=== PATIENT | male | born 1960 | race Caucasian/White ===

== ENCOUNTER → 2025-04-22 | Outpatient (CLI) | payer BC, SELFPAY ==
[2025-04-22 11:13] LABS: Hematocrit 40.7 % (40-54); Hemoglobin 14.1 g/dL (13.0-16.5); Immature Granulocytes Count 0.020 X10^3/uL (0.0-0.0); Mean Corp Hgb Conc 34.6 g/dL (32-36); Mean Corpuscular Volume 95.1 fL (80-94); Mean Platelet Vol. 10.6 fl (6.2-12.0); NRBC Flagged by Analyzer 0 % (0-5); Platelet Count 258 K/mm3 (150-450); RBC Distribution Width CV 12.3 % (11.6-14.6); RBC Distribution Width SD 42.5 fl (35.1-43.9); Red Blood Count 4.28 M/mm3 (4.6-6.2); White Blood Count 6.5 K/mm3 (4.4-11.0)
--- OUTSIDE RECORDS SUMMARY | 2025-04-22 21:01 | XMS RPT_ITS | CCD ---
Author Organization [facility] Care Team Providers Care Business Office Associate Name Role Phone Angela Gomez Unavailable Unavailable OnielKatie Unavailable Unavailable Angela Gomez Unavailable Unavailable Oniel, Katie Unavailable Unavailable Angela Gomez Unavailable Unavailable Oniel, Katie Unavailable Unavailable ONIEL, KATIE Unavailable Unavailable ONIEL, KATIE Unavailable Unavailable ONIEL, KATIE Unavailable Unavailable ONIEL, KATIE Unavailable Unavailable ONIEL, KATIE Unavailable Unavailable ONIEL, KATIE Unavailable Unavailable ONIEL, KATIE Unavailable Unavailable ONIEL, KATIE Unavailable Unavailable ONIEL, KATIE Unavailable Unavailable ANGELA GOMEZ Unavailable Unavailable ANGELA GOMEZ Unavailable Unavailable ONIEL, KATIE Unavailable Unavailable IOANA NEVES Attending Unavailable IOANA NEVES Primary Care Unavailable IOANA NEVES Admitting Unavailable FELIZ GARCIA-SHALA, NARA Primary Care Physician ([phone]) FELIZ JAMIL, NARA Primary Care Physician ([phone]) FELIZ JAMIL, NARA Attending Unavailabl e [employer] MANAG[employer] ASSOCIATE, NARA Primary Care Unavailabl e [employer] MANAG[employer] ASSOCIATE, NARA Attending Unavailabl e [address] [employer] MANAGEMENT ASSOCIATE, NARA Primary Care Unavailabl e [employer] [address] [employer] MANAGEMENT ASSOCIATE, NARA Primary Care Unavailabl e [employer] [address] [employer]CASH MANAGEMENT ASSOCIATE, NARA Attending Unavailabl ANASTASIA Bashir Attending Unavailable [address] [address] [employer] MANAGEMENT ASSOCIATE, NARA Primary Care Unavailabl e [employer] [employer] MANAGEMENT ASSOCIATE, NARA Attending Unavailabl e [employer] [address] [employer] MANAGEMENT ASSOCIATE, NARA Primary Care Unavailabl e Allergies Allergy Classification Reported Allergen(s) Allergy Type Date of Onset Reaction(s) Facility (7 sources) Coconut extract Drug Allergy [facility] Medications Current Medications Medication Drug Class(es) Dates Sig (Normalized) Sig (Original) acetaminophen 500 mg oral tablet (7 sources) Start: 10-14-2015 Tylenol Extra Strength 500 mg oral tablet Dose : 1,000 mg = 2 tab(s), Oral, q4h, PRN as needed for pain, # 120 tab(s), 0 Refill(s) Start Date: 10/14/15 Status: Ordered Quantity: 120.0 Unit: tab(s) Repeat number: 1 albuterol 0.83 mg/ml inhalation solution (7 sources) beta2-Adrenergic Agonist Start: 10-14-2015 take 1 dose by inhalation every six hours as needed albuterol 2.5 mg/3 mL (0.083%) inhalation solution Dose : 2.5 mg = 3 mL, Inhalation, q6h, PRN as needed for wheezing, 0 Refill(s) Start Date: 10/14/15 Status: Ordered Repeat number: 1 Start: 10-14-2015 take 1 dose by inhal ation every six hours as needed albuterol 2.5 mg/3 mL (0.083%) inhalation solution Dose : 2.5 mg = 3 mL, Inhalation, q6h, PRN as needed for wheezing, 0 Refill(s) Start Date: 10/14/15 Status: Ordered Albuterol (Eqv-ProAir HFA) 90 mcg/inh inhalation aerosol (7 sources) Start: 12-01-2024 take 1 dose by inhalation every six hours Albuterol (Eqv-ProAir HFA) 90 mcg/inh inhalation aerosol Dose = 1 puff(s), Inhalation, q6hr, # 8 gram(s), 11 Refill(s), Pharmacy: [facility] , Asthma, 170.2, cm, 12/01/24 7:22:00 EST, Height, kg, 12/01/24 7:22:00 EST, Dosing Weight Start Date: 12/01/24 Status: Ordered Quantity: 8.0 Unit: g Repeat number: 12 Indications: Unspecified asthma, uncomplicated; Start: 10-04-2021 take 1 dose by inhal ation every six hours Albuterol (Eqv-ProAir HFA) 90 mcg/inh inhalation aerosol Dose = 1 puff(s), Inhalation, q6hr, # 8 gram(s), 11 Refill(s), Pharmacy: [facility], 172.7, cm, 10/03/21 7:56:00 EST, Height, kg, 10/03/21 7:56:00 EST, Dosing Weight Start Date: 10/04/21 Status: Ordered Quantity: 8.0 Unit: g Repeat number: 12 Start: 10-04-2021 take 1 dose by inhal ation every six hours Albuterol (Eqv-ProAir HFA) 90 mcg/inh inhalation aerosol Dose = 1 puff(s), Inhalation, q6hr, # 8 gram(s), 11 Refill(s), Pharmacy: [facility], 172.7, cm, 10/03/21 7:56:00 EST, Height, kg, 10/03/21 7:56:00 EST, Dosing Weight Start Date: 10/04/21 Status: Ordered aspirin 81 mg delayed release oral tablet (7 sources) Platelet Aggregation Inhibitor, Nonsteroidal Anti-inflammatory Drug Start: 09-14-2019 aspirin 81 mg ora l delayed release tablet Dose : 81 mg = 1 tab(s), Oral, qDay, 0 Refill(s) Start Date: 09/14/19 Status: Ordered Repeat number: 1 Start: 09-14-2019 aspirin 81 mg oral delayed release tablet Dose : 81 mg = 1 tab(s), Oral, BID, 0 Refill(s) Start Date: 09/14/19 Status: Ordered azelastine hydrochloride 0.137 mg/actuat metered dose nasal spray (2 sources) Histamine-1 Receptor Antagonist Start: 01-01-2025 azelastine 137 mcg/inh (0.1%) nasal spray 137 mcg Dose = 1 spray(s), Nostril, each, BID, PRN as needed for allergy symptoms, 0 Refill(s) Start Date: 01/01/25 Status: Ordered Repeat number: 1 Start: 12-23-2024 azelastine 0.0 5% ophthalmic solution 0 Refill(s) Start Date: 12/23/24 Status: Ordered Repeat number: 1 azithromycin 250 mg oral tablet (1 source) Macrolide Antimicrobial Start: 09-04-2022 End: 09-09-2022 Zithromax Z-Ricardo 250 mg oral tablet Take two (2) tablets day 1-then one (1) tablet, Oral, Daily, X 5 day(s), # 6 tab(s), 0 Refill(s), 12/11/22 10:40:00 EST, Pharmacy: [facility] #[id number], Sore throat, 170.2, cm, 09/04/22 9:41:00 EST, Height, 112.5 Start Date: 09/04/22 Stop Date: 09/09/22 Status: Ordered benzonatate 100 mg oral capsule (1 source) Non-narcotic Antitussive Start: 02-06-2023 End: 02-16-2023 Tessalon Perles 100 mg oral capsule Dose : 100 mg = 1 cap(s), Oral, q8h, PRN as needed for cough, X 10 day(s), # 30 cap(s), 0 Refill(s), 02/16/23 9:23:00 EDT, Pharmacy: [facility] #[id number], Cough URI (upper respiratory infection), 172.7, cm, 02/06/23 8:57:00 EDT, Height Start Date: 02/06/23 Stop Date: 02/16/23 Status: Ordered chondroitin sulfates 600 mg / glucosamine hydrochloride 750 mg oral tablet (4 sources) Start: 10-14-2015 take 1 tablet by mouth once daily chondroitin-glucosa mine 600 mg-750 mg oral tablet 1 tab, Oral, Daily, 0 Refill(s) Start Date: 10/14/15 Status: Ordered cyclobenzaprine hydrochloride 10 mg oral tablet (7 sources) Muscle Relaxant Start: 10-14-2015 cyclobenzaprine 10 mg oral tablet Dose : 10 mg = 1 tab(s), Oral, TID, PRN for spasm, # 30 tab(s), 0 Refill(s) Start Date: 10/14/15 Status: Ordered Quantity: 30.0 Unit: tab(s) Repeat number: 1 desloratadine 5 mg oral tablet (6 sources) Histamine-1 Receptor Antagonist Start: 01-15-2014 Clarinex 5 mg oral tablet (NF) Dose : 5 mg = 1 tab(s), Oral, qDay Start Date: 01/15/14 Status: Ordered Repeat number: 1 diphenhydrAMINE hydrochloride 25 mg oral tablet (7 sources) Histamine-1 Receptor Antagonist Start: 06-15-2019 Benadryl 25 mg oral tablet Dose : 25 mg = 1 tab(s), Oral, qDay, PRN for allergy symptoms, 0 Refill(s) Start Date: 06/15/19 Status: Ordered Repeat number: 1 eletriptan 40 mg oral tablet (7 sources) Serotonin-1b and Serotonin-1d Receptor Agonist Start: 12-14-2019 eletriptan 40 mg oral tablet Dose : 40 mg = 1 tab(s), Oral, Daily, PRN for migraine headache, may repeat dose once in 2 hours, # 6 tab(s), 0 Refill(s) Start Date: 12/14/19 Status: Ordered Quantity: 6.0 Unit: tab(s) Repeat number: 1 Flonase 50 mcg/inh nasal spray (1 source) Start: 01-15-2014 Flonase 50 mcg/inh nasal spray Dose = 1 spray(s), Nasal, BID Start Date: 01/15/14 Status: Ordered fluticasone propionate 0.05 mg/actuat metered dose nasal spray (6 sources) Corticosteroid Start: 01-15-2014 Flonase 50 mcg/inh nasal spray Dose = 1 spray(s), Nasal, BID Start Date: 01/15/14 Status: Ordered Repeat number: 1 fluticasone / salmeterol (7 sources) Corticosteroid, beta2-Adrenergic Agonist Start: 12-14-2019 take 1 dose by inhalation twice daily Advair Diskus 250 mcg-50 mcg inhalation powder Dose = 1 puff(s), Inhalation, BID, 0 Refill(s) Start Date: 12/14/19 Status: Ordered Repeat number: 1 Start: 12-14-2019 take 1 dose by inhal ation once daily Advair Diskus 250 mcg-50 mcg inhalation powder Dose = 1 puff(s), Inhalation, qDay, 0 Refill(s) Start Date: 12/14/19 Status: Ordered Start: 12-14-2019 take 1 dose by inhal ation twice daily Advair Diskus 250 mcg-50 mcg inhalation powder Dose = 1 puff(s), Inhalation, BID, 0 Refill(s) Start Date: 12/14/19 Status: Ordered Start: 12-14-2019 take 1 dose by inhal ation once daily Advair Diskus 250 mcg-50 mcg inhalation powder Dose = 1 puff(s), Inhalation, Daily, 0 Refill(s) Start Date: 12/14/19 Status: Ordered lisinopril 5 mg oral tablet (7 sources) Angiotensin Converting Enzyme Inhibitor Start: 04-15-2024 End: 06-19-2025 lisinopril 5 mg oral tablet Dose : 2.5 mg = 0.5 tab(s), Oral, qDay, # 50 tab(s), 1 Refill(s), Pharmacy: [facility] , Type 2 diabetes mellitus, 170.2, cm, 12/01/24 7:22:00 EST, Height, kg, 12/01/24 7:22:00 EST, Dosing Weight Start Date: 12/01/24 Stop Date: 06/19/25 Status: Ordered Quantity: 50.0 Unit: tab(s) Repeat number: 2 Indications: Type 2 diabetes mellitus without complications; Start: 09-13-2022 lisinopril 5 m g oral tablet Dose : 2.5 mg = 0.5 tab(s), Oral, qDay, # 90 tab(s), 3 Refill(s), Pharmacy: [facility] #[id number], Type 2 diabetes mellitus, 171.45, cm, 09/13/22 10:54:00 EST, Height, kg, 09/13/22 10:54:00 EST, Dosing Weight Start Date: 09/13/22 Status: Ordered Start: 04-20-2021 lisinopril 5 m g oral tablet Dose : 5 mg = 1 tab(s), Oral, qDay, # 90 tab(s), 1 Refill(s), Pharmacy: [facility], 170.2, cm, 04/20/21 15:58:00 EDT, Height, kg, 04/20/21 15:58:00 EDT, Dosing Weight Start Date: 04/20/21 Status: Ordered loratadine 5 mg disintegrating oral tablet (1 source) Start: 01-01-2025 loratadine 5 m g oral tablet, disintegrating Dose : 5 mg = 1 tab(s), Oral, qDay, NOT Disintegrating, 0 Refill(s) Start Date: 01/01/25 Status: Ordered Repeat number: 1 metFORMIN hydrochloride 500 mg oral tablet (7 sources) Biguanide Start: 04-15-2024 End: 06-19-2025 MetFORMIN (Eqv-Glucophage XR) 500 mg oral tablet, EXTENDED RELEASE Dose : 500 mg = 1 tab(s), Oral, BID, # 200 tab(s), 1 Refill(s), Pharmacy: [facility] , 170.2, cm, 12/01/24 7:22:00 EST, Height, kg, 12/01/24 7:22:00 EST, Dosing Weight Start Date: 12/01/24 Stop Date: 06/19/25 Status: Ordered Quantity: 200.0 Unit: tab(s) Repeat number: 2 Start: 10-10-2023 MetFORMIN (Eqv -Glucophage XR) 500 mg oral tablet, EXTENDED RELEASE Dose : 500 mg = 1 tab(s), Oral, BID, # 180 tab(s), 1 Refill(s), Pharmacy: [facility] 172, cm, 10/10/23 15:56:00 EST, Height, kg, 10/10/23 15:56:00 EST, Dosing Weight Start Date: 10/10/23 Status: Ordered Start: 12-20-2022 End: 03-20-2023 MetFORMIN (Eqv-Glucophage XR ) 500 mg oral tablet, EXTENDED RELEASE Dose : 500 mg = 1 tab(s), Oral, qDay, 0 Refill(s) Start Date: 02/06/23 Status: Ordered Start: 01-24-2022 MetFORMIN (Eqv -Glucophage XR) 500 mg oral tablet, EXTENDED RELEASE Dose : 500 mg = 1 tab(s), Oral, qDay, # 90 tab(s), 3 Refill(s), Pharmacy: [facility], Type 2 diabetes mellitus, 172, cm, 12/15/21 8:59:00 EDT, Height, kg, 12/15/21 8:59:00 EDT, Dosing Weight Start Date: 01/24/22 Status: Ordered Start: 10-03-2021 MetFORMIN (Eqv -Glucophage XR) 500 mg oral tablet, EXTENDED RELEASE Dose : 500 mg = 1 tab(s), Oral, qDay, # 90 tab(s), 0 Refill(s), Pharmacy: [facility], Type 2 diabetes mellitus, 172.7, cm, 10/03/21 7:56:00 EST, Height, kg, 10/03/21 7:56:00 EST, Dosing Weight Start Date: 10/03/21 Status: Ordered methylPREDNISolone 4 mg oral tablet (1 source) Corticosteroid Start: 09-04-2022 End: 09-10-2022 Medrol Dosepak 4 mg oral tablet Per Dosepak Instructions, Oral, Daily, as directed on package labeling, X 6 day(s), # 1 packet(s), 0 Refill(s), 09/10/22 10:40:00 EST, Pharmacy: [facility] #[id number], Sore throat, 170.2, cm, 09/04/22 9:41:00 EST, Height Start Date: 09/04/22 Stop Date: 09/10/22 Status: Ordered montelukast 10 mg oral tablet (7 sources) Leukotriene Receptor Antagonist Start: 07-11-2021 Singulair 10 mg oral tablet Dose : 10 mg = 1 tab(s), Oral, qPM, # 90 tab(s), 1 Refill(s), Pharmacy: [facility], 170.2, cm, 04/20/21 15:58:00 EDT, Height, kg, 04/20/21 15:58:00 EDT, Dosing Weight Start Date: 07/11/21 Status: Ordered Quantity: 90.0 Unit: tab(s) Repeat number: 2 nortriptyline 75 mg oral capsule (7 sources) Tricyclic Antidepressant Start: 12-14-2019 nortriptyline 75 mg oral capsule Dose : 75 mg = 1 cap(s), Oral, qHS, # 30 cap(s), 0 Refill(s) Start Date: 12/14/19 Status: Ordered Quantity: 30.0 Unit: cap(s) Repeat number: 1 oxymetazoline hydrochloride 0.5 mg/ml nasal spray (6 sources) Start: 03-09-2022 Afrin 0.05% na juana spray Dose = 1 spray(s), Intranasal, BID, # 30 mL, 0 Refill(s) Start Date: 03/09/22 Status: Ordered Quantity: 30.0 Unit: mL Repeat number: 1 PEG-3350 with Electrolytes (Eqv-GoLYTELY) oral powder for reconstitution (1 source) Start: 01-13-2025 PEG-3350 with Electrolytes (Eqv-GoLYTELY) oral powder for reconstitution See Instructions, Take as directed starting 1 day before colonoscopy. Follow instructions as provided by your GI provider at [facility]., # 1 EA, 0 Refill(s), Pharmacy: [facility] #[id number], 172.7, cm, 01/13/25 11:49:00 EDT, Height, kg, 01/13/25 11:49:00 EDT, Dosing Weight Start Date: 01/13/25 Status: Ordered Quantity: 1.0 Unit: EA Repeat number: 1 sertraline 100 mg oral tablet (7 sources) Serotonin Reuptake Inhibitor Start: 12-01-2024 End: 06-19-2025 sertraline 100 mg oral tablet Dose : 100 mg = 1 tab(s), Oral, qDay, # 100 tab(s), 1 Refill(s), Pharmacy: [facility] , Depression, 170.2, cm, 12/01/24 7:22:00 EST, Height, kg, 12/01/24 7:22:00 EST, Dosing Weight Start Date: 12/01/24 Stop Date: 06/19/25 Status: Ordered Quantity: 100.0 Unit: tab(s) Repeat number: 2 Indications: Major depressive disorder, single episode, unspecified; Start: 04-15-2024 sertraline 100 mg oral tablet Dose : 100 mg = 1 tab(s), Oral, qDay, # 90 tab(s), 1 Refill(s), Pharmacy: [facility], Depression, 169, cm, 04/15/24 14:30:00 EDT, Height, kg, 04/15/24 14:22:00 EDT, Dosing Weight Start Date: 04/15/24 Status: Ordered Quantity: 90.0 Unit: tab(s) Repeat number: 2 Indication: Major depressive disorder, single episode, unspecified Start: 10-10-2023 sertraline 100 mg oral tablet Dose : 100 mg = 1 tab(s), Oral, qDay, # 90 tab(s), 1 Refill(s), Pharmacy: [facility] Depression, 172, cm, 10/10/23 15:56:00 EST, Height, kg, 10/10/23 15:56:00 EST, Dosing Weight Start Date: 10/10/23 Status: Ordered Start: 09-13-2022 Zoloft 100 mg oral tablet Dose : 100 mg = 1 tab(s), Oral, qDay, # 90 tab(s), 3 Refill(s), [facility]: [facility] #[id number], Depression, 171.45, cm, 09/13/22 10:54:00 EST, Height, kg, 09/13/22 10:54:00 EST, Dosing Weight Start Date: 09/13/22 Status: Ordered Start: 04-11-2022 Zoloft 100 mg oral tablet Dose : 100 mg = 1 tab(s), Oral, qDay, # 90 tab(s), 1 Refill(s), Pharmacy: [facility], Depression, 170.2, cm, 03/09/22 14:54:00 EDT, Height, kg, 03/09/22 14:54:00 EDT, Dosing Weight Start Date: 04/11/22 Status: Ordered Start: 10-03-2021 Zoloft 100 mg oral tablet Dose : 100 mg = 1 tab(s), Oral, qDay, # 90 tab(s), 0 Refill(s), Pharmacy: [facility], Depression, 172.7, cm, 10/03/21 7:56:00 EST, Height, kg, 10/03/21 7:56:00 EST, Dosing Weight Start Date: 10/03/21 Status: Ordered simvastatin 80 mg oral tablet (7 sources) HMG-CoA Reductase Inhibitor Start: 04-15-2024 End: 06-19-2025 Zocor 80 mg oral tablet Dose : 80 mg = 1 tab(s), Oral, qHS, # 100 tab(s), 1 Refill(s), Pharmacy: [facility] , Type 2 diabetes mellitus, 170.2, cm, 12/01/24 7:22:00 EST, Height, kg, 12/01/24 7:22:00 EST, Dosing Weight Start Date: 12/01/24 Stop Date: 06/19/25 Status: Ordered Quantity: 100.0 Unit: tab(s) Repeat number: 2 Indications: Type 2 diabetes mellitus without complications; Start: 10-10-2023 Zocor 80 mg or al tablet Dose : 80 mg = 1 tab(s), Oral, qHS, # 90 tab(s), 3 Refill(s), [facility] Type 2 diabetes mellitus, 172, cm, 10/10/23 15:56:00 EST, Height, kg, 10/10/23 15:56:00 EST, Dosing Weight Start Date: 10/10/23 Status: Ordered Start: 09-13-2022 Zocor 80 mg or al tablet Dose : 80 mg = 1 tab(s), Oral, qHS, # 90 tab(s), 3 Refill(s), [id number], Type 2 diabetes mellitus, 171.45, cm, 09/13/22 10:54:00 EST, Height, kg, 09/13/22 10:54:00 EST, Dosing Weight Start Date: 09/13/22 Status: Ordered Start: 04-11-2022 Zocor 80 mg or al tablet Dose : 80 mg = 1 tab(s), Oral, qHS, # 90 tab(s), 1 Refill(s), Pharmacy: [facility], Type 2 diabetes mellitus, 170.2, cm, 03/09/22 14:54:00 EDT, Height, kg, 03/09/22 14:54:00 EDT, Dosing Weight Start Date: 04/11/22 Status: Ordered Start: 10-03-2021 Zocor 80 mg or al tablet Dose : 80 mg = 1 tab(s), Oral, qHS, # 90 tab(s), 0 Refill(s), Pharmacy: [facility], Type 2 diabetes mellitus, 172.7, cm, 10/03/21 7:56:00 EST, Height, kg, 10/03/21 7:56:00 EST, Dosing Weight Start Date: 10/03/21 Status: Ordered topiramate 50 mg oral tablet (4 sources) Start: 01-21-2023 topiramate 50 mg oral tablet Dose : 50 mg = 1 tab(s), Oral, qDay, 0 Refill(s) Start Date: 01/21/23 Status: Ordered Repeat number: 1 Completed/Discontinued Medications Medication Drug Class(es) Dates Sig (Normalized) Sig (Original) 0.5 ml dulaglutide 3 mg/ml auto-injector (2 sources) GLP-1 Receptor Agonist Start: 12-27-2022 inject 0.5 mL by subcutaneous injection every week Trulicity Pen 1.5 mg/0.5 mL subcutaneous solution Dose : 1.5 mg = 0.5 mL, Subcutaneous, qWeek, rotate injection sites, # 2 mL, 2 Refill(s), 0.5 mL/Pen, Pharmacy: [facility], 171.45, cm, 12/20/22 16:00:00 EDT, Height Start Date: 12/27/22 Status: Ordered Start: 10-16-2022 End: 01-14-2023 inject 0.5 mL by subcutaneous injection every week Trulicity Pen 0.75 mg/0.5 mL subcutaneous solution Dose : 0.75 mg = 0.5 mL, Subcutaneous, qWeek, mail in rotate injection sites, # 6.5 mL, 0 Refill(s), 0.5 mL/Pen, Pharmacy: [facility], Type 2 diabetes mellitus, 171.45, cm, 09/13/22 10:54:00 EST, Height Start Date: 10/16/22 Stop Date: 01/14/23 Status: Ordered Problems Active Problems Problem Classification Problem Date Documented Date Episodic/Chronic Asthma (7 sources) Asthma 01-15-2014 Chronic Chronic kidney disease (2 sources) Chronic kidney disease stage 2 04-15-2024 Chronic Diabetes mellitus with complications (1 source) Chronic kidney disease due to type 2 diabetes mellitus 12-01-2024 Chronic Diabetes mellitus without complication (13 sources) Diabetes mellitus; Translations: [Type 2 diabetes mellitus] Onset: 7 10-07-2020 Chronic Disorders of lipid metabolism (7 sources) Hypercholesterolemia 01-15-2014 Chronic Headache; including migraine (7 sources) Migraine 06-15-2019 Chronic Mood disorders (7 sources) Depressive disorder 09-07-2014 Chronic Osteoarthritis (8 sources) Unilateral primary osteoarthritis, left knee; Translations: [Arthritis] Onset: 7 10-19-2015 Chronic Otitis media and related conditions (7 sources) Eustachian tube disorder 06-15-2019 Episodi c Pleurisy; pneumothorax; pulmonary collapse (7 sources) Pneumothorax 09-07-2014 Episodic Comment on above: left Residual codes; unclassified (7 sources) Sleep apnea 10-19-2015 Chronic Superficial injury; contusion (7 sources) Corneal abrasion 01-15-2014 Episodic Unclassified (1 source) Unknown / UNK(Unknown) Onset: 7 Unclassified (20 sources) Patient encounter status 10-03-2021 Viral infection (3 sources) Disease caused by 2019-nCoV 07-29-2023 Past or Other Problems Problem Classification Problem Date Documented Da te Episodic/Chronic Other connective tissue disease (1 source) Pain in left lower leg; Translations: [PAIN IN LEFT LOWER LEG] Onset: 07-25-2017 Episodic Results Test Name Value Interpretation Reference Range Facility Final Surgical Pathology Rep santos 01-27-2025 Final Surgical Pathology Report . Pathology Reports Accession: Collected Date/Time: Received Date/Time: Pathologist: [id number] 01/25/2025 13:07 EDT 01/26/2025 08:41 EDT MD LUIS ZAMORA Final Surgical Pathology Report DIAGNOSIS: RECTUM, BIOPSY: - HYPERPLASTIC POLYP CLINICAL INFORMATION: ENCOUNTER FOR SCREENING FOR INTESTINAL INFECTIOUS DISEASES Procedure: COLONOSCOPY Preoperative diagnosis: SCREENING Postoperative diagnosis: SCREENING SPECIMEN: A RECTAL POLYP GROSS DESCRIPTION: All parts labelled with patient name and [id number] received in formalin labeled "rectal polyp" is 1 turpin-brown tissue fragment measuring 0.4 x 0.2 cm. TS-1 Ariana Hendrickson, Grossing Doorperson/ Dr. Dionicio Thompson, Pathologist Performed by Ariana Hendrickson MICROSCOPIC DESCRIPTION: The microscopic examination is performed, except in the case of Gross Only. Verified by Pathology Report verified by [facility] LUIS ZAMORA MD Sign out Date: 01/27/2025 15:39 Performing Lab: [facility], [address] [place] [address] Pathology Dept Disclaimer If ancillary studies were utilized, the following Laboratory Developed Test (LDT) disclaimer will apply: Under CLIA requirements, [facility] is qualified to perform high complexity testing. For all ancillary stains, positive and negative controls stain appropriately. Performance characteristics of immunohistochemical and chromogenic in-situ hybridization tests have been determined by [facility]. These tests are used for clinical purposes, They should not be regarded as investigational or for research. . Normal [facility] By: Ervin Lopez on 01-25-2025 Glucose [Mass/Vol] 68 mg/dL Low 82 - 115 mg/dL [facility] Work Phone: .Auto Diffon 11-24-2024 Basophil, Absolute 0.1 10 3/mcL Normal 0.0-0.2 [facility] Comment on above: Performed By: #### A DIFF, LIPID, CBC, ANEU, PSA, GFR, CMP #### [address] [address] Basophils/100 WBC (Bld) 0.8 % Normal 0.0-2.5 [facility] Comment on above: Performed By: #### A DIFF, LIPID, CBC, ANEU, PSA, GFR, CMP #### [address] [address] Eosinophil, Absolute 0.1 10 3/mcL Normal 0.0-0.7 [facility] Comment on above: Performed By: #### A DIFF, LIPID, CBC, ANEU, PSA, GFR, CMP #### [address] [address] Eosinophils/100 WBC (Bld) 1.2 % Normal 0.0-7.0 [facility] Comment on above: Performed By: #### A DIFF, LIPID, CBC, ANEU, PSA, GFR, CMP #### [address] [address] Lymphocyte, Absolute 2.0 10 3/mcL Normal 0.9-4.3 [facility] Comment on above: Performed By: #### A DIFF, LIPID, CBC, ANEU, PSA, GFR, CMP #### [address] [address] Lymphocytes/100 WBC (Bld) 28.0 % Normal 20.0-40.0 [facility] Comment on above: Performed By: #### A DIFF, LIPID, CBC, ANEU, PSA, GFR, CMP #### [address] [address] Monocyte, Absolute 0.6 10 3/mcL Normal 0.1-1.4 [facility] Comment on above: Performed By: #### A DIFF, LIPID, CBC, ANEU, PSA, GFR, CMP #### [address] [place], [place] [address] Monocytes/100 WBC (Bld) 8.2 % Normal 2.0-13.0 [facility] Comment on above: Performed By: #### A DIFF, LIPID, CBC, ANEU, PSA, GFR, CMP #### [address] [place], [place] [address] Neutrophils/100 WBC (Bld) 61.8 % Normal 50.0-75.0 [facility] Comment on above: Performed By: #### A DIFF, LIPID, CBC, ANEU, PSA, GFR, CMP #### [address] [address] .GFRon 11-24-2024 Estimated Glomerular Filtration Rate 64 ml/min/1.73sqm Normal [facility] Comment on above: Result Comment: Stages of Chronic Kidney Disease (CKD) Stage Description eGFR(ml/min/1.73 sq.m.) CKD 1 Normal kidney function or >=90 normal kindney function with possible kidney damage (ex. Proteinuria) CKD 2 Kidney damage with mild loss 60-89 of kidney function CKD 3a Mild to moderate loss of kidney 45-59 function CKD 3b Moderate to severe loss of 30-44 of kindey function CKD 4 Severe loss of kidney function 15-29 CKD 5 Kidney failure <15 Note: (go live 2024) the eGFR calculation was updated to the 2020 CKD-EPI creatinine equation without a race factor to calculate the eGFR results. Performed By: #### A DIFF, LIPID, CBC, ANEU, PSA, GFR, CMP #### [address] [address] .NEUABSon 11-24-2024 Neutrophil, Absolute 4.4 10 3/mcL Normal 2.3-8.1 [facility] [facility] Comment on above: Performed By: #### A DIFF, LIPID, CBC, ANEU, PSA, GFR, CMP #### [address] [place], [place] [address] CBCon 11-24-2024 Erythrocyte distribution width (RBC) [Ratio] 13.0 % Normal 11.5-15.5 [facility] Comment on above: Performed By: #### A DIFF, LIPID, CBC, ANEU, PSA, GFR, CMP #### [address] [address] Hematocrit (Bld) [Volume fraction] 41.8 % Normal 40.0-52.0 [facility] Comment on above: Performed By: #### A DIFF, LIPID, CBC, ANEU, PSA, GFR, CMP #### [address] [address] Hgb 14.5 G/dL Normal 13.0-17.5 [facility] Comment on above: Performed By: #### A DIFF, LIPID, CBC, ANEU, PSA, GFR, CMP #### [address] [address] MCH (RBC) [Entitic mass] 33.2 pg High 27.0-33.0 [facility] Comment on above: Performed By: #### A DIFF, LIPID, CBC, ANEU, PSA, GFR, CMP #### [address] [address] MCHC 34.6 G/dL Normal 32.0-36.0 [facility] Comment on above: Performed By: #### A DIFF, LIPID, CBC, ANEU, PSA, GFR, CMP #### [address] [address] MCV (RBC) [Entitic vol] 95.8 fL Normal 81.0-100.0 [facility] Comment on above: Performed By: #### A DIFF, LIPID, CBC, ANEU, PSA, GFR, CMP #### [address] [address] Platelet 243 10 3/mcL Normal 150-450 [facility] Comment on above: Performed By: #### A DIFF, LIPID, CBC, ANEU, PSA, GFR, CMP #### [address] [address] Platelet mean volume (Bld) [Entitic vol] 8.6 fL Normal 6.4-10.5 [facility] Comment on above: Performed By: #### A DIFF, LIPID, CBC, ANEU, PSA, GFR, CMP #### [address] [address] RBC 4.36 10 6/mcL Low 4.50-6.00 [facility] Comment on above: Performed By: #### A DIFF, LIPID, CBC, ANEU, PSA, GFR, CMP #### [address] [address] WBC 7.1 10 3/mcL Normal 4.5-10.8 [facility] Comment on above: Performed By: #### A DIFF, LIPID, CBC, ANEU, PSA, GFR, CMP #### [address] [address] CMPon 11-24-2024 Albumin Level 4.1 G/dL Normal 3.4-4.8 [facility] Comment on above: Performed By: #### A DIFF, LIPID, CBC, ANEU, PSA, GFR, CMP #### [address] [address] Albumin/Globulin [Mass ratio] 1.4 {ratio} Normal 1.1-2.5 [facility] Comment on above: Performed By: #### A DIFF, LIPID, CBC, ANEU, PSA, GFR, CMP #### [address] [address] ALP [Catalytic activity/Vol] 84 U/L Normal 40-135 [facility] Comment on above: Performed By: #### A DIFF, LIPID, CBC, ANEU, PSA, GFR, CMP #### [address] [address] ALT [Catalytic activity/Vol] 23 U/L Normal 16-63 [facility] Comment on above: Performed By: #### A DIFF, LIPID, CBC, ANEU, PSA, GFR, CMP #### [address] [address] AST [Catalytic activity/Vol] 12 U/L Normal 10-40 [facility] Comment on above: Performed By: #### A DIFF, LIPID, CBC, ANEU, PSA, GFR, CMP #### [address] [address] Bili Total 0.8 mg/dL Normal 0.2-1.0 [facility] Comment on above: Result Comment: Use of this assay is not recommended for patients undergoing treatment with eltrombopag due to the potential for falsely elevated results. Performed By: #### A DIFF, LIPID, CBC, ANEU, PSA, GFR, CMP #### [address] [address] BUN/Creatinine Ratio 17 ratio Normal 7-27 [facility] Comment on above: Performed By: #### A DIFF, LIPID, CBC, ANEU, PSA, GFR, CMP #### [address] [address] Calcium [Mass/Vol] 9.1 mg/dL Normal 8.4-10.2 [facility] Comment on above: Performed By: #### A DIFF, LIPID, CBC, ANEU, PSA, GFR, CMP #### [address] [address] Chloride [Moles/Vol] 104 mmol/L Normal 98-107 [facility] Comment on above: Performed By: #### A DIFF, LIPID, CBC, ANEU, PSA, GFR, CMP #### [address] [address] CO2 [Moles/Vol] 26 mmol/L Normal 23-31 [facility] Comment on above: Performed By: #### A DIFF, LIPID, CBC, ANEU, PSA, GFR, CMP #### [address] [address] Creatinine [Mass/Vol] 1.26 mg/dL Normal 0.70-1.30 [facility] Comment on above: Result Comment: Test ing performed on Siemens Dimension EXL analyzer using a modified kinetic Maude technique. Performed By: #### A DIFF, LIPID, CBC, ANEU, PSA, GFR, CMP #### [address] [address] Electrolyte Balance 7.0 mEq/L Normal 4.0-15.0 [facility] Comment on above: Performed By: #### A DIFF, LIPID, CBC, ANEU, PSA, GFR, CMP #### [address] [address] Globulin 3.0 G/dL Normal 1.5-3.8 [facility] Comment on above: Performed By: #### A DIFF, LIPID, CBC, ANEU, PSA, GFR, CMP #### [address] [address] Glucose [Mass/Vol] 128 mg/dL High 80-115 [facility] Comment on above: Performed By: #### A DIFF, LIPID, CBC, ANEU, PSA, GFR, CMP #### [address] [address] Potassium [Moles/Vol] 4.3 mmol/L Normal 3.5-5.1 [facility] Comment on above: Performed By: #### A DIFF, LIPID, CBC, ANEU, PSA, GFR, CMP #### [address] [address] Sodium [Moles/Vol] 137 mmol/L Normal 136-145 [facility] Comment on above: Performed By: #### A DIFF, LIPID, CBC, ANEU, PSA, GFR, CMP #### [address] [address] Total Protein 7.1 G/dL Normal 6.4-8.2 [facility] Comment on above: Performed By: #### A DIFF, LIPID, CBC, ANEU, PSA, GFR, CMP #### [address] [address] Urea nitrogen [Mass/Vol] 22 mg/dL High 7-18 [facility] Comment on above: Performed By: #### A DIFF, LIPID, CBC, ANEU, PSA, GFR, CMP #### [address] [address] LABORATORYOrdered By: SYSTEM SYSTEM on 11-24-2024 Albumin BCP dye [Mass/Vol] 4.1 G/dL Normal 3.4 - 4.8 G/dL AO ADM SS Albumin/Globulin [Mass ratio] 1.4 {ratio} Normal 1.1 - 2.5 ratio AO ADM SS ALP [Catalytic activity/Vol] 84 U/L Normal 40 - 135 U/L AO ADM SS ALT With P-5'-P [Catalytic activity/Vol] 23 U/L Normal 16 - 63 U/L AO ADM SS AST With P-5'-P [Catalytic activity/Vol] 12 U/L Normal 10 - 40 U/L AO ADM SS Basophils (Bld) [#/Vol] 0.1 103/mcL Normal 0.0 - 0.2 10^3/mcL AO Workflow SS Basophils/100 WBC (Bld) 0.8 % Normal 0.0 - 2.5 % AO Workflow SS Bilirubin [Mass/Vol] 0.8 mg/dL Normal 0.2 - 1 .0 mg/dL AO ADM SS Comment on above: Interpretive Data: U se of this assay is not recommended for patients undergoing treatment with eltrombopag due to the potential for falsely elevated results. Calcium [Mass/Vol] 9.1 mg/dL Normal 8.4 - 10. 2 mg/dL AO ADM SS Chloride [Moles/Vol] 104 mmol/L Normal 98 - 10 7 mmol/L AO ADM SS CO2 [Moles/Vol] 26 mmol/L Normal 23 - 31 mmol/L AO ADM SS Creatinine [Mass/Vol] 1.26 mg/dL Normal 0.70 - 1.30 mg/dL AO ADM SS Comment on above: Interpretive Data: T esting performed on Siemens Dimension EXL analyzer using a modified kinetic Maude technique. Electrolyte Balance 7.0 mEq/L Normal 4.0 - 15 .0 mEq/L AO ADM SS Eosinophil, Absolute 0.1 103/mcL Normal 0.0 - 0 .7 10^3/mcL AO Workflow SS Eosinophils/100 WBC (Bld) 1.2 % Normal 0.0 - 7.0 % AO Workflow SS Erythrocyte distribution width (RBC) [Ratio] 13.0 % Normal 11.5 - 15.5 % AO Workflow SS Estimated Glomerular Filtration Rate 64 ml/min/1.73sqm Invalid Interpretation Code AO Chemistry S Comment on above: Interpretive Data: Stages of Chronic Kidney Disease (CKD) Stage Description eGFR(ml/min/1.73 sq.m.) CKD 1 Normal kidney function or >=90 normal kindney function with possible kidney damage (ex. Proteinuria) CKD 2 Kidney damage with mild loss 60-89 of kidney function CKD 3a Mild to moderate loss of kidney 45-59 function CKD 3b Moderate to severe loss of 30-44 of kindey function CKD 4 Severe loss of kidney function 15-29 CKD 5 Kidney failure <15 Note: (go live 2024) the eGFR calculation was updated to the 2020 CKD-EPI creatinine equation without a race factor to calculate the eGFR results. Globulin 3.0 G/dL Normal 1.5 - 3.8 G/dL AO ADM SS Glucose [Mass/Vol] 128 mg/dL High 80 - 115 mg/dL AO ADM SS Hematocrit (Bld) [Volume fraction] 41.8 % Normal 40.0 - 52.0 % AO Workflow SS Hemoglobin (Bld) [Mass/Vol] 14.5 G/dL Normal 13.0 - 17.5 G/dL AO Workflow SS Lymphocytes (Bld) [#/Vol] 2.0 103/mcL Normal 0.9 - 4.3 10^3/mcL AO Workflow SS Lymphocytes/100 WBC (Bld) 28.0 % Normal 20.0 - 40.0 % AO Workflow SS MCH (RBC) [Entitic mass] 33.2 pg High 27.0 - 33.0 pg AO Workflow SS MCHC 34.6 G/dL Normal 32.0 - 36.0 G/dL AO Workflow SS MCV (RBC) [Entitic vol] 95.8 fL Normal 81.0 - 100.0 fL AO Workflow SS Monocytes (Bld) [#/Vol] 0.6 103/mcL Normal 0.1 - 1.4 10^3/mcL AO Workflow SS Monocytes/100 WBC (Bld) 8.2 % Normal 2.0 - 13.0 % AO Workflow SS Neutrophils (Bld) [#/Vol] 4.4 103/mcL Normal 2.3 - 8.1 10^3/mcL AO Workflow SS Neutrophils/100 WBC (Bld) 61.8 % Normal 50.0 - 75.0 % AO Workflow SS Platelet mean volume (Bld) [Entitic vol] 8.6 fL Normal 6.4 - 10.5 fL AO Workflow SS Platelets (Bld) [#/Vol] 243 103/mcL Normal 150 - 450 10^3/mcL AO Workflow SS Potassium [Moles/Vol] 4.3 mmol/L Normal 3.5 - 5.1 mmol/L AO ADM SS Prostate specific Ag [Mass/Vol] 1.67 ng/mL Normal 0.00 - 4.00 ng/mL AO ADM SS Protein [Mass/Vol] 7.1 G/dL Normal 6.4 - 8.2 G/dL AO ADM SS RBC (Bld) [#/Vol] 4.36 106/mcL Low 4.50 - 6.0 0 10^6/mcL AO Workflow SS Sodium [Moles/Vol] 137 mmol/L Normal 136 - 145 mmol/L AO ADM SS Urea nitrogen [Mass/Vol] 22 mg/dL High 7 - 18 mg/dL AO ADM SS Urea nitrogen/Creatinine [Mass ratio] 17 ratio Normal 7 - 27 ratio AO ADM SS WBC (Bld) [#/Vol] 7.1 103/mcL Normal 4.5 - 10.8 10^3/mcL AO Workflow SS LABORATORYOrdered By: Mirna Vance on 11-24-2024 Cholesterol [Mass/Vol] 158 mg/dL Normal 0 - 200 mg/dL AO ADM SS Comment on above: Interpretive Data: C holesterol Reference Interval: Less than 200 Desirable 200-239 Borderline high risk 240 and above High risk Cholesterol in HDL [Mass/Vol] 62 mg/dL High 40 - 60 mg/dL AO ADM SS Cholesterol in LDL [Mass/Vol] 81 mg/dL Normal 0 - 130 mg/dL AO ADM SS Triglyceride [Mass/Vol] 74 mg/dL Normal 0 - 150 mg/dL AO ADM SS Comment on above: Interpretive Data: T riglyceride Reference Interval: Less than 150 Normal 150-199 Borderline high risk 200-499 High risk 500 or higher Very high risk LIPIDon 11-24-2024 Cholesterol [Mass/Vol] 158 mg/dL Normal 0-200 [facility] Comment on above: Result Comment: Chol esterol Reference Interval: Less than 200 Desirable 200-239 Borderline high risk 240 and above High risk Performed By: #### A DIFF, LIPID, CBC, ANEU, PSA, GFR, CMP #### [address] [place], [place] [address] Cholesterol in HDL [Mass/Vol] 62 mg/dL High 40-60 [facility] Comment on above: Performed By: #### A DIFF, LIPID, CBC, ANEU, PSA, GFR, CMP #### [address] [address] Cholesterol in LDL [Mass/Vol] 81 mg/dL Normal 0-130 [facility] Comment on above: Performed By: #### A DIFF, LIPID, CBC, ANEU, PSA, GFR, CMP #### [address] [address] Triglyceride [Mass/Vol] 74 mg/dL Normal 0-150 [facility] Comment on above: Result Comment: Trig lyceride Reference Interval: Less than 150 Normal 150-199 Borderline high risk 200-499 High risk 500 or higher Very high risk Performed By: #### A DIFF, LIPID, CBC, ANEU, PSA, GFR, CMP #### [address] [address] PSAon 11-24-2024 Prostate Specific Antigen 1.67 ng/mL Normal 0.00-4.00 [facility] Comment on above: Performed By: #### A DIFF, LIPID, CBC, ANEU, PSA, GFR, CMP #### [address] [address] MALBRon 01-10-2024 U Creatinine 107.7 mg/dL Normal 39.0-259.0 [facility] ([place]) Comment on above: Performed By: #### M ALBR #### [address] [address] U Microalb 1139 mcg/dL Normal [facility] ([place]) Comment on above: Performed By: #### M ALBR #### [address] [address] U Ratio Alb/Cre 11 mcg/mg Normal 0-30 [facility] ([place]) Comment on above: Performed By: #### M ALBR #### [address] [address] LABORATORYOrdered By: Javad Silvestre on 01-09-2024 Albumin DL <= 20 mg/L (U) [Mass/Vol] 1139 mcg/dL Invalid Interpretation Code AO ADM SS Albumin/Creatinine DL <= 20 mg/L (U) [Mass ratio] 11 mcg/mg Normal 0 - 30 mcg/mg AO ADM SS Creatinine (U) [Mass/Vol] 107.7 mg/dL Normal 39.0 - 259.0 mg/dL AO ADM SS .Auto Diffon 10-03-2023 Basophil, Absolute 0.1 10 3/mcL Normal 0.0-0.2 [facility] ([place]) Comment on above: Performed By: #### C BC, LIPID, ADIFF, PSA, ANEU, CMP, GFR #### [address] [address] Basophils/100 WBC (Bld) 0.8 % Normal 0.0-2.5 [facility] ([place]) Comment on above: Performed By: #### C BC, LIPID, ADIFF, PSA, ANEU, CMP, GFR #### [address] [address] Eosinophil, Absolute 0.1 10 3/mcL Normal 0.0-0.4 [facility] Comment on above: Performed By: #### C BC, LIPID, ADIFF, PSA, ANEU, CMP, GFR #### [address] [address] Eosinophils/100 WBC (Bld) 1.3 % Normal 0.0-7.0 [facility] ([place]) Comment on above: Performed By: #### C BC, LIPID, ADIFF, PSA, ANEU, CMP, GFR #### [address] [address] Lymphocyte, Absolute 2.3 10 3/mcL Normal 0.8-3.9 [facility] Comment on above: Performed By: #### C BC, LIPID, ADIFF, PSA, ANEU, CMP, GFR #### [address] [address] Lymphocytes/100 WBC (Bld) 33.5 % Normal 10.0-50.0 [facility] ([place]) Comment on above: Performed By: #### C BC, LIPID, ADIFF, PSA, ANEU, CMP, GFR #### [address] [address] Monocyte, Absolute 0.6 10 3/mcL Normal 0.2-1.0 [facility] ([place]) Comment on above: Performed By: #### C BC, LIPID, ADIFF, PSA, ANEU, CMP, GFR #### [address] [address] Monocytes/100 WBC (Bld) 9.0 % Normal 1.7-13.0 [facility] ([place]) Comment on above: Performed By: #### C BC, LIPID, ADIFF, PSA, ANEU, CMP, GFR #### [address] [address] Neutrophils/100 WBC (Bld) 55.4 % Normal 37.0-80.0 [facility] ([place]) Comment on above: Performed By: #### C BC, LIPID, ADIFF, PSA, ANEU, CMP, GFR #### [address] [address] .GFRon 10-03-2023 GFR Non- 62 ml/min/1.73sqm Normal [facility] ([place]) Comment on above: Result Comment: GFR Population mean for , Non- Americans Ages 20-29 = 116 mL/min/1.73 sq.m. Ages 30-39 = 107 mL/min/1.73 sq.m. Ages 40-49 = 99 mL/min/1.73 sq.m. Ages 50-59 = 93 mL/min/1.73 sq.m. Ages 60-69 = 85 mL/min/1.73 sq.m. Ages 70+ = 75 mL/min/1.73 sq.m. Chronic Kidney Disease: Less than 60 mL/min/1.73 square meters End Stage Renal Disease: Less than 15 mL/min/1.73 square meters Performed By: #### C BC, LIPID, ADIFF, PSA, ANEU, CMP, GFR #### [address] [address] GFR 75 ml/min/1.73sqm Normal [facility] ([place]) Comment on above: Result Comment: GFR Population mean for , Non- Americans Ages 20-29 = 116 mL/min/1.73 sq.m. Ages 30-39 = 107 mL/min/1.73 sq.m. Ages 40-49 = 99 mL/min/1.73 sq.m. Ages 50-59 = 93 mL/min/1.73 sq.m. Ages 60-69 = 85 mL/min/1.73 sq.m. Ages 70+ = 75 mL/min/1.73 sq.m. Chronic Kidney Disease: Less than 60 mL/min/1.73 square meters End Stage Renal Disease: Less than 15 mL/min/1.73 square meters Performed By: #### C BC, LIPID, ADIFF, PSA, ANEU, CMP, GFR #### [address] [address] .NEUABSon 10-03-2023 Neutrophil, Absolute 3.8 10 3/mcL Normal 2.9-6.2 [facility] Comment on above: Performed By: #### C BC, LIPID, ADIFF, PSA, ANEU, CMP, GFR #### [address] [address] CBCon 10-03-2023 Erythrocyte distribution width (RBC) [Ratio] 13.2 % Normal 11.5-14.5 [facility] ([place]) Comment on above: Performed By: #### C BC, LIPID, ADIFF, PSA, ANEU, CMP, GFR #### [address] [address] Hematocrit (Bld) [Volume fraction] 41.5 % Low 42.0-52.0 [facility] ([place]) Comment on above: Performed By: #### C BC, LIPID, ADIFF, PSA, ANEU, CMP, GFR #### [address] [address] Hgb 14.4 G/dL Normal 14.0-18.0 [facility] ([place]) Comment on above: Performed By: #### C BC, LIPID, ADIFF, PSA, ANEU, CMP, GFR #### [address] [address] MCH (RBC) [Entitic mass] 33.1 pg High 27.0-31.2 [facility] ([place]) Comment on above: Performed By: #### C BC, LIPID, ADIFF, PSA, ANEU, CMP, GFR #### [address] [address] MCHC 34.8 G/dL Normal 31.8-35.4 [facility] ([place]) Comment on above: Performed By: #### C BC, LIPID, ADIFF, PSA, ANEU, CMP, GFR #### [address] [address] MCV (RBC) [Entitic vol] 95.1 fL High 80.0-94.0 [facility] ([place]) Comment on above: Performed By: #### C BC, LIPID, ADIFF, PSA, ANEU, CMP, GFR #### [address] [address] Platelet 237 10 3/mcL Normal 130-400 [facility] ([place]) Comment on above: Performed By: #### C BC, LIPID, ADIFF, PSA, ANEU, CMP, GFR #### [address] [address] Platelet mean volume (Bld) [Entitic vol] 7.9 fL Normal 7.4-10.4 [facility] ([place]) Comment on above: Performed By: #### C BC, LIPID, ADIFF, PSA, ANEU, CMP, GFR #### [id number] RBC 4.37 10 6/mcL Normal 4.04-6.13 [facility] ([place]) Comment on above: Performed By: #### C BC, LIPID, ADIFF, PSA, ANEU, CMP, GFR #### [address] [address] WBC 6.9 10 3/mcL Normal 4.6-10.8 [facility] ([place]) Comment on above: Performed By: #### C BC, LIPID, ADIFF, PSA, ANEU, CMP, GFR #### [address] [address] CMPon 10-03-2023 Albumin Level 3.8 G/dL Normal 3.4-4.8 [facility] ([place]) Comment on above: Performed By: #### C BC, LIPID, ADIFF, PSA, ANEU, CMP, GFR #### [address] [address] Albumin/Globulin [Mass ratio] 1.3 {ratio} Normal 1.1-2.5 [facility] ([place]) Comment on above: Performed By: #### C BC, LIPID, ADIFF, PSA, ANEU, CMP, GFR #### [address] [address] ALP [Catalytic activity/Vol] 79 U/L Normal 40-135 [facility] ([place]) Comment on above: Performed By: #### C BC, LIPID, ADIFF, PSA, ANEU, CMP, GFR #### [address] [address] ALT [Catalytic activity/Vol] 29 U/L Normal 16-63 [facility] ([place]) Comment on above: Performed By: #### C BC, LIPID, ADIFF, PSA, ANEU, CMP, GFR #### [address] [address] AST [Catalytic activity/Vol] 14 U/L Normal 10-40 [facility] ([place]) Comment on above: Performed By: #### C BC, LIPID, ADIFF, PSA, ANEU, CMP, GFR #### [address] [address] Bili Total 0.9 mg/dL Normal 0.2-1.0 [facility] ([place]) Comment on above: Result Comment: Use of this assay is not recommended for patients undergoing treatment with eltrombopag due to the potential for falsely elevated results. Performed By: #### C BC, LIPID, ADIFF, PSA, ANEU, CMP, GFR #### [address] [address] BUN/Creatinine Ratio 15 ratio Normal 7-27 [facility] ([place]) Comment on above: Performed By: #### C BC, LIPID, ADIFF, PSA, ANEU, CMP, GFR #### [address] [address] Calcium [Mass/Vol] 9.0 mg/dL Normal 8.4-10.2 [facility] ([place]) Comment on above: Performed By: #### C BC, LIPID, ADIFF, PSA, ANEU, CMP, GFR #### [address] [address] Chloride [Moles/Vol] 102 mmol/L Normal 98-107 [facility] ([place]) Comment on above: Performed By: #### C BC, LIPID, ADIFF, PSA, ANEU, CMP, GFR #### [address] [address] CO2 [Moles/Vol] 27 mmol/L Normal 23-31 [facility] ([place]) Comment on above: Performed By: #### C BC, LIPID, ADIFF, PSA, ANEU, CMP, GFR #### [address] [address] Creatinine [Mass/Vol] 1.19 mg/dL Normal 0.70-1.30 [facility] ([place]) Comment on above: Performed By: #### C BC, LIPID, ADIFF, PSA, ANEU, CMP, GFR #### [address] [address] Electrolyte Balance 9.0 mEq/L Normal 4.0-15.0 [facility] ([place]) Comment on above: Performed By: #### C BC, LIPID, ADIFF, PSA, ANEU, CMP, GFR #### [address] [address] Globulin 3.0 G/dL Normal [facility] ([place]) Comment on above: Performed By: #### C BC, LIPID, ADIFF, PSA, ANEU, CMP, GFR #### [address] [address] Glucose [Mass/Vol] 132 mg/dL High 80-115 [facility] ([place]) Comment on above: Performed By: #### C BC, LIPID, ADIFF, PSA, ANEU, CMP, GFR #### [address] [address] Potassium [Moles/Vol] 5.2 mmol/L High 3.5-5.1 [facility] ([place]) Comment on above: Performed By: #### C BC, LIPID, ADIFF, PSA, ANEU, CMP, GFR #### [address] [address] Sodium [Moles/Vol] 138 mmol/L Normal 136-145 [facility] ([place]) Comment on above: Performed By: #### C BC, LIPID, ADIFF, PSA, ANEU, CMP, GFR #### [address] [address] Total Protein 6.8 G/dL Normal 6.4-8.2 [facility] ([place]) Comment on above: Performed By: #### C BC, LIPID, ADIFF, PSA, ANEU, CMP, GFR #### [address] [address] Urea nitrogen [Mass/Vol] 18 mg/dL Normal 7-18 [facility] ([place]) Comment on above: Performed By: #### C BC, LIPID, ADIFF, PSA, ANEU, CMP, GFR #### [address] [address] LIPIDon 10-03-2023 Cholesterol [Mass/Vol] 190 mg/dL Normal 0-200 [facility] ([place]) Comment on above: Result Comment: Chol esterol Reference Interval: Less than 200 Desirable 200-239 Borderline high risk 240 and above High risk Performed By: #### C BC, LIPID, ADIFF, PSA, ANEU, CMP, GFR #### [address] [address] Cholesterol in HDL [Mass/Vol] 60 mg/dL Normal 40-60 [facility] ([place]) Comment on above: Performed By: #### C BC, LIPID, ADIFF, PSA, ANEU, CMP, GFR #### [address] [address] Cholesterol in LDL [Mass/Vol] 112 mg/dL Normal 0-130 [facility] ([place]) Comment on above: Performed By: #### C BC, LIPID, ADIFF, PSA, ANEU, CMP, GFR #### [address] [place], [place] [address] Triglyceride [Mass/Vol] 88 mg/dL Normal 0-150 [facility] ([place]) Comment on above: Result Comment: Trig lyceride Reference Interval: Less than 150 Normal 150-199 Borderline high risk 200-499 High risk 500 or higher Very high risk Performed By: #### C BC, LIPID, ADIFF, PSA, ANEU, CMP, GFR #### [address] [address] PSAon 10-03-2023 Prostate Specific Antigen 1.72 ng/mL Normal 0.00-4.00 [facility] ([place]) Comment on above: Performed By: #### C BC, LIPID, ADIFF, PSA, ANEU, CMP, GFR #### [address] [address] XR CHEST 2 VIEWSon 3 XR CHEST 2 VIEWS ORIGINAL EXAMINATION: TWO XRAY VIEWS OF THE CHEST02/07/2023 9:57 am XR Chest two views COMPARISON: 04/05/2017 HISTORY: ORDERING SYSTEM PROVIDED HISTORY: Reason for Exam: persistent uri, cough, asthma, FINDINGS: No suspicious nodule, acute infiltrate, consolidation,mass, pneumothorax, pleural fluid, or vascular congestion is seen. Heart size and mediastinal contours are within normal limits for age and projection. No acute skeletal abnormality. There is minimal scarring in the left hilar region also seen previously. IMPRESSION: No acute cardiopulmonary process. Interpreted by: Ottoniel Dallas MD Preliminary Report By: Ottoniel Dallas MD Electronically signed By Ottoniel Dallas MD Dictated Date: 02/07/2023 9:55:12 PM Prelim Date: 02/07/2023 9:56:08 PM Sign Date: 02/07/2023 9:56:08 PM Ordering Provider: NARA Rivera [facility] ([place]) LABORATORYOrdered By: Maria G Wolff on 12-20-2022 Albumin DL <= 20 mg/L (U) [Mass/Vol] 1767 mcg/dL Invalid Interpretation Code AO ADM SS Albumin/Creatinine DL <= 20 mg/L (U) [Mass ratio] 18 mcg/mg Invalid Interpretation Code 0 - 30 mcg/mg AO ADM SS Creatinine (U) [Mass/Vol] 96.2 mg/dL Invalid Interpretation Code 39.0 - 259.0 mg/dL AO ADM SS LABORATORYOrdered By: Dago Ochoa on 09-06-2022 Albumin BCP dye [Mass/Vol] 4.2 G/dL Invalid Interpretation Code 3.4 - 4.8 G/dL AO ADM SS Albumin/Globulin [Mass ratio] 1.4 {ratio} Invalid Interpretation Code 1.1 - 2.5 ratio AO ADM SS ALP [Catalytic activity/Vol] 82 U/L Invalid Interpretation Code 40 - 135 U/L AO ADM SS ALT With P-5'-P [Catalytic activity/Vol] 39 U/L Invalid Interpretation Code 16 - 63 U/L AO ADM SS AST With P-5'-P [Catalytic activity/Vol] 12 U/L Invalid Interpretation Code 10 - 40 U/L AO ADM SS Bilirubin [Mass/Vol] 0.7 mg/dL Invalid Interpretation Code 0.2 - 1.0 mg/dL AO ADM SS Calcium [Mass/Vol] 9.1 mg/dL Invalid Interpretation Code 8.4 - 10.2 mg/dL AO ADM SS Chloride [Moles/Vol] 99 mmol/L Invalid Interpretation Code 98 - 107 mmol/L AO ADM SS Cholesterol [Mass/Vol] 191 mg/dL Invalid Interpretation Code 0 - 200 mg/dL AO ADM SS Cholesterol in HDL [Mass/Vol] 70 mg/dL Invalid Interpretation Code 40 - 60 mg/dL AO ADM SS Cholesterol in LDL [Mass/Vol] 110 mg/dL Invalid Interpretation Code 0 - 130 mg/dL AO ADM SS CO2 [Moles/Vol] 29 mmol/L Invalid Interpretation Code 23 - 31 mmol/L AO ADM SS Creatinine [Mass/Vol] 1.13 mg/dL Invalid Interpretation Code 0.70 - 1.30 mg/dL AO ADM SS Electrolyte Balance 7.0 mEq/L Invalid Interpretation Code 4.0 - 15.0 mEq/L AO ADM SS Globulin 3.1 G/dL Invalid Interpretation Code AO ADM SS Glucose [Mass/Vol] 202 mg/dL Invalid Interpretation Code 80 - 115 mg/dL AO ADM SS Potassium [Moles/Vol] 4.3 mmol/L Invalid Interpretation Code 3.5 - 5.1 mmol/L AO ADM SS Prostate specific Ag [Mass/Vol] 2.94 ng/mL Invalid Interpretation Code 0.00 - 4.00 ng/mL AO ADM SS Protein [Mass/Vol] 7.3 G/dL Invalid Interpretation Code 6.4 - 8.2 G/dL AO ADM SS Sodium [Moles/Vol] 135 mmol/L Invalid Interpretation Code 136 - 145 mmol/L AO ADM SS Triglyceride [Mass/Vol] 54 mg/dL Invalid Interpretation Code 0 - 150 mg/dL AO ADM SS Urea nitrogen [Mass/Vol] 14 mg/dL Invalid Interpretation Code 7 - 18 mg/dL AO ADM SS Urea nitrogen/Creatinine [Mass ratio] 12 ratio Invalid Interpretation Code 7 - 27 ratio AO ADM SS LABORATORYOrdered By: Lizbeth Mcclure on 09-06-2022 Basophil, Absolute 0.0 103/mcL Invalid Interpretation Code 0.0 - 0.2 10^3/mcL AO Workflow SS Basophils/100 WBC (Bld) 0.2 % Invalid Interpretation Code 0.0 - 2.5 % AO Workflow SS Eosinophil, Absolute 0.0 103/mcL Invalid Interpretation Code 0.0 - 0.4 10^3/mcL AO Workflow SS Eosinophils/100 WBC (Bld) 0.0 % Invalid Interpretation Code 0.0 - 7.0 % AO Workflow SS Erythrocyte distribution width (RBC) [Ratio] 12.9 % Invalid Interpretation Code 11.5 - 14.5 % AO Workflow SS Hematocrit (Bld) [Volume fraction] 42.6 % Invalid Interpretation Code 42.0 - 52.0 % AO Workflow SS Hemoglobin (Bld) [Mass/Vol] 14.6 G/dL Invalid Interpretation Code 14.0 - 18.0 G/dL AO Workflow SS Lymphocyte, Absolute 1.3 103/mcL Invalid Interpretation Code 0.8 - 3.9 10^3/mcL AO Workflow SS Lymphocytes/100 WBC (Bld) 13.7 % Invalid Interpretation Code 10.0 - 50.0 % AO Workflow SS MCH (RBC) [Entitic mass] 32.3 pg Invalid Interpretation Code 27.0 - 31.2 pg AO Workflow SS MCHC 34.3 G/dL Invalid Interpretation Code 31.8 - 35.4 G/dL AO Workflow SS MCV (RBC) [Entitic vol] 94.2 fL Invalid Interpretation Code 80.0 - 94.0 fL AO Workflow SS Monocyte, Absolute 0.5 103/mcL Invalid Interpretation Code 0.2 - 1.0 10^3/mcL AO Workflow SS Monocytes/100 WBC (Bld) 5.8 % Invalid Interpretation Code 1.7 - 13.0 % AO Workflow SS Neutrophil, Absolute 7.6 103/mcL Invalid Interpretation Code 2.9 - 6.2 10^3/mcL AO Workflow SS Neutrophils/100 WBC (Bld) 80.3 % Invalid Interpretation Code 37.0 - 80.0 % AO Workflow SS Platelet mean volume (Bld) [Entitic vol] 8.0 fL Invalid Interpretation Code 7.4 - 10.4 fL AO Workflow SS Platelets (Bld) [#/Vol] 295 103/mcL Invalid Interpretation Code 130 - 400 10^3/mcL AO Workflow SS RBC (Bld) [#/Vol] 4.52 106/mcL Invalid Interpretation Code 4.04 - 6.13 10^6/mcL AO Workflow SS WBC (Bld) [#/Vol] 9.5 103/mcL Invalid Interpretation Code 4.6 - 10.8 10^3/mcL AO Workflow SS LABORATORYOrdered By: SYSTEM SYSTEM on 09-06-2022 GFR 80 ml/min/1.73sqm Invalid Interpretation Code AO Chemistry S GFR Non- 66 ml/min/1.73sqm Invalid Interpretation Code AO Chemistry S LABORATORYOrdered By: Ioana Fernando Davis on 11-27-2021 Glucose [Mass/Vol] 137 mg/dL Invalid Interpretation Code 70 - 110 mg/dL [facility] Work Phone: Venous Duplex Lower Extremit yon 07-19-2017 Venous Duplex Lower Extremity [facility] [address] [place], [place] [address]Gjnmhv Duplex US, Qgjpltoyrm26/20/17 1336MR#: [id number] Acct: [id number]: DIONICIO FRASER Rep #: [id number]: 1960 57 From: Bridger Chavis MDAttending Dr: Angela Gomez MD Status: REG CLIOrdering Dr: Angela Gomez MD Date: 07/19/17Location: CVS Sex: M CAdmitted:Reason For Study: PAINRIGHT LEFTCFV is compressible, spontaneous, phasic, GSV is normal.competent and demonstrates normal CFV is compressible, spontaneous, phasic,augmentation. competent, and demonstrates normalProcedure augmentation.Exam performed in department. FV is compressible, spontaneous, phasic,A preliminary report was called and/or faxed competent and demonstrates normalto DR Pawel GOMEZ. augmentation.POP V is compressible, spontaneous,phasic,compet ent and demonstrates normalaugmentation.T/P Trunk is compressible.PTV is compressible.LT PerV is compressible.Interpretati on SummaryDeep veins of the left lower extremity are patent and compressible segmentally. There is noevidence of left lower extremity deep vein thrombosis. Valvular competence appears intactwithinthe proximal deep venous system on the left . The left greater saphenous vein appears patentandcompressible segmentally. Ordering Physician: Angela GomezReferring Physician: KATIE ENGLEPerformed By: Vicki Bolton [facility], RVT 07/19/17 1934Date Bridger Chavis MDCC: Katie Engle MD; Angela Gomez MD Date Dictated: 07/19/17 1336Date Transcribed: 07/19/171933Transcriptionist:Brenna cotton [facility] TOTAL KNEE REPLACEMENTon TOTAL KNEE REPLACEMENT Patient: DIONICIO FRASER : 1960 (57/M) Acct Num: [id number] Phys: Angela Gomez MD Unit Num: [id number] Loc: LABSPEC Specimen: [id number] Received: 06/14/17 - 1620 Spec Type: TOTAL KNEE TISSUES TISSUES: GROSS DESCRIPTION Received is one container designated bone and soft tissue left knee." The specimen consists of multiple fragments of turpin-yellow bone measuring in aggregate 12 x 12 x 4 cm. A piece of fibrocartilaginous tissue is noted measuring 3.5 x 2 x 1 cm. A number of bony fragments contain articular surfacesconsistent with tibial plateau and femoral condyle and displaying prominent osteophyte formation, eburnation, and bone erosion. [facility] sections aresubmitted in two cassettes as follows: 1 - soft tissue, 2 - bone after decalcification. / SJ:jesus 06/17/17 TC:5 CPT: 75934, 72970 HEADER OPERATION: Left total knee arthroplasty PRE-OP DIAGNOSIS: Left knee progressive primary osteoarthritis TISSUE SUBMITTED: Bone left knee MICROSCOPIC DESCRIPTION Slides are reviewed. MICROSCOPIC DIAGNOSIS Bone and soft tissue of left knee, total knee resection: Severe degenerative joint disease. AM:jesus 06/20/17 Signed Carlos Florencia 06/20/17 Normal [facility] Comment on above: Performed By: #### P KNEE ####[facility] [id number] [facility] [place], [address] Extremity Lower without Cont raon 05-07-2017 Extremity Lower without Contra [facility]ITAL[facility] [address] [place], [place] [address]Oppnyfoms Lower without ContraMR#: [id number] Acct: [id number]: DIONICIO FRASER Rep #: [id number]: 1960 M 56 From: Shemar Lewis MDPCP: Katie Engle MD Status: REG CLIStudy: Extremity Lower without Contra Date of Exam: 05/07/17Exam# [id number] Ordering Dr: Angela Gomez MDSTUDY: CONFORMIS PROTOCOL INCLUDING THE LEFT KNEE, LEFT HIP AND LEFT ANKLEFOR LEFT KNEE REPLACEMENT.REASON FOR EXAM: Male, 56 years old. Left knee replacement.RADIATION DOSAGE (If Supplied By Facility): CTDIvol = ( 41.52 ) mGy, DLP =( 1957.74 ) mGycm. Individualized dose optimization techniques were usedfor this CT.?TECHNIQUE: Axial images involving the left hip, left ankle and left kneewere obtained. Coronal and sagittal reconstruction of the left knee jointwere obtained as well.COMPARISON: None. FINDINGS:L eft knee:Medial compartment:There is a marked degree of joint space narrowing with mild degree of spurformation. This is more prominent anteriorly and medially. Theintercondylar notch is unremarkable. There is a 4.6 mm x 4 mm focalsclerotic density along the medial aspect of the medial femoral condyleposteriorly. This most likely represents a bone.Lateral compartment:Mild degree of joint space narrowing.Patellofemoral compartment.Mild degree of vascular joint space narrowing.HipFew slices obtained through the hip joints demonstrate minimal joint spacenarrowing.AnkleThe ankle joint is unremarkable. 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 COMPARISON: Chest x-ray on December 18, 2016. PA and lateral radiographs of the chest were obtained. The heart is normal in size and configuration. The mediastinum and hilar structures are normal. The lungs are clear, and the vascularity is normal. The pleural surfaces, diaphragms, and bony structures are unremarkable. IMPRESSION: Normal chest. Interpreted By: Jono Saldivar MDPreliminary Report By: Jono Saldivar MDElectronically Signed By: Jono Saldivar MD Dictated Date: 04/06/2017 7:55:13 AM Prelim Date: 04/06/2017 7:55:13 AM Sign Date: 04/06/2017 7:56:21 AM Normal [facility] Vital Signs Date Time Vital Sign Value Performing Clinician Sistori sanchez 01-25-2025 13:20-0400 Diastolic Blood Pressure Non-Invasive 77 mm[Hg] ANASTASIA ABEL DO [facility] 01-25-2025 13:20-0400 Heart rate 78 /min ANASTASIA ABEL DO [facility] 01-25-2025 13:20-0400 Respiratory rate 18 /min ANASTASIA ABEL DO [facility] 01-25-2025 13:20-0400 Systolic Blood Pressure Non-Invasive 125 mm[Hg] ANASTASIA ABEL DO [facility] 01-25-2025 13:14-0400 Body temperature 97.88 [degF] ANASTASIA ABEL DO [facility] 01-25-2025 13:14-0400 Diastolic Blood Pressure Non-Invasive 74 mm[Hg] ANASTASIA ABEL DO [facility] 01-25-2025 13:14-0400 Heart rate 88 /min ANASTASIA ABEL DO [facility] 01-25-2025 13:14-0400 Respiratory rate 18 /min ANASTASIA ABEL DO [facility] 01-25-2025 13:14-0400 Systolic Blood Pressure Non-Invasive 108 mm[Hg] ANASTASIA ABEL DO [facility] 01-25-2025 13:05-0400 Diastolic Blood Pressure Non-Invasive 69 mm[Hg] ANASTASIA ABEL DO [facility] 01-25-2025 13:05-0400 Heart rate 79 /min ANASTASIA ABEL DO [facility] 01-25-2025 13:05-0400 Respiratory Rate - Anes 22 br/min ANASTASIA ABEL DO [facility] 01-25-2025 13:05-0400 Systolic Blood Pressure Non-Invasive 114 mm[Hg] ANASTASIA ABEL DO [facility] 01-25-2025 13:00-0400 Respiratory Rate - Anes 20 br/min ANASTASIA ABEL DO [facility] 01-25-2025 12:55-0400 Respiratory Rate - Anes 16 br/min ANASTASIA ABEL DO [facility] 01-25-2025 12:32-0400 Body height 172.7 cm ANASTASIA ABEL DO [facility] 01-25-2025 12:32-0400 Body weight 90 kg ANASTASIA ABEL DO [facility] 01-25-2025 12:32-0400 Body weight 30.18 kg/m2 ANASTASIA ABEL DO [facility] 01-25-2025 12:22-0400 Body height 172.7 cm ANASTASIA ABEL DO [facility] 01-25-2025 12:22-0400 Body temperature 97.52 [degF] ANASTASIA ABEL DO [facility] 01-25-2025 12:22-0400 Body weight 90 kg ANASTASIA ABEL DO [facility] 01-25-2025 12:22-0400 Heart rate 72 /min ANASTASIA ABEL DO [facility] 01-25-2025 12:22-0400 Respiratory rate 15 /min ANASTASIA ABEL DO [facility] 11-27-2021 13:20-0500 Diastolic Blood Pressure NBP 84 1 ESTEPHANIA HANCOCK MD [facility] 11-27-2021 13:20-0500 Heart rate 79 /min ESTEPHANIA HANCOCK MD [facility] 11-27-2021 13:20-0500 Systolic Blood Pressure NBP 127 1 ESTEPHANIA HANCOCK MD [facility] 11-27-2021 13:15-0500 Diastolic Blood Pressure NBP 84 1 ESTEPHANIA HANCOCK MD [facility] 11-27-2021 13:15-0500 Heart rate 81 /min ESTEPHANIA HANCOCK MD [facility] 11-27-2021 13:15-0500 Systolic Blood Pressure NBP 123 1 ESTEPHANIA HANCOCK MD [facility] 11-27-2021 13:06-0500 Diastolic Blood Pressure NBP 85 1 ESTEPHANIA HANCOCK MD [facility] 11-27-2021 13:06-0500 Heart rate 84 /min ESTEPHANIA HANCOCK MD [facility] 11-27-2021 13:06-0500 Systolic Blood Pressure NBP 112 1 ESTEPHANIA HANCOCK MD [facility] 11-27-2021 12:54-0500 Body temperature 97.16 [degF] ESTEPHANIA HANCOCK MD [facility] 11-27-2021 12:45-0500 Respiratory rate 22 /min ESTEPHANIA HANCOCK MD [facility] 11-27-2021 12:40-0500 Respiratory rate 25 /min ESTEPHANIA HANCOCK MD [facility] 11-27-2021 12:35-0500 Respiratory rate 17 /min ESTEPHANIA HANCOCK MD [facility] 11-27-2021 11:04-0500 Body height 172.6 cm ESTEPHANIA HANCOCK MD [facility] 11-27-2021 10:41-0500 Body height 172.6 cm ESTEPHANIA HANCOCK MD [facility] 11-27-2021 10:41-0500 Body temperature 97.88 [degF] ESTEPHANIA HANCOCK MD [facility] 11-27-2021 10:41-0500 Body weight 115.9 kg ESTEPHANIA HANCOCK MD [facility] 11-27-2021 10:41-0500 Diastolic blood pressure 76 mm[Hg] ESTEPHANIA HANCOCK MD [facility] 11-27-2021 10:41-0500 Heart rate 95 /min ESTEPHANIA HANCOCK MD [facility] 11-27-2021 10:41-0500 Systolic blood pressure 155 mm[Hg] ESTEPHANIA HANCOCK MD [facility] Encounters Encounter Date Encounter Type Care Provider Facility Start: 01-25-2025 End: 01-25-2025 ambulatory ANASTASIA ROMAN Facility:[facility] Start: 01-25-2025 End: 01-25-2025 Minor Procedure ANASTASIA ROMAN DO [facility] Start: 11-24-2024 End: 11-24-[address] [employer] Facility:[facility] Start: 11-24-2024 End: 11-24-2024 Patient encounter procedure [address] [employer]NA[employer] ASSOCIATE [facility] Start: 01-09-2024 End: 01-14-[address] [employer] MANA[employer] ASS[employer]IATE Facility:[facility] Start: 01-09-2024 End: 01-13-2024 Outreach Lab [address] [employer] [facility] Start: 10-03-2023 End: 10-04-[address] [employer] MANAGEMENT ASS[employer]IATE Facility:[facility] Start: 02-07-2023 End: 02-08-[address] [employer] MANAGEMENT ASS[employer]IATE Facility:[facility] Start: 02-07-2023 End: 02-07-2023 Patient encounter procedure [address] [employer] MANA[employer] ASSOCIATE [facility] Start: 12-20-2022 End: 12-24-2022 Outreach Lab [address] [employer] MANA[employer]ATE [facility] Start: 09-06-2022 End: 09-06-2022 Patient encounter procedure [address] [employer]NA[employer] [facility] Start: 11-27-2021 End: 11-27-2021 Minor Procedure ESTEPHANIA HANCOCK MD [facility] Start: 12-06-2020 End: 12-06-2020 Patient encounter procedure IOANA Mera [facility] Start: 07-19-2017 Ambulatory [facility] Facility: [facility] Start: 06-14-2017 Ambulatory [facility] Facility: [facility] Start: 05-07-2017 Ambulatory [facility] Facility: [facility] Start: 04-10-2017 End: 04-11-2017 Ambulatory [facility] Facility:[facility] Start: 04-05-2017 End: 04-06-2017 Ambulatory [facility] Facility:[facility] Start: 04-03-2017 Ambulatory [facility] Facility: [facility] Start: 03-27-2017 End: 03-28-2017 Ambulatory [facility] Facility:[facility] Procedures Date Procedure Procedure Detail Performing Clinician Start: 09-30-2016 Total knee replacement ESTEPHANIA HANCOCK MD Comment on above: Celina Start: 02-22-2016 Cardiac catheterization ESTEPHANIA HANCOCK MD Comment on above: Dr. Perez Start: 11-29-2015 Cardiovascular stres s testing ESTEPHANIA HANCOCK MD Comment on above: Daya Start: 10-28-2015 Hernia repair ESTEPHANIA Orourke MD Comment on above: Umbilical w/mesh-Dr. 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) ESTEPHANIA HANCOCK MD Extraction of wisdom tooth D KIRSTEN HANCOCK MD Insertion of pleural tube drain ESTEPHANIA HANCOCK MD Comment on above: left Lumpectomy of breast ESTEPHANIA TARANGO MD Comment on above: left Septoplasty/submucou s resecj w/wo cartilage grf ESTEPHANIA HANCOCK MD Tooth and periodonti um operation ESTEPHANIA HANCOCK MD Immunizations Immunization Date Immunization Notes Care Provider [facility] 07-14-2024 influenza virus vacc ine, unspecified formulation [facility] [address] [facility] [facility] 06-21-2023 influenza virus vacc ine, unspecified formulation [facility] [address] [employer] [facility] 06-21-2023 RSV vaccine preF3, recombinant [facility] [address] [employer] [facility] 07-20-2022 influenza virus vacc ine, unspecified formulation [facility] [address] [employer] [facility] 01-10-2022 pneumococcal 20-fiordaliza nt conjugate vaccine [facility] [address] [employer] [facility] 09-20-2021 influenza virus vacc ine, unspecified formulation ESTEPHANIA HANCOCK MD [facility] 09-20-2021 SARS-CoV-2 mRNA (tozinameran) vaccine ESTEPHANIA HANCOCK MD [facility] 12-06-2020 SARS-CoV-2 (COVID-19 ) Ad26 vaccine, recombinant ESTEPHANIA HANCOCK MD [facility] 07-15-2020 influenza virus vacc ine, unspecified formulation ESTEPHANIA HANCOCK MD [facility] 07-15-2020 pneumococcal polysaccharide vaccine, 23 valent ESTEPHANIA HANCOCK MD [facility] 07-23-2019 influenza virus vacc ine, unspecified formulation ESTEPHANIA HANCOCK MD [facility] 07-23-2019 zoster vaccine recombinant ESTEPHANIA HANCOCK MD [facility] 02-27-2019 zoster vaccine recombinant [address] [employer]OCIATE [facility] 02-27-2019 zoster vaccine, live ESTEPHANIA TARANGO MD [facility] 12-13-2018 tetanus toxoid, redu malia diphtheria toxoid, and acellular pertussis vaccine, adsorbed ESTEPHANIA HANCOCK MD [facility] 06-13-2018 influenza virus vacc ine, unspecified formulation ESTEPHANIA HANCOCK MD [facility] Comment on above: Result Comment: [05/31] Quad 05-15-2017 influenza virus vacc ine, unspecified formulation ESTEPHANIA HANCOCK MD [facility] 08-06-2016 influenza virus vacc ine, unspecified formulation ESTEPHANIA HANCOCK MD [facility] 08-08-2015 influenza virus vacc ine, unspecified formulation ESTEPHANIA HANCOCK MD [facility] 08-06-2014 influenza virus vacc ine, unspecified formulation ESTEPHANIA HANCOCK MD [facility] 08-04-2013 influenza virus vacc ine, unspecified formulation ESTEPHANIA HANCOCK MD [facility] 08-04-2013 pneumococcal polysaccharide vaccine, 23 valent ESTEPHANIA HANCOCK MD [facility] 08-05-2012 influenza virus vacc ine, unspecified formulation ESTEPHANIA HANCOCK MD [facility] Payers Date Payer Category Payer Unknown [id number] 2024 Unknown [id number] 2023 Unknown [id number] 2013 Unknown [id number] 1960 Unknown [id number] 2.16.8 [id number] 1960 Unknown [id number] 2.16.8 [id number] 1960 Unknown [id number] 2.16.8 [id number] 1960 Unknown [id number] 2.16.8 [id number] 1960 Unknown [id number] 2.16.8 [id number] 1960 Unknown [id number] 2.16.84 [id number] Unknown [id number] Social History Date Type Detail Facility Start: 06-15-2019 End: 01-01-2025 Ex-smoker (finding) [facility] Comment on above: Quit chew 04/06 Only smoked in high school. Quit chew 06/02/2008. Sex Assigned At Male [facility] Start: 12-03-2019 Sex Male (finding) [facility] Functional Status Date Assessment Result Facility 01-25-2025 Functional Status Maintained [facility] Mental Status Date Assessment Result Facility 01-25-2025 Mental Status Oriented x 4 [facility] 01-25-2025 Mental Status [facility] Clinical Notes 11-27-2021 to 01-25-2025 Note Date & Type Note Facility 01-25-2025 Hospital Discharg e instructions Patient Education 01/25/2025 13:17:12 Monitored Anesthesia Care, Care After Monitored Anesthesia Care, Care After These instructions provide you with information about caring for yourself after your procedure. Your health care provider may also give you more specific instructions. Your treatment has been planned according to current medical practices, but problems sometimes occur. Call your health care provider if you have any problems or questions after your procedure. What can I expect after the procedure? After your procedure, you may: Feel sleepy for several hours. Feel clumsy and have poor balance for several hours. Feel forgetful about what happened after the procedure. Have poor judgment for several hours. Feel nauseous or vomit. Have a sore throat if you had a breathing tube during the procedure. Follow these instructions at home: For at least 24 hours after the procedure: Have a responsible adult stay with you. It is important to have someone help care for you until you are awake and alert. Rest as needed. Do not: ?Participate in activities in which you could fall or become injured. ?Drive. ?Use heavy machinery. ?Drink alcohol. ?Take sleeping pills or medicines that cause drowsiness. ?Make important decisions or sign legal documents. ?Take care of children on your own. Eating and drinking Follow the diet that is recommended by your health care provider. If you vomit, drink water, juice, or soup when you can drink without vomiting. Make sure you have little or no nausea before eating solid foods. General instructions Take vqaw-bqc-yinvubw and prescription medicines only as told by your health care provider. If you have sleep apnea, surgery and certain medicines can increase your risk for breathing problems. Follow instructions from your health care provider about wearing your sleep device: ?Anytime you are sleeping, including during daytime naps. ?While taking prescription pain medicines, sleeping medicines, or medicines that make you drowsy. If you smoke, do not smoke without supervision. Keep all follow-up visits as told by your health care provider. This is important. Contact a health care provider if: You keep feeling nauseous or you keep vomiting. You feel light-headed. You develop a rash. You have a fever. Get help right away if: You have trouble breathing. Summary For several hours after your procedure, you may feel sleepy and have poor judgment. Have a responsible adult stay with you for at least 24 hours or until you are awake and alert. This information is not intended to replace advice given to you by your health care provider. Make sure you discuss any questions you have with your health care provider. Document Released: 01/06/2017 Document Revised: 12/15/2018 Document Reviewed: 01/06/2017 [employer] Patient Education 2020 [employer] 01/25/2025 13:17:10 Colonoscopy, Adult, Care After Colonoscopy, Adult, Care After This sheet gives you information about how to care for yourself after your procedure. Your health care provider may also give you more specific instructions. If you have problems or questions, contact your health care provider. What can I expect after the procedure? After the procedure, it is common to have: A small amount of blood in your stool for 24 hours after the procedure. Some gas. Mild abdominal cramping or bloating. Follow these instructions at home: General instructions For the first 24 hours after the procedure: ?Do not drive or use machinery. ?Do not sign important documents. ?Do not drink alcohol. ?Do your regular daily activities at a slower pace than normal. ?Eat soft, cnbm-ao-smskrl foods. Take rqhu-try-yinjhrg or prescription medicines only as told by your health care provider. Relieving cramping and bloating Try walking around when you have cramps or feel bloated. Apply heat to your abdomen as told by your health care provider. Use a heat source that your health care provider recommends, such as a moist heat pack or a heating pad. ?Place a towel between your skin and the heat source. ?Leave the heat on for 20 30 minutes. ?Remove the heat if your skin turns bright red. This is especially important if you are unable to feel pain, heat, or cold. You may have a greater risk of getting burned. Eating and drinking Drink enough fluid to keep your urine pale yellow. Resume your normal diet as instructed by your health care provider. Avoid heavy or fried foods that are hard to digest. Avoid drinking alcohol for as long as instructed by your health care provider. Contact a health care provider if: You have blood in your stool 2 3 days after the procedure. Get help right away if: You have more than a small spotting of blood in your stool. You pass large blood clots in your stool. Your abdomen is swollen. You have nausea or vomiting. You have a fever. You have increasing abdominal pain that is not relieved with medicine. Summary After the procedure, it is common to have a small amount of blood in your stool. You may also have mild abdominal cramping and bloating. For the first 24 hours after the procedure, do not drive or use machinery, sign important documents, or drink alcohol. Contact your health care provider if you have a lot of blood in your stool, nausea or vomiting, a fever, or increased abdominal pain. This information is not intended to replace advice given to you by your health care provider. Make sure you discuss any questions you have with your health care provider. Document Released: 04/30/2005 Document Revised: 07/09/2018 Document Reviewed: 11/27/2016 [employer] Patient Education Purpose Global Follow Up Care 01/14/2025 08:14:44 With:ANASTASIA ROMAN DO, Clinical Gastroenterology Address: [address] [place] [phone] When:Within 5 Year(s) With:NARA PIPER [facility] Address: [address] [facility] [place] [phone] When: Unknown [facility] 01-25-2025 Evaluation + Plan note Extrac aleyda from: Title:Clinical Document Author:ANASTASIA ROMAN ate:01/25/25 [place] ADMISSION HISTORY AN D PHYSICIAL CHIEF COMPLAINT: Colorectal cancer screening, high risk HISTORY OF PRESENT ILLNESS: Personal history of colon polyps REVIEW OF SYSTEMS: Constitutional: denies weight loss Cardiovascular:denies chest pain, palpitations Respiratory:denies shortness of breath Gastrointestinal:no abd pain Musculoskeletal: no arthralgias Skin: no rashes ACTIVE PROBLEMS: (19) Arthritis (4346448) Asthma ([id number]) Chronic 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 (1921662073) CKD (chronic kidney disease), stage II (6965753998) Corneal abrasion (999574113) COVID (1726424377) Depression ([id number]) Diabetic eye exam (030494146) Eustachian tube disorder (318777566) Hypercholesteremia ([id number]) Migraine (28404204) Pneumothorax (69435139) Screening for colon cancer (301351295) Screening for diabetic peripheral neuropathy (401951058) Screening for prostate cancer (027714023) Sleep apnea (924377435) Type 2 diabetes mellitus (376009767) Type 2 diabetes mellitus with peripheral neuropathy (169199835) Well adult exam (246342086) MEDICATIONS: Active Inpt Meds: None Active PRN Meds: None One Time Meds: None Active IV Meds: None ALLERGIES: (1) coconut FAMILY HISTORY: SOCIAL HISTORY: PHYSICAL EXAM: VITALS: No Data Available 24 Hr Tmax: No Data Available 36 Hr Tmax: No Data Available Vital Signs are the last 5 in the past 48 hours. Weights display the last 5 within 7 days. Initial Wt: No Data Available Current Wt: No Data Available physical exam alert and oriented cardio; regular without murmur pulm; clear abd; soft, nontender LABS: No 36hr Lab Data DIAGNOSTICS: IMPRESSION: Personal history of colon polyps PLAN: Colonoscopy as discussed in office Future Appointments Appointment Date:06/01/2025 07:30:00 AM Scheduled Provider:NARA PIPER Location:[facility] Appointment Type: Wellness Annual [facility] 04-28-2025 Note Discharge Instructions Thank you for allowing [facility] to assist you with your healthcare needs. The following is importantdischarge information regarding your hospital visit. What to do next Instructions From Your Doctor Repeat colonoscopy 5 years Scheduled Follow-Up Appointments Appointment Type When With Where Contact Information [facility] Annual 06/01/2025 07:30 AM EDT NARA PIPER [address] [phone] Confirmed Follow Up Appointments Follow Up with ANASTASIA ROMAN DO, Clinical Gastroenterology When:In 5 years Where:[address] [place] [address] Gastroenterology [place], [place] [phone] Follow Up with NARA PIPER Where:[address] [place] [phone] The Following Activity and Diet Have Been Ordered for You Discharge Activity - Ordered -- Driving Restricted, No driving until tomorrow, 01/25/25 12:23:00 EDT Discharge Return to Work, School, or Sports (Discharge "Return to" status) - Ordered -- May return to: work, 01/25/25 12:23:00 EDT Discharge Diet - Ordered -- Type of Diet: Regular Diet, 01/25/25 12:23:00 EDT Allergies coconut Vomiting Medications Please ask your primary doctor or pharmacist before taking any other medication not listed, including over the counter drugs, herbal medications, vitamins and or supplements as they may interact withyour home medications. What How Much When Why Instructions Last Dose Unchanged acetaminophen (Tylenol Extra Strength 500 mg oral tablet) 2 tab(s) by mouth Every 4 hours as needed for as needed for pain Unchanged albuterol (Albuterol (Eqv-ProAir HFA) 90 mcg/ inh inhalation aerosol) 1 puff(s) by inhalation Every 6 hours Asthma Unchanged albuterol (albuterol 2.5 mg/ 3 mL (0.083%) inhalation solution) 3 Milliliter by inhalation Every 6 hours as needed for as needed for wheezing Unchanged aspirin (aspirin 81 mg oral delayed release tablet) 1 tab(s) by mouth Once a day Unchanged azelastine nasal (azelastine 137 mcg/ inh (0.1%) nasal spray) 1 spray(s) each nostril Two (2) times a day as needed for as needed for allergy symptoms Unchanged azelastine ophthalmic (azelastine 0.05% ophthalmic solution) Unchanged cyclobenzaprine (cyclobenzaprine 10 mg oral tablet) 1 tab(s) by mouth Three (3) times a day as needed for for spasm Unchanged diphenhydrAMINE (Benadryl 25 mg oral tablet) 1 tab(s) by mouth Once a day as needed for for allergy symptoms Unchanged eletriptan (eletriptan 40 mg oral tablet) 1 tab(s) by mouth Every day as needed for for migraine headache may repeat dose once in 2 hours Unchanged fluticasone nasal (Flonase 50 mcg/ inh nasal spray) 1 spray(s) in the nose Two (2) times a day Unchanged fluticasone-salmeterol (Advair Diskus 250 mcg-50 mcg inhalation powder) 1 puff(s) by inhalation Two (2) times a day Unchanged lisinopril (lisinopril 5 mg oral tablet) 0.5 tab(s) by mouth Once a day Type 2 diabetes mellitus Duration: 100 Days Unchanged loratadine (loratadine 5 mg oral tablet, disintegrating) 1 tab(s) by mouth Once a day NOT Disintegrating Unchanged metFORMIN (MetFORMIN (Eqv-Glucophage XR) 500 mg oral tablet, EXTENDED RELEASE) 1 tab(s) by mouth Two (2) times a day Duration: 100 Days Unchanged montelukast (Singulair 10 mg oral tablet) 1 tab(s) by mouth Once a day (in the evening) Unchanged nortriptyline (nortriptyline 75 mg oral capsule) 1 cap by mouth Daily at bedtime Unchanged oxymetazoline nasal (Afrin 0.05% nasal spray) 1 spray(s) Intranasal Two (2) times a day Unchanged polyethylene glycol 3350 with electrolytes (PEG-3350 with Electrolytes (Eqv-GoLYTELY) oral powder for reconstitution) See instructions Take as directed starting 1 day before colonoscopy. Follow instructions as provided by your GI provider at [facility]. Unchanged sertraline (sertraline 100 mg oral tablet) 1 tab(s) by mouth Once a day Depression Duration: 100 Days Unchanged simvastatin (Zocor 80 mg oral tablet) 1 tab(s) by mouth Daily at bedtime Type 2 diabetes mellitus Duration: 100 Days Unchanged topiramate (topiramate 50 mg oral tablet) 1 tab(s) by mouth Once a day Please take this list to your next doctor s visit. Bring all medications you take, including over the counter medications, herbals and other supplements with you to your doctor s visit. Patients and families are reminded to discard old lists and to update any records with all medication providers or retail pharmacies. Education Materials Monitored Anesthesia Care, Care After These instructions provide you with information about caring for yourself after your procedure. Your health care provider may also give you more specific instructions. Your treatment has been plannedaccording to current medical practices, but problems sometimes occur. Call your health care provider if you have any problems or questions after your procedure. What can I expect after the procedure? After your procedure, you may: Feel sleepy for several hours. Feel clumsy and have poor balance for several hours. Feel forgetful about what happened after the procedure. Have poor judgment for several hours. Feel nauseous or vomit. Have a sore throat if you had a breathing tube during the procedure. Follow these instructions at home: For at least 24 hours after the procedure: Have a responsible adult stay with you. It is important to have someone help care for you until youare awake and alert. Rest as needed. Do not: ? Participate in activities in which you could fall or become injured. ? Drive. ? Use heavy machinery. ? Drink alcohol. ? Take sleeping pills or medicines that cause drowsiness. ? Make important decisions or sign legal documents. ? Take care of children on your own. Eating and drinking Follow the diet that is recommended by your health care provider. If you vomit, drink water, juice, or soup when you can drink without vomiting. Make sure you have little or no nausea before eating solid foods. General instructions Take awvh-bza-ynzakel and prescription medicines only as told by your health care provider. If you have sleep apnea, surgery and certain medicines can increase your risk for breathing problems. Follow instructions from your health care provider about wearing your sleep device: ? Anytime you are sleeping, including during daytime naps. ? While taking prescription pain medicines, sleeping medicines, or medicines that make you drowsy. If you smoke, do not smoke without supervision. Keep all follow-up visits as told by your health care provider. This is important. Contact a health care provider if: You keep feeling nauseous or you keep vomiting. You feel light-headed. You develop a rash. You have a fever. Get help right away if: You have trouble breathing. Summary For several hours after your procedure, you may feel sleepy and have poor judgment. Have a responsible adult stay with you for at least 24 hours or until you are awake and alert. This information is not intended to replace advice given to you by your health care provider. Make sure you discuss any questions you have with your health care provider. Document Released: 01/06/2017 Document Revised: 12/15/2018 Document Reviewed: 01/06/2017 [employer] Patient Education 2020 [employer] Colonoscopy, Adult, Care After This sheet gives you information about how to care for yourself after your procedure. Your health care provider may also give you more specific instructions. If you have problems or questions, contact your health care provider. What can I expect after the procedure? After the procedure, it is common to have: A small amount of blood in your stool for 24 hours after the procedure. Some gas. Mild abdominal cramping or bloating. Follow these instructions at home: General instructions For the first 24 hours after the procedure: ? Do not drive or use machinery. ? Do not sign important documents. ? Do not drink alcohol. ? Do your regular daily activities at a slower pace than normal. ? Eat soft, byhz-qi-zwccsd foods. Take qmpy-emr-gbvvegr or prescription medicines only as told by your health care provider. Relieving cramping and bloating Try walking around when you have cramps or feel bloated. Apply heat to your abdomen as told by your health care provider. Use a heat source that your healthcare provider recommends, such as a moist heat pack or a heating pad. ? Place a towel between your skin and the heat source. ? Leave the heat on for 20 30 minutes. ? Remove the heat if your skin turns bright red. This is especially important if you are unable to feel pain, heat, or cold. You may have a greater risk of getting burned. Eating and drinking Drink enough fluid to keep your urine pale yellow. Resume your normal diet as instructed by your health care provider. Avoid heavy or fried foods thatare hard to digest. Avoid drinking alcohol for as long as instructed by your health care provider. Contact a health care provider if: You have blood in your stool 2 3 days after the procedure. Get help right away if: You have more than a small spotting of blood in your stool. You pass large blood clots in your stool. Your abdomen is swollen. You have nausea or vomiting. You have a fever. You have increasing abdominal pain that is not relieved with medicine. Summary After the procedure, it is common to have a small amount of blood in your stool. You may also have mild abdominal cramping and bloating. For the first 24 hours after the procedure, do not drive or use machinery, sign important documents, or drink alcohol. Contact your health care provider if you have a lot of blood in your stool, nausea or vomiting, a fever, or increased abdominal pain. This information is not intended to replace advice given to you by your health care provider. Make sure you discuss any questions you have with your health care provider. Document Released: 04/30/2005 Document Revised: 07/09/2018 Document Reviewed: 11/27/2016 [employer] Patient Education 2020 [employer] Additional Information VACCINATE! IT SAVES LIVES! Members of the community who have not yet received the COVID-19 vaccine and would like to receive it can visit one of [facility] vaccine clinics. There are many vaccine clinic locations within the [facility]. For locations and available times, please visit https://gettheshot.coronavirus.[place].gov/. It is important to note that some COVID mobile vaccine clinics are held outdoors and may be canceled in rainy or stormy conditions. To learn more about pediatric vaccinations (ages 5-11), we invite you to visit the [employer] [facility] webpage. https://www.[employer].org/pages/2156-Bhkvc-Vvasfyblivy-Ufnlskczdr-Kcvbm-Ppx stions.htmlTo learn more about the COVID-19 vaccine, we invite you to visit the CDC website for a list of frequently asked questions.https://www.cdc.gov/coronavirus/2019-ncov/vaccines/faq.html [employer] Patient Portal Access Instructions: Stay connected with your healthcare team and access your personal medical information anytime with the [employer] Patient Portal. Please follow the directions below to create your [employer] account: 1.Access the email account you provided upon registration to the hospital/physician office.2.Look for an invitation email from [facility].3.Open the email and access the invitation link: AcceptInvitation to [employer].4.Fill in the required de la fuente to create your account. To access your account, visit [facility]. Click the blue button labeled "Access Patient Portal" and then log in with the username and password that you created in the steps above. You will be able to view your test results, lab results, a summary of your visits, upcoming appointments and more. There is also a convenient messaging option where you can send secure messages to your p rovider. In addition, you will have the ability to download any documents or summaries to your computer and/or send the information securely to a physician. Remember that your healthcare information is confidential, so carefully consider who you will allowto register on the [employer] Patient Portal for access to your information. You can also access the [employer] Patient Portal on the [facility] janee. Simply click on "Patient Portal" and then log into your account. If you would like to receive a full copy of your medical records, please contact the [facility] Medical Records Department by calling [phone], Saturday through Saturday between 8 a.m. and 4:30 p.m. HOW TO SAFELY DISPOSE OF PRESCRIPTION MEDICATIONS Please use one of the following methods to safely dispose of your unused medications. 1.Use a drug disposal kit: the drug disposal pouch allows you to safely discard your old and unuseddrugs. Ask your nurse to give you one when you are discharged.2.Visit a local take-back location: Many local pharmacies and police departments have programs that collect old and unwanted prescriptiondrugs. Call your local pharmacy or go to http://[employer]/4P7Ra1c to find one close to you.3.Make use of household items: Use cat litter or old coffee grounds to dispose medications if other options arenot available. Mix your drugs with these household products, seal them in an airtight container andthrow it into the garbage. Call [facility]: [phone] to be sure your drugs can be disposed of in this way. Some medicines may require a different approach.4.Never flush your medications down the toilet. IF YOU HAVE BEEN PRESCRIBED AN OPIOID FOR PAIN If you have been prescribed an opioid (such as hydrocodone, oxycodone or morphine), it is critical to understand the possible side effects and risks of opioid pain medications. Even when taken as directed, opioids can have several side effects including: Tolerance, meaning you might need to take more of a medication for the same pain relief. Nausea, vomiting and/or constipation. Sleepiness, dizziness, dry mouth, confusion, depression or itching. Physical dependence, meaning you have withdrawal symptoms when a medication is stopped, can develop within a few days. KNOW YOUR RESPONSIBILITIES It is important to know exactly how much and how often to take the opioid pain medications you are prescribed. Never take opioids in higher amounts or more often than prescribed. Do not combine opioids with alcohol or other drugs that cause drowsiness, such as benzodiazepines, also known as benzos, including diazepam and alprazolam, muscle relaxants or sleep aids. Never sell or share prescription opioids. This is illegal. Store opioids in a secure place and out of reach of others (including children, family, friends and visitors). The last page of this document has been signed and retained as a CHART COPY. Signatures Patient Education Materials Monitored Anesthesia Care, Care After Colonoscopy, Adult, Care After Medication Leaflets My discharge plan and instructions have been reviewed and explained to me and I,DIONICIO FRASER understand my current condition and have read and understand these discharge instructions. I have received a written copy of the plan/instructions. If I have questions, I am aware that I should contactmy doctor. Patient/Community Health Advocate Signature: Date/Time: Relationship to Patient: Witness Name/Signature: Date/Time: [facility]04-28-2025 Anesthesiology Consult note Patient: DIONICIO FRASER Age: 64 years Sex: Male : 1960 Associated Diagnoses: None Author: SON LAUREN APRN-MANAGER BUSINESS OPERATIONS Assessment Postanesthesia assessment Vitals: Vital signs from flowsheet : Vital Signs 01/25/2025 13:05 EDT Heart Rate Monitored 79 bpm bpm Respiratory Rate - Anes 22 br/min br/min Systolic Blood Pressure Non-Invasive 114 mmHg mmHg Diastolic Blood Pressure Non-Invasive 69 mmHg mmHg 01/25/2025 13:00 EDT Heart Rate Monitored 79 bpm bpm Respiratory Rate - Anes 20 br/min br/min Systolic Blood Pressure Non-Invasive 103 mmHg mmHg Diastolic Blood Pressure Non-Invasive 67 mmHg mmHg 01/25/2025 12:55 EDT Heart Rate Monitored 81 bpm bpm Respiratory Rate - Anes 16 br/min br/min Systolic Blood Pressure Non-Invasive 100 mmHg mmHg Diastolic Blood Pressure Non-Invasive 62 mmHg mmHg 01/25/2025 12:52 EDT Systolic Blood Pressure Non-Invasive 123 mmHg mmHg Diastolic Blood Pressure Non-Invasive 76 mmHg mmHg 01/25/2025 12:22 EDT Temperature Temporal Artery 36.4 DegC Peripheral Pulse Rate 72 bpm Respiratory Rate 15 br/min Systolic Blood Pressure Non-Invasive 125 mmHg Diastolic Blood Pressure Non-Invasive 75 mmHg . Mental status: alert & oriented x 4. Respiratory function: lungs are clear to auscultation. Respiratory support: none. CV function: Normal rate. Cardiovascular support: none. Pain. Nausea status: see nursing documentation of medications. Postoperative hydration status: within normal limits. Digitally Signed by SON LAUREN on 01/25/2025 01:12 PM [facility]04-28-2025 Note Indication for Surgery Colorectal cancer screening, high risk Preoperative Diagnosis Personal history of colon polyps Postoperative Diagnosis 1. 1 mm rectal polyp 2. Normal colon Operation Colonoscopy with biopsy polypectomy Surgeon(s) Anastasia Roman D.O. Anesthesia MAC Estimated Blood Loss None Specimen(s) Rectal polyp Complications None Technique The patient was evaluated in the preoperative area and surgical consent was obtained. He was then brought to endoscopy and monitoring pulse oximetry, cardiac monitoring and placed on supplemental oxygen. He was placed in left lateral decubitus position and a surgical timeout was obtained. Sedation was provided by anesthesia. A digital exam was unremarkable. Colonoscope inserted into the rectum advanced to the cecum. Cecal pouch appeared normal. Photographs were obtained. The colonoscope then carefully checked under 6-minute withdrawal with a good prep. Retroflexion view revealed a small 1 mm rectal polyp. This was removed with biopsy polypectomy. Patient was then transferred to the recovery area in stable condition vital signs. Discharge summary: 1. Final Diagnosis: 1. 1 mm rectal polyp 2. Outcome: Patient tolerated procedure well without complication 3. Disposition: Patient was discharged home to follow previous diet and medications 4. Follow-up care: Follow-up with primary care physician as scheduled. Repeat exam in 5 years Digitally Signed by ANASTASIA ROMAN DO on 01/25/2025 01:10 PM [facility]04-28-2025 Anesthesiology Consult note Patient: DIONICIO FRASER Age: 64 years Sex: Male : 1960 Associated Diagnoses: None Author: SON LAUREN Preoperative Information Time of last food or liquid consumption: 01/24/2025 11:00:00 Anesthesia history Patient's history: negative. Family's history: negative. Review of Systems Ear/Nose/Mouth/Throat: Negative except as documented in history of present illness. Respiratory: Negative except as documented in history of present illness. Cardiovascular: Negative except as documented in history of present illness. Gastrointestinal: Negative except as documented in history of present illness. Genitourinary: Negative except as documented in history of present illness. Endocrine: Negative except as documented in history of present illness. Musculoskeletal: Negative except as documented in history of present illness. Integumentary: Negative except as documented in history of present illness. Neurologic: Negative except as documented in history of present illness. Health Status Allergies: Allergic Reactions (Selected) Severity Not Documented Coconut- Vomiting., Allergies (1) ActiveSeverityReaction coconutVomiting Current medications: (Selected) Inpatient Medications Ordered NS 1,000 mL: 20 mL/hr, Intravenous Prescriptions Prescribed Albuterol (Eqv-ProAir HFA) 90 mcg/inh inhalation aerosol: 1 puff(s), Inhalation, q6hr, 8 gram(s), 11 Refill(s) MetFORMIN (Eqv-Glucophage XR) 500 mg oral tablet, EXTENDED RELEASE: 500 mg, 1 tab(s), Oral, BID, for 100 day(s), 200 tab(s), 1 Refill(s) PEG-3350 with Electrolytes (Eqv-GoLYTELY) oral powder for reconstitution: See Instructions, Take asdirected starting 1 day before colonoscopy. Follow instructions as provided by your GI provider at [facility]., 1 EA, 0 Refill(s) Singulair 10 mg oral tablet: 10 mg, 1 tab(s), Oral, qPM, 90 tab(s), 1 Refill(s) Zocor 80 mg oral tablet: 80 mg, 1 tab(s), Oral, qHS, for 100 day(s), 100 tab(s), 1 Refill(s) lisinopril 5 mg oral tablet: 2.5 mg, 0.5 tab(s), Oral, qDay, for 100 day(s), 50 tab(s), 1 Refill(s) sertraline 100 mg oral tablet: 100 mg, 1 tab(s), Oral, qDay, for 100 day(s), 100 tab(s), 1 Refill(s) Documented Medications Documented Advair Diskus 250 mcg-50 mcg inhalation powder: 1 puff(s), Inhalation, BID, 0 Refill(s) Afrin 0.05% nasal spray: 1 spray(s), Intranasal, BID, 30 mL, 0 Refill(s) Benadryl 25 mg oral tablet: 25 mg, 1 tab(s), Oral, qDay, PRN: for allergy symptoms, 0 Refill(s) Flonase 50 mcg/inh nasal spray: 1 spray(s), Nasal, BID Tylenol Extra Strength 500 mg oral tablet: 1,000 mg, 2 tab(s), Oral, q4h, 120 tab(s), PRN: as needed for pain albuterol 2.5 mg/3 mL (0.083%) inhalation solution: 2.5 mg, 3 mL, Inhalation, q6h, PRN: as needed for wheezing aspirin 81 mg oral delayed release tablet: 81 mg, 1 tab(s), Oral, qDay, 0 Refill(s) azelastine 0.05% ophthalmic solution: 0 Refill(s) azelastine 137 mcg/inh (0.1%) nasal spray: 137 mcg, 1 spray(s), Nostril, each, BID, PRN: as needed for allergy symptoms, 0 Refill(s) cyclobenzaprine 10 mg oral tablet: 10 mg, 1 tab(s), Oral, TID, 30 tab(s), PRN: for spasm eletriptan 40 mg oral tablet: 40 mg, 1 tab(s), Oral, Daily, may repeat dose once in 2 hours, PRN: for migraine headache, 6 tab(s), 0 Refill(s) loratadine 5 mg oral tablet, disintegratin mg, 1 tab(s), Oral, qDay, NOT Disintegrating, 0 Refill(s) nortriptyline 75 mg oral capsule: 75 mg, 1 cap(s), Oral, qHS, 30 cap(s), 0 Refill(s) topiramate 50 mg oral tablet: 50 mg, 1 tab(s), Oral, qDay, 0 Refill(s), Medications (1) Active Scheduled: (0) Continuous: (1) NS (0.9% nacl) 1,000 mL 1,000 mL, Intravenous, 20 mL/hr PRN: (0) Problem list: Medical Arthritis / SNOMED CT 4650105 / Confirmed Asthma / SNOMED CT [id number] / Confirmed Chronic 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 / SNOMED CT 9631781986 / Confirmed CKD (chronic kidney disease), stage II / SNOMED CT 2234178997 / Confirmed Corneal abrasion / SNOMED CT 361518692 / Confirmed COVID / SNOMED CT 4954061370 / Confirmed Depression / SNOMED CT [id number] / Confirmed Eustachian tube disorder / SNOMED CT 716780036 / Confirmed Hypercholesteremia / SNOMED CT [id number] / Confirmed Migraine / SNOMED CT 42775688 / Confirmed Well adult exam / SNOMED CT 898599027 / Confirmed Screening for colon cancer / SNOMED CT 896733959 / Confirmed Screening for prostate cancer / SNOMED CT 929061110 / Confirmed Screening for diabetic peripheral neuropathy / SNOMED CT 166214221 / Confirmed Diabetic eye exam / SNOMED CT 541299725 / Confirmed Pneumothorax / SNOMED CT 44166143 / Confirmed Sleep apnea / SNOMED CT 253165196 / Confirmed Type 2 diabetes mellitus with peripheral neuropathy / SNOMED CT 213878761 / Confirmed Type 2 diabetes mellitus / SNOMED CT 108571365 / Confirmed Canceled: Diabetes mellitus / SNOMED CT 833034895 Canceled: Type 2 diabetes mellitus / SNOMED CT 766572483, Active Problems (19) Arthritis Asthma Chronic 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 CKD (chronic kidney disease), stage II Corneal abrasion COVID Depression Diabetic eye exam Eustachian tube disorder Hypercholesteremia Migraine Pneumothorax Screening for colon cancer Screening for diabetic peripheral neuropathy Screening for prostate cancer Sleep apnea Type 2 diabetes mellitus Type 2 diabetes mellitus with peripheral neuropathy Well adult exam Histories Past Medical History: Active Depression ([id number]) Pneumothorax (01452684) Comments: 09/07/2014 EST 10:11 JENNIFER Gonzales left Sleep apnea ([id number]) Arthritis (4465476) Family History: Patient was adopted. Asthma Daughter Son Depression Son Procedure history: Total knee replacement, L ([id number]) in 2017 at 57 Years. Comments: 06/15/2019 6:58 Ninoska Peterson LPN Cardiac catheterization ([id number]) on 02/22/2016 at 55 Years. Comments: 06/15/2019 6:59 Ninoska Peterson LPN, Dr. Cardiovascular stress testing ([id number]) on 11/29/2015 at 55 Years. Comments: 06/15/2019 7:03 Ninoska Peterson LPN Daya Hernia repair, umbilical ([id number]) on 10/28/2015 at 55 Years. Comments: 06/15/2019 7:01 Ninoska Peterson LPN Umbilical w/mesh-Dr. Hancock Pulmonary function test ([id number]) on 06/15/2011 at 51 Years. Comments: 06/15/2019 7:04 Ninoska Peterson LPN Mod/Severe Obs Vent Impairment Breast biopsy ([id number]) on 07/04/2009 at 49 Years. Comments: 10/06/2020 16:38 Ninoska Gann LPN breast Mammogram ([id number]) on 06/21/2009 at 49 Years. Comments: 06/15/2019 7:06 Ninoska Peterson LPN L, probable gynecomastia Ultrasound, L breast ([id number]) on 06/21/2009 at 49 Years. Comments: 06/15/2019 7:06 Ninoska Peterson LPN probable gynecomastia Arthroscopy of knee ([id number]). Comments: 09/07/2014 10:06 JENNIFER GONZALES bilateral Septoplasty or submucous resection, with or without cartilage scoring, contouring or replacement with graft (40845). Lumpectomy of breast (4376102245). Comments: 09/07/2014 10:06 JENNIFER GONZALES left Insertion of chest tube ([id number]). Comments: 09/07/2014 10:07 JENNIFER GONZALES left Teeth operation (996085491). Extraction of wisdom tooth (361292411). Cleft palate and cleft lip ([id number]). Social History: Social & Psychosocial Habits Alcohol 01/13/2025 Use: Never Employment/School 01/13/2025 Status: Employed Description: [employer] Substance Abuse 01/13/2025 Use: Never Tobacco 01/13/2025 Tobacco Use: Former smoker, quit more Comment: Only smoked in high school. Quit chew 06/02/2008. 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 Nutrition/Health 01/13/2025 Type of diet: Regular Appetite Good Eating Difficulties None Caffeine intake amount: 8 diet pop daily, at least 1/2 have no caffeine Physical Examination Vital Signs 01/25/2025 13:00 EDT Heart Rate Monitored 79 bpm bpm Respiratory Rate - Anes 20 br/min br/min 01/25/2025 12:55 EDT Heart Rate Monitored 81 bpm bpm Respiratory Rate - Anes 16 br/min br/min Systolic Blood Pressure Non-Invasive 100 mmHg mmHg Diastolic Blood Pressure Non-Invasive 62 mmHg mmHg 01/25/2025 12:52 EDT Systolic Blood Pressure Non-Invasive 123 mmHg mmHg Diastolic Blood Pressure Non-Invasive 76 mmHg mmHg 01/25/2025 12:22 EDT Temperature Temporal Artery 36.4 DegC Peripheral Pulse Rate 72 bpm Respiratory Rate 15 br/min Systolic Blood Pressure Non-Invasive 125 mmHg Diastolic Blood Pressure Non-Invasive 75 mmHg Vital Signs (last 24 hrs) Last Charted Temp Mfpkyftx10.4 DegC (JAN 25 12:22) Heart Rate Jboxljiqn06 bpm (JAN 25 13:00) EOZ503 mmHg (JAN 25 12:55) DBP62 mmHg (JAN 25 12:55) BMI30.18 (JAN 25 12:32) Measurements from flowsheet : Measurements 01/25/2025 12:32 EDT Height 172.7 cm Admission Weight 90 kg [place] Body Weight 68.38 kg BSA Admission 2.04 Body Mass Index 30.18 kg/m2 01/25/2025 12:22 EDT Height 172.7 cm Height in inches 68 inch(es) Admission Weight 90 kg Weight Lbs 198 lb [place] Body Weight 68.38 kg Admission Body Mass Index 30.18 m2 Pain assessment: Pain Assessment 01/25/2025 12:22 EDT Primary Pain Intensity 0 Pain Scale Type 0-10 Pain scale . General: Alert and oriented. Airway: Normal neck range of motion. Mallampati classification: II (soft palate, fauces, uvula visible). Head: Normocephalic. Dentition Evaluation: Intact, Own teeth. Neck: Full range of motion. Respiratory: Lungs are clear to auscultation. Cardiovascular: Normal rate. Heart Sounds: Normal. Gastrointestinal: Soft. Musculoskeletal Normal range of motion. Integumentary: Intact, Warm, Dry. Neurologic: Alert, Oriented. Review / Management Results review: No qualifying data available , Lab results 01/25/2025 13:07 EDT SN - Proc - Actual Procedure COLONOSCOPY WITH POLYPECTOMY (Modified) 01/25/2025 13:00 EDT Heart Rate Monitored 79 bpm bpm Respiratory Rate - Anes 20 br/min br/min Oxygen Saturation 99.8 % % 01/25/2025 12:59 EDT SN - NE - Medication simethicone 40 mg/0.6 mL Liquid 30mL SN - NE - Route of Administration Local SN - NE - By (Single) SN - NE - By (Single) SN - NE - Time Administered 01/25/2025 12:58 01/25/2025 12:55 EDT SN - GCD - ASA Class 3 01/25/2025 12:55 EDT Heart Rate Monitored 81 bpm bpm Respiratory Rate - Anes 16 br/min br/min Systolic Blood Pressure Non-Invasive 100 mmHg mmHg Diastolic Blood Pressure Non-Invasive 62 mmHg mmHg Oxygen Saturation 98.5 % % lidocaine 100 mg mg propofol 100 mg mg 01/25/2025 12:52 EDT Systolic Blood Pressure Non-Invasive 123 mmHg mmHg Diastolic Blood Pressure Non-Invasive 76 mmHg mmHg 01/25/2025 12:51 EDT SN - CTm - Anesthesia Start Time Anesthesia Start 01/25/2025 12:48 EDT SN - Proc - Anesthesia Type MAC SN - Proc - EBL 0 mL 01/25/2025 12:47 EDT SN - PP - Body Position Lateral Right Side-up Standard Intra-op 01/25/2025 12:46 EDT SN - GCD - Post-operative Diagnosis SCREENING SN - GCD - Case Level OPD Level 3 01/25/2025 12:45 EDT SN - Cul - Culture Type Tissue in Formalin SN - Cul - Kind Specimen 01/25/2025 12:45 EDT SN - CAt - Case Attendee SN - CAt - Case Attendee SN - CAt - Case Attendee SN - CAt - Case Attendee SN - CAt - Case Attendee SN - CAt - Case Attendee SN - CAt - Case Attendee SN - CAt - Case Attendee SN - CAt - Role Performed Procedure Nurse SN - CAt - Role Performed Acid Maker SN - CAt - Role Performed MANAGER BUSINESS OPERATIONS SN - CAt - Role Performed Primary Surgeon 01/25/2025 12:40 EDT Sodium Chloride 0.9% Begin Bag 1,000 mL mL 01/25/2025 12:38 EDT Respirations Unlabored All Lobes Breath Sounds Clear Cough None Abdomen Description Non-distended Skin Description [place] Skin Temperature Warm Skin Integrity Intact Skin Moisture General Dry Neurological Symptoms Patient denies Extremity Movement Equal Characteristics of Speech Clear Strength All Extremities Strong Sensation All Extremities Intact Assistive Device None Positioning Repositions self Standard Safety ID band on, Allergy Band on, Call device within reach, Bed in low position, Wheels locked, Safety level maintained 01/25/2025 12:37 EDT Continuous IV Infusions NS Antecubital Right 01/25/2025 22 gauge Peripheral IV Activity: Insert new site Peripheral IV Dressing Condition: Clean, Dry, Intact Peripheral IV Dressing Activity: Applied, Transparent dressing Peripheral IV Line Status/Patency: Continuous infusion Peripheral IV Site Condition: No complications Peripheral IV Equipment: Extension set, PRN Adaptor Peripheral IV Number of Attempts: 1 01/25/2025 12:35 EDT IV Present Present Allergies Yes Anesthesia Extension Set Applied Yes Flare Maker On Yes Colon Prep Results Good Consent Form Signed Yes Patient Dressed In Hospital gown, No undergarments History & Physical Update On Chart Yes History & Physical On Chart Yes Bowel Prep Completed Yes Belongings At Bedside Cell phone, Pants, Shoes, Socks, T-shirt NPO Status Maintained Allergy Band on and Verified Yes Patient ID Band on and Verified Yes Implants Verified Yes Pacemaker/AICD Verified Yes Site Verified by Patient/Family Yes Anesthesia Consent Signed Yes Last Fluid Intake 01/25/2025 8:30 Last Food Intake 01/23/2025 20:00 01/25/2025 12:32 EDT Designated Person #1 We May Share [facility] Designated Person #1 We May Share [facility] Designated Person #1 Relationship Spouse Height 172.7 cm Admission Weight 90 kg [place] Body Weight 68.38 kg BSA Admission 2.04 Body Mass Index 30.18 kg/m2 Status N/A Sensory Deficits None Infectious Disease Symptoms Patient states no symptoms Infectious Disease Recent Exposure No Alcohol and Drug Use No Employee of Institutional Living No Health Care Employee No History of Exposure to TB No History of Positive Chest X-Ray for TB No History of Positive TB Skin Test No Homeless No Known Immunosuppression No Recent Immigrant No Resident of Institutional Living No Bloody Sputum No Fatigue No Fever No Loss of Appetite No Night Sweats No Persistent Cough > 3 Weeks No Weight Loss No Barriers to Learning None evident Teaching Method Explanation Preferred Spoken Language Iraqi Preferred Written Language Iraqi Patient's Current Physicians Patient's Current Physicians Discharge To, Anticipated Home independently Prev Test Positive/Diagnosis w/COVID-19 No Current Quarantine/Isolated any Illness No Any Contact with Sick Animals/Birds No Traveled Anywhere in Last 30 Days No N/A Personal Devices, Patient Valuables None Admission Note-Nursing Procedure/Therapy Intake 01/25/2025 12:27 EDT Blood Glucose, Capillary 68 mg/dL LOW 01/25/2025 12:22 EDT Height 172.7 cm Height in inches 68 inch(es) Admission Weight 90 kg Weight Lbs 198 lb [place] Body Weight 68.38 kg Admission Body Mass Index 30.18 m2 Temperature Temporal Artery 36.4 DegC Peripheral Pulse Rate 72 bpm Respiratory Rate 15 br/min Systolic Blood Pressure Non-Invasive 125 mmHg Diastolic Blood Pressure Non-Invasive 75 mmHg Primary Pain Intensity 0 Pain Scale Type 0-10 Pain scale Heart Rhythm Regular Oxygen Therapy Room air Oxygen Saturation 98 % Level of Consciousness Alert Affect/Behavior Appropriate, Calm, Cooperative Orientation Oriented x 4 01/25/2025 12:21 EDT [place] History and Physical . Assessment and Plan [place] [employer] Anesthesiologists (ASA) physical status classification: Class II. Anesthetic Preoperative Plan Premedication: intravenous. Anesthetic technique: MAC. Induction: intravenously. Maintenance airway: Mask. Risks discussed: nausea, vomiting, headache, sore throat, dental injury, hypotension, allergic reaction, serious complications. Informed consent: signed by patient. Digitally Signed by SON LAUREN on 01/25/2025 01:10 PM [facility]04-28-2025 Note [place] ADMISSION HISTORY AND PHYSICIAL CHIEF COMPLAINT: Colorectal cancer screening, high risk HISTORY OF PRESENT ILLNESS: Personal history of colon polyps REVIEW OF SYSTEMS: Constitutional: denies weight loss Cardiovascular:denies chest pain, palpitations Respiratory:denies shortness of breath Gastrointestinal:no abd pain Musculoskeletal: no arthralgias Skin: no rashes ACTIVE PROBLEMS: (19) Arthritis (6149808) Asthma ([id number]) Chronic 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 (8632096434) CKD (chronic kidney disease), stage II (1415898812) Corneal abrasion (600279826) COVID (5347078740) Depression ([id number]) Diabetic eye exam (397471782) Eustachian tube disorder (033267040) Hypercholesteremia ([id number]) Migraine (51821956) Pneumothorax (33172277) Screening for colon cancer (730398308) Screening for diabetic peripheral neuropathy (128004364) Screening for prostate cancer (233825130) Sleep apnea (713197919) Type 2 diabetes mellitus (656421197) Type 2 diabetes mellitus with peripheral neuropathy (482198642) Well adult exam (681074464) MEDICATIONS: Active Inpt Meds: None Active PRN Meds: None One Time Meds: None Active IV Meds: None ALLERGIES: (1) coconut FAMILY HISTORY: SOCIAL HISTORY: PHYSICAL EXAM: VITALS: No Data Available 24 Hr Tmax: No Data Available 36 Hr Tmax: No Data Available Vital Signs are the last 5 in the past 48 hours. Weights display the last 5 within 7 days. Initial Wt: No Data Available Current Wt: No Data Available physical exam alert and oriented cardio; regular without murmur pulm; clear abd; soft, nontender LABS: No 36hr Lab Data DIAGNOSTICS: IMPRESSION: Personal history of colon polyps PLAN: Colonoscopy as discussed in office Digitally Signed by ANASTASIA ROMAN DO on 01/25/2025 12:21 PM [facility]05-11-2023 Note ORIGINAL EXAMINATION: TWO XRAY VIEWS OF THE CHEST02/07/2023 9:57 am XR Chest two views COMPARISON: 04/05/2017 HISTORY: ORDERING SYSTEM PROVIDED HISTORY: Reason for Exam: persistent uri, cough, asthma, FINDINGS: No suspicious nodule, acute infiltrate, consolidation,mass, pneumothorax, pleural fluid, or vascular congestion is seen. Heart size and mediastinal contours are within normal limits for age and projection. No acute skeletal abnormality. There is minimal scarring in the left hilar region also seen previously. IMPRESSION: No acute cardiopulmonary process. Interpreted by: Ottoniel Dallas MD Preliminary Report By: Ottoniel Dallas MD Electronically signed By Ottoniel Dallas MD Dictated Date: 02/07/2023 9:55:12 PM Prelim Date: 02/07/2023 9:56:08 PM Sign Date: 02/07/2023 9:56:08 PM Ordering Provider: [facility]05-11-2023 Note ORIGINAL EXAMINATION: TWO XRAY VIEWS OF THE CHEST02/07/2023 9:57 am XR Chest two views COMPARISON: 04/05/2017 HISTORY: ORDERING SYSTEM PROVIDED HISTORY: Reason for Exam: persistent uri, cough, asthma, FINDINGS: No suspicious nodule, acute infiltrate, consolidation,mass, pneumothorax, pleural fluid, or vascular congestion is seen. Heart size and mediastinal contours are within normal limits for age and projection. No acute skeletal abnormality. There is minimal scarring in the left hilar region also seen previously. IMPRESSION: No acute cardiopulmonary process. Interpreted by: Ottoniel Dallas MD Preliminary Report By: Ottoniel Dallas MD Electronically signed By Ottoniel Dallas MD Dictated Date: 02/07/2023 9:55:12 PM Prelim Date: 02/07/2023 9:56:08 PM Sign Date: 02/07/2023 9:56:08 PM Ordering Provider: [facility]02-28-2022 Hospital Discharge instructions Patient Education 11/27/2021 13:04:58 Colonoscopy, Adult, Care After, Fyoj-mj-Skgz Colonoscopy, Adult, Care After This sheet gives you information about how to care for yourself after your procedure. Your doctor may also give you more specific instructions. If you have problems or questions, call your doctor. What can I expect after the procedure? After the procedure, it is common to have: A small amount of blood in your poop for 24 hours. Some gas. Mild cramping or bloating in your belly. Follow these instructions at home: General instructions For the first 24 hours after the procedure: ?Do not drive or use machinery. ?Do not sign important documents. ?Do not drink alcohol. ?Do your daily activities more slowly than normal. ?Eat foods that are soft and easy to digest. Take lwxq-cwo-xfwahvq or prescription medicines only as told by your doctor. To help cramping and bloating: Try walking around. Put heat on your belly (abdomen) as told by your doctor. Use a heat source that your doctor recommends, such as a moist heat pack or a heating pad. ?Put a towel between your skin and the heat source. ?Leave the heat on for 20 30 minutes. ?Remove the heat if your skin turns bright red. This is especially important if you cannot feel pain, heat, or cold. You can get burned. Eating and drinking Drink enough fluid to keep your pee (urine) clear or pale yellow. Return to your normal diet as told by your doctor. Avoid heavy or fried foods that are hard to digest. Avoid drinking alcohol for as long as told by your doctor. Contact a doctor if: You have blood in your poop (stool) 2 3 days after the procedure. Get help right away if: You have more than a small amount of blood in your poop. You see large clumps of tissue (blood clots) in your poop. Your belly is swollen. You feel sick to your stomach (nauseous). You throw up (vomit). You have a fever. You have belly pain that gets worse, and medicine does not help your pain. Summary After the procedure, it is common to have a small amount of blood in your poop. You may also have mild cramping and bloating in your belly. For the first 24 hours after the procedure, do not drive or use machinery, do not sign important documents, and do not drink alcohol. Get help right away if you have a lot of blood in your poop, feel sick to your stomach, have a fever, or have more belly pain. This information is not intended to replace advice given to you by your health care provider. Make sure you discuss any questions you have with your health care provider. Document Released: 10/19/2011 Document Revised: 07/17/2018 Document Reviewed: 06/10/2017 [employer] Patient Education 2020 [employer]. 11/27/2021 13:04:45 Monitored Anesthesia Care, Care After Monitored Anesthesia Care, Care After These instructions provide you with information about caring for yourself after your procedure. Your health care provider may also give you more specific instructions. Your treatment has been plannedaccording to current medical practices, but problems sometimes occur. Call your health care provider if you have any problems or questions after your procedure. What can I expect after the procedure? After your procedure, you may: Feel sleepy for several hours. Feel clumsy and have poor balance for several hours. Feel forgetful about what happened after the procedure. Have poor judgment for several hours. Feel nauseous or vomit. Have a sore throat if you had a breathing tube during the procedure. Follow these instructions at home: For at least 24 hours after the procedure: Have a responsible adult stay with you. It is important to have someone help care for you until youare awake and alert. Rest as needed. Do not: ?Participate in activities in which you could fall or become injured. ?Drive. ?Use heavy machinery. ?Drink alcohol. ?Take sleeping pills or medicines that cause drowsiness. ?Make important decisions or sign legal documents. ?Take care of children on your own. Eating and drinking Follow the diet that is recommended by your health care provider. If you vomit, drink water, juice, or soup when you can drink without vomiting. Make sure you have little or no nausea before eating solid foods. General instructions Take iavx-sga-iuaaacg and prescription medicines only as told by your health care provider. If you have sleep apnea, surgery and certain medicines can increase your risk for breathing problems. Follow instructions from your health care provider about wearing your sleep device: ?Anytime you are sleeping, including during daytime naps. ?While taking prescription pain medicines, sleeping medicines, or medicines that make you drowsy. If you smoke, do not smoke without supervision. Keep all follow-up visits as told by your health care provider. This is important. Contact a health care provider if: You keep feeling nauseous or you keep vomiting. You feel light-headed. You develop a rash. You have a fever. Get help right away if: You have trouble breathing. Summary For several hours after your procedure, you may feel sleepy and have poor judgment. Have a responsible adult stay with you for at least 24 hours or until you are awake and alert. This information is not intended to replace advice given to you by your health care provider. Make sure you discuss any questions you have with your health care provider. Document Released: 01/06/2017 Document Revised: 12/15/2018 Document Reviewed: 01/06/2017 [employer] Patient Education 2020 [employer]. 11/27/2021 13:04:25 Colon Biopsy, Care After Colon Biopsy, Care After This sheet gives you information about how to care for yourself after your procedure. Your health care provider may also give you more specific instructions. If you have problems or questions, contact your health care provider. What can I expect after the procedure? After the procedure, it is common to have: A small amount of blood in your stool for 24 hours after the procedure. Some gas. Mild cramping or bloating in your abdomen. Follow these instructions at home: General instructions For the first 24 hours after the procedure: ?Do not drive or use machinery. ?Do not sign important documents. ?Do not drink alcohol. ?Do your regular daily activities at a slower pace than normal. ?Eat soft, ikqz-eh-nfgfhk foods. ?Rest often. Take egde-abf-vqqduqm or prescription medicines only as told by your health care provider. Keep all follow-up visits as told by your health care provider. This is important. Relieving cramping and bloating Try walking around when you have cramps or feel bloated. Put heat on your abdomen as told by your health care provider. Use a heat source that your health care provider recommends, such as a moist heat pack or a heating pad. ?Place a towel between your skin and the heat source. ?Leave the heat on for 20 30 minutes. ?Remove the heat if your skin turns bright red. This is especially important if you are unable to feel pain, heat, or cold. You may have a greater risk of getting burned. Eating and drinking Drink enough fluid to keep your urine pale yellow. Return to your normal diet as instructed by your health care provider. Avoid heavy or fried foods that are hard to digest. Avoid drinking alcohol for as long as told by your health care provider. Contact a health care provider if: You have blood in your stool 2 3 days after the procedure. Get help right away if: You have more than a small spotting of blood in your stool. You pass large blood clots in your stool. Your abdomen is swollen. You have nausea or vomiting. You have a fever. You have increasing abdominal pain that is not relieved with medicine. Summary After the procedure, it is common to have mild cramping and bloating in the abdomen. Do not drive for 24 hours after the procedure. Try walking around when you have cramps or feel bloated. This information is not intended to replace advice given to you by your health care provider. Make sure you discuss any questions you have with your health care provider. Document Released: 02/25/2018 Document Revised: 08/29/2018 Document Reviewed: 02/25/2018 [employer] Patient Education [place]. Follow Up Care 10/16/2021 15:01:48 With:ESTEPHANIA HANCOCK MD, Surgery Address: [phone] When: Unknown Comments:CALL THE OFFICE TO MAKE A 2 WEEK FOLLOW UP APPOINTMENT TO DISCUSS THE RESULTS OF THE 3 POLYPS. CALLDR HANCOCK WITH ANY QUESTIONS. TO GO THE EMERGENCY ROOM WITH ANY URGENT CONCERNS. [facility] Novopyxisaluation + Plan note Future Appointments Appointment Date:03/06/2022 07:30:00 AM Scheduled Provider:NARA PIPER Location:[facility] Appointment Type: OV [facility] Evaluation + Plan note Future Appointments Appointment Date:09/13/2022 11:00:00 AM Scheduled Provider:NARA PIPER Location:[facility] Appointment Type:PC OV Follow Up [facility] Evaluation + Plan note Future Appointments Appointment Date:03/28/2023 04:30:00 PM Scheduled Provider:NARA PIPER Location:[facility] Appointment Type: OV [facility] Evaluation + Plan note Future Appointments Appointment Date:04/09/2024 04:30:00 PM Scheduled Provider:NARA PIPER Location:[facility] Appointment Type:PC OV [facility] Evaluation + Plan note Future Appointments Appointment Date:12/01/2024 07:30:00 AM Scheduled Provider:NARA PIPER Location:[facility] Appointment Type:PC Wellness Annual [facility] Hospital course Narrative No data available for this section [facility] Hospital Discharge instructions No data available for this section [facility] Progress note No data available for this section [facility] Summary Purpose Family History No Family History Records FoundNo Family History Records FoundNo Family History Records Found No data available for this section No Family History Records Found No data available for this section No data available for this section No Family History Records Found Advance Directives No Advanced Directives Records FoundNo Advanced Directives Records FoundNo Advanced Directives Records FoundNo Advanced Directives Records FoundNo Advanced Directives Records Found Additional Source Comments (unrecognized sect ion and content) No Status Records FoundNo Status Records FoundNo Status Records FoundNo Status Records FoundNo Status Records Found INFORMATION SOURCE (unrecogn ized section and content) DATE CREATED AUTHOR 03/25/2018 [facility] DATE CREATED AUTHOR AUTHOR'S ORGANIZ ATION 03/26/2018 [facility] DATE CREATED AUTHOR AUTHOR'S ORGANIZ ATION 12/14/2020 [facility] DATE CREATED AUTHOR AUTHOR'S ORGANIZ ATION 01/14/2024 [facility] ([place]) DATE CREATED AUTHOR AUTHOR'S ORGANIZ ATION 02/13/2025 [facility] Care Team (unrecognized sect ion and content) Care Team Personnel Name: NARA PIPER Position: P4 Advanced Practice Nurse Member Role: Primary Care Physician Address: Address: [address] [facility] [place] [address]- [place] Name: LESLEY BAZAN MD Position: [facility] Physician Member Role: Neurologist Address: Address: [address] [place] [address]- [place] Name: Arsen Waddell Member Role: Jig And Fixture Repairer Care Team Related Persons Name: AVE FRASER Address: Home [address], [place] [phone] [place] Patient Care team informatio n (unrecognized section and content) Care Team Personnel Name: NARA PIPER Position: P4 Advanced Landscaping And Groundskeeping Laborer Member Role: Primary Care Physician Address: Address: [address] [place] [address]- [place] Name: LESLEY BAZAN MD Position: [facility] Physician Member Role: Neurologist Address: Address: [address] [place] [phone]- [place] Name: Arsen Waddell Member Role: Jig And Fixture Repairer Care Team Related Persons Name: AVE FRASER Address: Home [address], [place] [phone] [place] Care Team Personnel Name: NARA PIPER Position: P4 [employer]sc[employer] And Groundskeeping Laborer Member Role: Primary Care Physician Address: Address: [address] [place] [address]- [place] Name: LESLEY BAZAN MD Position: [facility] Physician Member Role: Neurologist Address: Address: [address] [phone]- [place] Name: Arsen Waddell Member Role: Jig And Fixture Repairer Name: KATIE FARR MD Position: Physician Member Role: Psychological Operations Address: Address: [facility] [place] [address]- [place] Care Team Related Persons Name: AVE FRASER Address: [address], [place] [phone] [place] Care Team Personnel Name: NARA PIPERCASH MANAGEMENT ASSOCIATE Position: P4 Advanced Landsc[employer] And Groundskeeping Laborer Member Role: Primary Care Physician Address: Address: [address] [place] [address]- [place] Name: LESLEY BAZAN MD Position: [facility] Physician Member Role: Neurologist Address: Address: [address] [place] [address]- Name: Arsen Waddell Member Role: Jig And Fixture Repairer Name: KATIE FARR MD Position: Physician Member Role: Psychological Operations Address: Address: [address] [place] [address]- Care Team Related Persons Name: AVE FRASER Address: [address], [place] [phone] Care Team Personnel Name: NARA PIPER Position: [facility]4 Advanced Landsc[employer] And Groundskeeping Laborer Member Role: Primary Care Physician Address: [address] [place] [address]- [place] Telecom: Name: LESLEY BAZAN MD Position: [facility] Physician Member Role: Neurologist Address: [address] [phone]- Telecom: Name: Arsen Waddell Member Role: Jig And Fixture Repairer Telecom: Name: KATIE FARR MD Position: Physician Member Role: Psychological Operations Address: [address] [place] [address]- [place] Telecom: Care Team Related Persons Name: AVE FRASER Care Team Personnel Name: NARA PIPER Position: P4 Advanced Landsc[employer] And Groundskeeping Laborer Member Role: Primary Care Physician Address: [address] [place] [address]- Telecom: Name: LESLEY BAZAN MD Position: [facility] Physician Member Role: Neurologist Address: [address] [place] [address]- [place] Telecom: Name: Arsen Waddell Member Role: Jig And Fixture Repairer Telecom: Name: KATIE FARR MD Position: Physician Member Role: Psychological Operations Address: [address] [facility] [place] [address]- [place] Telecom: Care Team Related Persons Name: AVE FRASER FOR RECORDS PERTAINING TO PATIENTS WHO ARE OR HAVE BEEN ENROLLED IN A CHEMICAL DEPENDENCY/SUBSTANCEABUSE PROGRAM, SOME INFORMATION MAY BE OMITTED. This clinical summary was aggregated from multiple sources. Caution should be exercised in using it in the provision of clinical care. This summary normalizes information from multiple sources, and as a consequence, information in this document may materially change the coding, format and clinical context of patient data. In addition, data may be omitted in some cases. CLINICAL DECISIONS SHOULD BE BASED ON THE PRIMARY CLINICAL RECORDS. [facility]. provides no warranty or guarantee of the accuracy or completeness of information in this document.
== END | disposition home or self-care (01) ==
LOC: LAB 09:59
PROVIDERS: PCP Nurse Practitioner Primary Care; Referring Provider Internal Medicine Pulmonary Disease; Visit Provider Internal Medicine Pulmonary Disease
DX: J45.20 Mild intermittent asthma, uncomplicated (principal)
CPT/HCPCS: 36415; 85025

== ENCOUNTER → 2025-09-13 | Outpatient (CLI) | payer BC, SELFPAY ==
--- NOTE | 2025-09-10 12:30 | KNEE_PTH ---
PATIENT: NICHOLE FRASER LOC: [facility] U#:[id number] AGE/SX: 65/M ROOM: RE09/13/[address]: Dr. Garrett Olvera MD : 1960 BED: DIS: 09/13/2025 SPEC #: [id number] RECD: 09/13/25 14:52 STATUS: ZAK REQ #: [id number] KATHARINE: 09/10/25 12:[address]: Garrett Olvera DEPT: SURGICAL PATHOLOGY RECD BY: Stoney Godfrey ENTERED: 09/14/25 09:56 SP TYPE: TOTAL KNEE OTHR DR: Epifanio Wall, HISTOPATH TECH-C Tissues: A - Knee, NOS Procedures: Decalcification bone/plaque Surgery Specimen Level III HEADER OPERATION: Right total knee arthroplasty PRE-OP DIAGNOSIS: Primary osteoarthritis, right knee TISSUE SUBMITTED: A- Right knee bone and tissue MICROSCOPIC DIAGNOSIS A. Right knee, bone and soft tissue, total knee arthroplasty: - Osteoarthritic reactive and degenerative changes. - Fatty marrow spaces. MICROSCOPIC DESCRIPTION Slides are reviewed. GROSS DESCRIPTION A. Received in formalin labeled with the patient's name and date of . Designated as " right knee bone and tissue" is a 14.9 x 10.5 x 1.9 cm aggregate of irregular, turpin-yellow bone and tissue fragments, collectively comprising a knee joint. The articular surfaces are turpin-yellow to white and granular with marked eburnation and mild to moderate peripheral osteophyte formation. Fermentation Scientist sections are submitted in 2 cassettes, following decalcification. PR 5CPT:[id number]
--- OUTSIDE RECORDS SUMMARY | 2025-09-13 20:37 | XMS RPT_ITS | CCD ---
Author Organization [facility] CliniSyct Care Team Providers Care Youth Services Librarian Name Role Phone KATIE ENGLE Unavailable Unavailable ONIEL, KATIE Unavailable Unavailable ONEIL, KATIE Unavailable Unavailable ONIEL, KATIE Unavailable Unavailable ONIEL, KATIE Unavailable Unavailable ONIEL, KATIE Unavailable Unavailable ONIEL, KATIE Unavailable Unavailable ONIEL, KATIE Unavailable Unavailable ONIEL, KATIE Unavailable Unavailable ANGELA GOMEZ Unavailable Unavailable ANGELA GOMEZ Unavailable Unavailable KATIE ENGLE Unavailable Unavailable IOANA NEVES Attending Unavailable IOANA NEVSE Primary Care Unavailable IOANA NEVES Admitting Unavailable BALTES FL[employer] CLEANER-ASSISTANT PLANT CONTROLLER, NARA Primary Care Physician ([phone]) BALTES FL[employer] CLEANER-ASSISTANT PLANT CONTROLLER, NARA Primary Care Physician ([phone]) BALTES FLASK CLEANER-ASSISTANT PLANT CONTROLLER, NARA Attending Unavailabl e BALTES FLASK CLEANER-ASSISTANT PLANT CONTROLLER, NARA Primary Care Unavailabl e BALTES FLASK CLEANER-ASSISTANT PLANT CONTROLLER, NARA Attending Unavailabl e BALTES FLASK CLEANER-ASSISTANT PLANT CONTROLLER, NARA Primary Care Unavailabl e BALTES FLASK CLEANER-ASSISTANT PLANT CONTROLLER, NARA Primary Care Unavailabl e BALTES FL[employer] CLEANER-ASSISTANT PLANT CONTROLLER, NARA Attending Unavailabl e Mae MEDICAL RECORD SPECIALIST-C, Nara Primary Care Provider [phone] Dr. Katie Beatty MD, V Attending Provider [phone] Dr. Katie Beatty MD, V Referring Provider Mae MEDICAL RECORD SPECIALIST, Nara Primary Care Unavailable Katie Beatty V Referring Unavailable Katie Beatty V Attending Unavailable BALTES FL[employer] CLE[employer]ER-ASSISTANT PLANT CONTROLLER, NARA Primary Care Unavailabl e ANASTASIA ROMAN DO Attending Unavailable BALTES FLASK CLEANER-ASSISTANT PLANT CONTROLLER, NARA Primary Care Unavailabl e BALTES FLASK CLEANER-ASSISTANT PLANT CONTROLLER, NARA Attending Unavailabl e BALTES FLASK CLEANER-ASSISTANT PLANT CONTROLLER, NARA Primary Care Unavailabl e BALTES FLASK CLEANER-ASSISTANT PLANT CONTROLLER, NARA Attending Unavailabl e BALTES FLASK CLEANER-ASSISTANT PLANT CONTROLLER, NARA Primary Care Unavailabl e GOMEZ MD, ANGELA Attending Unavailable NARA CHANG Primary Care ANGELA Smith MD Attending Unavailable Allergies Allergy Classification Reported Allergen(s) Allergy Type Date of Onset Reaction(s) Facility (10 sources) Coconut extract Drug Allergy Vomiting [facility] Medications Current Medications Medication Drug Class(es) Dates Sig (Normalized) Sig (Original) acetaminophen 500 mg oral tablet (10 sources) Start: 10-14-2015 Tylenol Extra Strength 500 mg oral tablet Dose : 1,000 mg = 2 tab(s), Oral, q4h, PRN as needed for pain, # 120 tab(s), 0 Refill(s) Start Date: 10/14/15 Status: Ordered Medication Dispense Status: Completed Quantity: 120.0 Unit: tab(s) Total Allowed Fills: 1 Fills Dispensed: 0 albuterol 0.83 mg/ml inhalation solution (10 sources) beta2-Adrenergic Agonist Start: 10-14-2015 take 1 dose by inhalation every six hours as needed albuterol 2.5 mg/3 mL (0.083%) inhalation solution Dose : 2.5 mg = 3 mL, Inhalation, q6h, PRN as needed for wheezing, 0 Refill(s) Start Date: 10/14/15 Status: Ordered Medication Dispense Status: Completed Total Allowed Fills: 1 Fills Dispensed: 0 Start: 10-14-2015 take 1 dose by inhal ation every six hours as needed albuterol 2.5 mg/3 mL (0.083%) inhalation solution Dose : 2.5 mg = 3 mL, Inhalation, q6h, PRN as needed for wheezing, 0 Refill(s) Start Date: 10/14/15 Status: Ordered Albuterol (Eqv-ProAir HFA) 90 mcg/inh inhalation aerosol (10 sources) Start: 12-01-2024 take 1 dose by inhalation every six hours Albuterol (Eqv-ProAir HFA) 90 mcg/inh inhalation aerosol Dose = 1 puff(s), Inhalation, q6hr, # 8 gram(s), 11 Refill(s), Pharmacy: [facility] , Asthma, 170.2, cm, 12/01/24 7:22:00 EST, Height, kg, 12/01/24 7:22:00 EST, Dosing Weight Start Date: 12/01/24 Status: Ordered Medication Dispense Status: Completed Quantity: 8.0 Unit: g Total Allowed Fills: 12 Fills Dispensed: 0 Indications: Unspecified asthma, uncomplicated; Start: 12-01-2024 take 1 dose by inhal ation every six hours Albuterol (Eqv-ProAir HFA) 90 mcg/inh inhalation aerosol Dose = 1 puff(s), Inhalation, q6hr, # 8 gram(s), 11 Refill(s), Pharmacy: [facility] , Asthma, 170.2, cm, 12/01/24 7:22:00 EST, Height, kg, 12/01/24 7:22:00 EST, Dosing Weight Start Date: 12/01/24 Status: Ordered Quantity: 8.0 Unit: g Repeat number: 12 Indications: Unspecified asthma, uncomplicated; Start: 10-04-2021 take 1 dose by inhal ation every six hours Albuterol (Eqv-ProAir HFA) 90 mcg/inh inhalation aerosol Dose = 1 puff(s), Inhalation, q6hr, # 8 gram(s), 11 Refill(s), Pharmacy: [facility], 172.7, cm, 10/03/21 7:56:00 EST, Height, kg, 10/03/21 7:56:00 EST, Dosing Weight Start Date: 10/04/21 Status: Ordered Quantity: 8.0 Unit: g Repeat number: 12 Start: 10-04-2021 take 1 dose by inhal ation every six hours Albuterol (Eqv-ProAir HFA) 90 mcg/inh inhalation aerosol Dose = 1 puff(s), Inhalation, q6hr, # 8 gram(s), 11 Refill(s), Pharmacy: [facility], 172.7, cm, 10/03/21 7:56:00 EST, Height, kg, 10/03/21 7:56:00 EST, Dosing Weight Start Date: 10/04/21 Status: Ordered aspirin 81 mg delayed release oral tablet (10 sources) Platelet Aggregation Inhibitor, Nonsteroidal Anti-inflammatory Drug Start: 09-14-2019 aspirin 81 mg ora l delayed release tablet Dose : 81 mg = 1 tab(s), Oral, qDay, 0 Refill(s) Start Date: 09/14/19 Status: Ordered Medication Dispense Status: Completed Total Allowed Fills: 1 Fills Dispensed: 0 Start: 09-14-2019 aspirin 81 mg oral delayed release tablet Dose : 81 mg = 1 tab(s), Oral, BID, 0 Refill(s) Start Date: 09/14/19 Status: Ordered azelastine hydrochloride 0.137 mg/actuat metered dose nasal spray (8 sources) Histamine-1 Receptor Antagonist Start: 01-01-2025 take 1 dose nasal route twice daily as needed azelastine 137 mcg/inh (0.1%) nasal spray 137 mcg Dose = 1 spray(s), Nostril, each, BID, PRN as needed for allergy symptoms, 0 Refill(s) Start Date: 01/01/25 Status: Ordered Medication Dispense Status: Completed Total Allowed Fills: 1 Fills Dispensed: 0 Start: 12-23-2024 azelastine 0.0 5% ophthalmic solution 0 Refill(s) Start Date: 12/23/24 Status: Ordered Medication Dispense Status: Completed Total Allowed Fills: 1 Fills Dispensed: 0 azithromycin 250 mg oral tablet (1 source) Macrolide Antimicrobial Start: 09-04-2022 End: 09-09-2022 Zithromax Z-Ricardo 250 mg oral tablet Take two (2) tablets day 1-then one (1) tablet, Oral, Daily, X 5 day(s), # 6 tab(s), 0 Refill(s), 09/09/22 10:40:00 EST, Pharmacy: [facility] #[id number], Sore throat, 170.2, cm, 09/04/22 9:41:00 EST, Height, 112.5 Start Date: 09/04/22 Stop Date: 09/09/22 Status: Ordered benzonatate 100 mg oral capsule (1 source) Non-narcotic Antitussive Start: 02-06-2023 End: 02-16-2023 Tessalon Perles 100 mg oral capsule Dose : 100 mg = 1 cap(s), Oral, q8h, PRN as needed for cough, X 10 day(s), # 30 cap(s), 0 Refill(s), 02/16/23 9:23:00 EDT, Pharmacy: [facility] #[id number], Cough URI (upper respiratory infection), 172.7, cm, 02/06/23 8:57:00 EDT, Height Start Date: 02/06/23 Stop Date: 02/16/23 Status: Ordered chondroitin sulfates 600 mg / glucosamine hydrochloride 750 mg oral tablet (4 sources) Start: 10-14-2015 take 1 tablet by mouth once daily chondroitin-glucosam ine 600 mg-750 mg oral tablet 1 tab, Oral, Daily, 0 Refill(s) Start Date: 10/14/15 Status: Ordered cyclobenzaprine hydrochloride 10 mg oral tablet (10 sources) Muscle Relaxant Start: 10-14-2015 cyclobenzaprine 10 mg oral tablet Dose : 10 mg = 1 tab(s), Oral, TID, PRN for spasm, # 30 tab(s), 0 Refill(s) Start Date: 10/14/15 Status: Ordered Medication Dispense Status: Completed Quantity: 30.0 Unit: tab(s) Total Allowed Fills: 1 Fills Dispensed: 0 desloratadine 5 mg oral tablet (6 sources) Histamine-1 Receptor Antagonist Start: 01-15-2014 Clarinex 5 mg oral tablet (NF) Dose : 5 mg = 1 tab(s), Oral, qDay Start Date: 01/15/14 Status: Ordered Repeat number: 1 diphenhydrAMINE hydrochloride 25 mg oral tablet (10 sources) Histamine-1 Receptor Antagonist Start: 06-15-2019 Benadryl 25 mg oral tablet Dose : 25 mg = 1 tab(s), Oral, qDay, PRN for allergy symptoms, 0 Refill(s) Start Date: 06/15/19 Status: Ordered Medication Dispense Status: Completed Total Allowed Fills: 1 Fills Dispensed: 0 eletriptan 40 mg oral tablet (10 sources) Serotonin-1b and Serotonin-1d Receptor Agonist Start: 12-14-2019 eletriptan 40 mg oral tablet Dose : 40 mg = 1 tab(s), Oral, Daily, PRN for migraine headache, may repeat dose once in 2 hours, # 6 tab(s), 0 Refill(s) Start Date: 12/14/19 Status: Ordered Medication Dispense Status: Completed Quantity: 6.0 Unit: tab(s) Total Allowed Fills: 1 Fills Dispensed: 0 Flonase 50 mcg/inh nasal spray (1 source) Start: 01-15-2014 Flonase 50 mcg/inh nasal spray Dose = 1 spray(s), Nasal, BID Start Date: 01/15/14 Status: Ordered fluticasone propionate 0.093 mg/actuat metered dose nasal spray (12 sources) Corticosteroid Start: 06-01-2025 take 93 ug nasal route twice daily Xhance 93 mcg/inh nasal spray 93 mcg Dose = 1 spray(s), Nostril, each, BID, 0 Refill(s) Start Date: 06/01/25 Status: Ordered Medication Dispense Status: Completed Total Allowed Fills: 1 Fills Dispensed: 0 Start: 01-15-2014 Flonase 50 mcg /inh nasal spray Dose = 1 spray(s), Nasal, BID Start Date: 01/15/14 Status: Ordered Medication Dispense Status: Completed Total Allowed Fills: 1 Fills Dispensed: 0 fluticasone / salmeterol (10 sources) Corticosteroid, beta2-Adrenergic Agonist Start: 12-14-2019 take 1 dose by inhalation twice daily Advair Diskus 250 mcg-50 mcg inhalation powder Dose = 1 puff(s), Inhalation, BID, 0 Refill(s) Start Date: 12/14/19 Status: Ordered Medication Dispense Status: Completed Total Allowed Fills: 1 Fills Dispensed: 0 Start: 12-14-2019 take 1 dose by inhal [...] 0 Refill(s) Start Date: 12/14/19 Status: Ordered loratadine 5 mg disintegrating oral tablet (4 sources) Start: 01-01-2025 loratadine 5 mg oral tablet, disintegrating Dose : 5 mg = 1 tab(s), Oral, qDay, NOT Disintegrating, 0 Refill(s) Start Date: 01/01/25 Status: Ordered Medication Dispense Status: Completed Total Allowed Fills: 1 Fills Dispensed: 0 methylPREDNISolone 4 mg oral tablet (1 source) Corticosteroid Start: 09-04-2022 End: 09-10-2022 Medrol Dosepak 4 mg oral tablet Per Dosepak Instructions, Oral, Daily, as directed on package labeling, X 6 day(s), # 1 packet(s), 0 Refill(s), 09/10/22 10:40:00 EST, Pharmacy: [facility] #[id number], Sore throat, 170.2, cm, 09/04/22 9:41:00 EST, Height Start Date: 09/04/22 Stop Date: 09/10/22 Status: Ordered montelukast 10 mg oral tablet (10 sources) Leukotriene Receptor Antagonist Start: 07-11-2021 Singulair 10 mg oral tablet Dose : 10 mg = 1 tab(s), Oral, qPM, # 90 tab(s), 1 Refill(s), Pharmacy: [facility], 170.2, cm, 04/20/21 15:58:00 EDT, Height, kg, 04/20/21 15:58:00 EDT, Dosing Weight Start Date: 07/11/21 Status: Ordered Medication Dispense Status: Completed Quantity: 90.0 Unit: tab(s) Total Allowed Fills: 2 Fills Dispensed: 0 nortriptyline 75 mg oral capsule (10 sources) Tricyclic Antidepressant Start: 12-14-2019 nortriptyline 75 mg oral capsule Dose : 75 mg = 1 cap(s), Oral, qHS, # 30 cap(s), 0 Refill(s) Start Date: 12/14/19 Status: Ordered Medication Dispense Status: Completed Quantity: 30.0 Unit: cap(s) Total Allowed Fills: 1 Fills Dispensed: 0 oxymetazoline hydrochloride 0.5 mg/ml nasal spray (9 sources) Start: 03-09-2022 Afrin 0.05% nasal spray Dose = 1 spray(s), Intranasal, BID, # 30 mL, 0 Refill(s) Start Date: 03/09/22 Status: Ordered Medication Dispense Status: Completed Quantity: 30.0 Unit: mL Total Allowed Fills: 1 Fills Dispensed: 0 PEG-3350 with Electrolytes (Eqv-GoLYTELY) oral powder for reconstitution (1 source) Start: 01-13-2025 PEG-3350 with Electrolytes (Eqv-GoLYTELY) oral powder for reconstitution See Instructions, Take as directed starting 1 day before colonoscopy. Follow instructions as provided by your GI provider at [place]., # 1 EA, 0 Refill(s), [id number], 172.7, cm, 01/13/25 11:49:00 EDT, Height, kg, 01/13/25 11:49:00 EDT, Dosing Weight Start Date: 01/13/25 Status: Ordered Quantity: 1.0 Unit: EA Repeat number: 1 simvastatin 40 mg oral tablet (10 sources) HMG-CoA Reductase Inhibitor Start: 05-18-2025 simvastatin 40 mg oral tablet Dose : 40 mg = 1 tab(s), Oral, qHS, # 100 tab(s), 0 Refill(s), Pharmacy: [facility] , 172.7, cm, 01/25/25 12:32:00 EDT, Height, kg, 01/25/25 12:32:00 EDT, Dosing Weight Start Date: 05/18/25 Status: Ordered Medication Dispense Status: Completed Quantity: 100.0 Unit: tab(s) Total Allowed Fills: 1 Fills Dispensed: 0 Start: 04-15-2024 End: 06-19-2025 Zocor 80 mg oral tablet Dose : 80 mg = 1 tab(s), Oral, qHS, # 100 tab(s), 1 Refill(s), Pharmacy: [facility] , Type 2 diabetes mellitus, [...] qHS, # 90 tab(s), 3 Refill(s), Pharmacy: [facility] Type 2 diabetes mellitus, 172, cm, 10/10/23 15:56:00 EST, Height, kg, 10/10/23 15:56:00 EST, Dosing Weight Start Date: 10/10/23 Status: Ordered Start: 09-13-2022 Zocor 80 mg or al tablet Dose : 80 mg = 1 tab(s), Oral, qHS, # 90 tab(s), 3 Refill(s), [facility][id number], Type 2 diabetes mellitus, 171.45, cm, 09/13/22 10:54:00 EST, Height, kg, 09/13/22 10:54:00 EST, Dosing Weight Start Date: 09/13/22 Status: Ordered Start: 04-11-2022 Zocor 80 mg or al tablet Dose : 80 mg = 1 tab(s), Oral, qHS, # 90 tab(s), 1 Refill(s), Pharmacy: [facility], Type 2 diabetes mellitus, 170.2, cm, 03/09/22 14:54:00 EDT, Height, kg, 03/09/22 14:54:00 EDT, Dosing Weight Start Date: 04/11/22 Status: Ordered Start: 10-03-2021 Zocor 80 mg or al tablet Dose : 80 mg = 1 tab(s), Oral, qHS, # 90 tab(s), 0 Refill(s), Pharmacy: [facility], Type 2 diabetes mellitus, 172.7, cm, 10/03/21 7:56:00 EST, Height, kg, 10/03/21 7:56:00 EST, Dosing Weight Start Date: 10/03/21 Status: Ordered topiramate 50 mg oral tablet (7 sources) Start: 01-21-2023 topiramate 50 mg oral tablet Dose : 50 mg = 1 tab(s), Oral, qDay, 0 Refill(s) Start Date: 01/21/23 Status: Ordered Medication Dispense Status: Completed Total Allowed Fills: 1 Fills Dispensed: 0 Completed/Discontinued Medications Medication Drug Class(es) Dates Sig (Normalized) Sig (Original) 0.5 ml dulaglutide 3 mg/ml auto-injector (2 sources) GLP-1 Receptor Agonist Start: 12-27-2022 inject 0.5 mL by subcutaneous injection every week Trulicity Pen 1.5 mg/0.5 mL subcutaneous solution Dose : 1.5 mg = 0.5 mL, Subcutaneous, qWeek, rotate injection sites, # 2 mL, 2 Refill(s), 0.5 mL/Pen, Pharmacy: [facility], 171.45, cm, 12/20/22 16:00:00 EDT, Height Start Date: 12/27/22 Status: Ordered Start: 10-16-2022 End: 01-14-2023 inject 0.5 mL by subcutaneous injection every week Trulicity Pen 0.75 mg/0.5 mL subcutaneous solution Dose : 0.75 mg = 0.5 mL, Subcutaneous, qWeek, mail in rotate injection sites, # 6.5 mL, 0 Refill(s), 0.5 mL/Pen, Pharmacy: [facility], Type 2 diabetes mellitus, 171.45, cm, 09/13/22 10:54:00 EST, Height Start Date: 10/16/22 Stop Date: 01/14/23 Status: Ordered lisinopril 5 mg oral tablet (10 sources) Angiotensin Converting Enzyme Inhibitor Start: 04-15-2024 End: 06-19-2025 lisinopril 5 mg oral tablet Dose : 2.5 mg = 0.5 tab(s), Oral, qDay, # 50 tab(s), 1 Refill(s), Pharmacy: [facility] , Type 2 diabetes mellitus, 170.2, cm, 12/01/24 7:22:00 EST, Height, kg, 12/01/24 7:22:00 EST, Dosing Weight Start Date: 12/01/24 Stop Date: 06/19/25 Status: Ordered Medication Dispense Status: Completed Quantity: 50.0 Unit: tab(s) Total Allowed Fills: 2 Fills Dispensed: 0 Indications: Type 2 diabetes mellitus without complications; Start: 09-13-2022 lisinopril 5 m g oral tablet Dose : 2.5 mg = 0.5 tab(s), Oral, qDay, # 90 tab(s), 3 Refill(s), Pharmacy: [facility] #[id number], Type 2 diabetes mellitus, 171.45, cm, 09/13/22 10:54:00 EST, Height, kg, 09/13/22 10:54:00 EST, Dosing Weight Start Date: 09/13/22 Status: Ordered Start: 04-20-2021 lisinopril 5 m g oral tablet Dose : 5 mg = 1 tab(s), Oral, qDay, # 90 tab(s), 1 Refill(s), Pharmacy: [facility], 170.2, cm, 04/20/21 15:58:00 EDT, Height, kg, 04/20/21 15:58:00 EDT, Dosing Weight Start Date: 04/20/21 Status: Ordered metFORMIN hydrochloride 500 mg oral tablet (10 sources) Biguanide Start: 04-15-2024 End: 06-19-2025 MetFORMIN (Eqv-Glucophage XR) 500 mg oral tablet, EXTENDED RELEASE Dose : 500 mg = 1 tab(s), Oral, BID, # 200 tab(s), 1 Refill(s), Pharmacy: [facility] , 170.2, cm, 12/01/24 7:22:00 EST, Height, kg, 12/01/24 7:22:00 EST, Dosing Weight Start Date: 12/01/24 Stop Date: 06/19/25 Status: Ordered Medication Dispense Status: Completed Quantity: 200.0 Unit: tab(s) Total Allowed Fills: 2 Fills Dispensed: 0 Start: 10-10-2023 MetFORMIN (Eqv -Glucophage XR) 500 mg oral tablet, EXTENDED RELEASE Dose : 500 mg = 1 tab(s), Oral, BID, # 180 tab(s), 1 Refill(s), Pharmacy: [facility] [address], [facility] 172, cm, 10/10/23 15:56:00 EST, Height, kg, 01/11/24 15:56:00 EST, Dosing Weight Start Date: 10/10/23 [...] qDay, # 90 tab(s), 3 Refill(s), Pharmacy: [facility], Type 2 diabetes mellitus, 172, cm, 12/15/21 8:59:00 EDT, Height, kg, 12/15/21 8:59:00 EDT, Dosing Weight Start Date: 01/24/22 Status: Ordered Start: 10-03-2021 MetFORMIN (Eqv -Glucophage XR) 500 mg oral tablet, EXTENDED RELEASE Dose : 500 mg = 1 tab(s), Oral, qDay, # 90 tab(s), 0 Refill(s), Pharmacy: [facility], Type 2 diabetes mellitus, 172.7, cm, 10/03/21 7:56:00 EST, Height, kg, 10/03/21 7:56:00 EST, Dosing Weight Start Date: 10/03/21 Status: Ordered sertraline 100 mg oral tablet (10 sources) Serotonin Reuptake Inhibitor Start: 12-01-2024 End: 06-19-2025 sertraline 100 mg oral tablet Dose : 100 mg = 1 tab(s), Oral, qDay, # 100 tab(s), 1 Refill(s), Pharmacy: [facility] , Depression, 170.2, cm, 12/01/24 7:22:00 EST, Height, kg, 12/01/24 7:22:00 EST, Dosing Weight Start Date: 12/01/24 Stop Date: 06/19/25 Status: Ordered Medication Dispense Status: Completed Quantity: 100.0 Unit: tab(s) Total Allowed Fills: 2 Fills Dispensed: 0 Indications: Major depressive disorder, single episode, unspecified; Start: 04-15-2024 sertraline 100 mg oral tablet Dose : 100 mg = 1 tab(s), Oral, qDay, # 90 tab(s), 1 Refill(s), Pharmacy: [facility] Depression, 169, cm, 04/15/24 14:30:00 EDT, Height, kg, 04/15/24 14:22:00 EDT, Dosing Weight Start Date: 04/15/24 Status: Ordered Quantity: 90.0 Unit: tab(s) Repeat number: 2 Indication: Major depressive disorder, single episode, unspecified Start: 10-10-2023 sertraline 100 mg oral tablet Dose : 100 mg = 1 tab(s), Oral, qDay, # 90 tab(s), 1 Refill(s), Pharmacy: [facility] Depression, 172, cm, 10/10/23 15:56:00 EST, Height, kg, 10/10/23 15:56:00 EST, Dosing Weight Start Date: 10/10/23 Status: Ordered Start: 09-13-2022 Zoloft 100 mg oral tablet Dose : 100 mg = 1 tab(s), Oral, qDay, # 90 tab(s), 3 Refill(s), Pharmacy: [facility] #[id number], Depression, 171.45, cm, 09/13/22 10:54:00 EST, Height, kg, 09/13/22 10:54:00 EST, Dosing Weight Start Date: 09/13/22 Status: Ordered Start: 04-11-2022 Zoloft 100 mg oral tablet Dose : 100 mg = 1 tab(s), Oral, qDay, # 90 tab(s), 1 Refill(s), Pharmacy: [facility], Depression, 170.2, cm, 03/09/22 14:54:00 EDT, Height, kg, 03/09/22 14:54:00 EDT, Dosing Weight Start Date: 04/11/22 Status: Ordered Start: 10-03-2021 Zoloft 100 mg oral tablet Dose : 100 mg = 1 tab(s), Oral, qDay, # 90 tab(s), 0 Refill(s), Pharmacy: [facility], Depression, 172.7, cm, 10/03/21 7:56:00 EST, Height, kg, 10/03/21 7:56:00 EST, Dosing Weight Start Date: 10/03/21 Status: Ordered Problems Problem Classification Problem Date Documented Date Episodic/Chronic Asthma (11 sources) Asthma; Translations: [Mild intermittent asthma, uncomplicated] Onset: 5 01-15-2014 Chronic Chronic kidney disease (5 sources) Chronic kidney disease stage 2 04-15-2024 Chronic Diabetes mellitus with complications (4 sources) Chronic kidney disease due to type 2 diabetes mellitus 12-01-2024 Chronic Diabetes mellitus without complication (20 sources) Diabetes mellitus; Translations: [Type 2 diabetes mellitus] Onset: 7 10-07-2020 Chronic Disorders of lipid metabolism (10 sources) Hypercholesterolemia 01-15-2014 Chronic Headache; including migraine (10 sources) Migraine 06-15-2019 Chronic Mood disorders (10 sources) Depressive disorder 09-07-2014 Chronic Osteoarthritis (10 sources) Arthritis 10-19-2015 Chronic Otitis media and related conditions (10 sources) Eustachian tube disorder 06-15-2019 Episodi c Pleurisy; pneumothorax; pulmonary collapse (10 sources) Pneumothorax 09-07-2014 Episodic Comment on above: left Residual codes; unclassified (10 sources) Sleep apnea 10-19-2015 Chronic Superficial injury; contusion (10 sources) Corneal abrasion 01-15-2014 Episodic Unclassified (1 source) Unknown / UNK(Unknown) Onset: 7 Unclassified (20 sources) Patient encounter status 10-03-2021 Viral infection (6 sources) Disease caused by 2019-nCoV 07-29-2023 Results Test Name Value Interpretation Reference Range Facility XR CHEST 2 VIEWSon 5 XR CHEST 2 VIEWS ORIGINAL EXAMINATION: TWO XRAY VIEWS OF THE CHEST07/19/2025 7:48 am XR Chest two views COMPARISON: 02/07/2023 HISTORY: ORDERING SYSTEM PROVIDED HISTORY: Reason for Exam: [id number] Encounter for preprocedural respiratory examination, FINDINGS: No suspicious nodule, acute infiltrate, consolidation,mass, pneumothorax, pleural fluid, or vascular congestion is seen. Heart size and mediastinal contours are within normal limits for age and projection. No acute skeletal abnormality. IMPRESSION: No acute cardiopulmonary process. Interpreted by: Ottoniel Dallas MD Preliminary Report By: Ottoniel Dallas MD Electronically signed By Ottoniel aDllas MD Dictated Date: 07/20/2025 10:19:46 AM Prelim Date: 07/20/2025 10:20:40 AM Sign Date: 07/20/2025 10:20:40 AM Ordering Provider: ANGELA GOMEZ RP [facility] CT KNEE W/O CONTRAST RIGHTon 07-12-2025 CT KNEE W/O CONTRAST RIGHT ORIGINAL EXAMINATION: CT OF THE RIGHT KNEE WITHOUT CONTRAST 07/12/2025 7:59 am TECHNIQUE: CT of the right knee was performed without the administration of intravenous contrast. Multiplanar reformatted images are provided for review. Automated exposure control, iterative reconstruction, and/or weight based adjustment of the mA/kV was utilized to reduce the radiation dose to as low as reasonably achievable. MA KO protocol was performed with axial images through the right hip and right ankle. COMPARISON: None. HISTORY ORDERING SYSTEM PROVIDED HISTORY: Reason for Exam: OSTEOARTHRITIS RIGHT KNEE Chronic rt knee pain, no recent injury. AS1 protocol per order FINDINGS: There is no acute fracture or dislocation. There is no suspicious lytic or blastic osseous lesion. There is no aggressive periosteal reaction. Small fat containing right inguinal hernia. Prostate gland is enlarged measuring up to 5.5 cm in transverse dimension with prostatic calcifications. Moderate right femoroacetabular osteoarthritis most marked in the superolateral joint space with subchondral sclerosis and subchondral cysts. Pubic symphysis aligned. Moderate tricompartmental osteoarthritis of the right knee most advanced in the medial compartment with asymmetric joint space narrowing, subchondral sclerosis and vacuum phenomena. There is tricompartmental spurring. Trivial knee joint effusion. Lateral patellar subluxation. Os trigonum. Chronically fragmented ossicles at the tip of the medial malleolus. There is no evidence of solid or cystic soft tissue mass. IMPRESSION: 1. Moderate tricompartmental osteoarthritis of the right knee most advanced in the medial compartment. 2. Moderate right femoroacetabular osteoarthritis. 3. Prostatomegaly. Consider correlation with PSA. Interpreted by: Dayana Meyers Preliminary Report By: Dayana Meyers Electronically signed By Dayana Meyers Dictated Date: 07/12/2025 9:48:17 AM Prelim Date: 07/12/2025 9:57:29 AM Sign Date: 07/12/2025 9:57:29 AM Ordering Provider: ANGELA GOMEZ RP Normal [facility]ORY[facility]dered By: Emilee Mao on 06-01-2025 Albumin DL <= 20 mg/L (U) [Mass/Vol] 4.9 mg/L Invalid Interpretation Code AO ADM SS Albumin/Creatinine DL <= 20 mg/L (U) [Mass ratio] 7 mg/G Normal 0 - 30 mg/G AO Chemistry S Creatinine (U) [Mass/Vol] 67.2 mg/dL Invalid Interpretation Code AO ADM SS MALBRon 06-01-2025 U Creatinine 67.2 mg/dL Normal [facility] Comment on above: Performed By: #### C MP, ADIFF, LIPID, CBC, ANEU, PSA, GFR #### [address] [address] U Microalb 4.9 mg/L Normal [facility] Comment on above: Performed By: #### C MP, ADIFF, LIPID, CBC, ANEU, PSA, GFR #### [address] [address] U Ratio Alb/Cre 7 mg/G Normal 0-30 [facility] Comment on above: Performed By: #### C MP, ADIFF, LIPID, CBC, ANEU, PSA, GFR #### [address] [address] Absolute lymphocyte countOrd ered By: Katie Beatty on 04-22-2025 Lymphocytes Auto (Unsp spec) [#/Vol] 2.17 10*3/uL 0.83-4.51 [facility] Absolute neutrophil countOrd ered By: Katie Beatty on 04-22-2025 Neutrophils (Bld) [#/Vol] 3.5 10*3/uL 2.0-7.7 [facility] Automated lymphocyte count a s percentage of total leukocytesOrdered By: Katie Beatty on 04-22-2025 Lymphocytes/100 WBC Auto (Unsp spec) 33.5 % 19- [facility] Basophil percentageOrdered B y: Katie Beatty on 04-22-2025 Basophils/100 WBC (Bld) 1.1 % High 0-1 [facility] CBC W/Diff, Automatedon 03-31 Absolute Lymph 2.17 X10 3/uL Normal 0.83-4.51 [facility] Comment on above: Performed By: #### L 100.0100 #### [facility] [address] [place], [address] Absolute Neut 3.5 X10 3/uL Normal 2.0-7.7 [facility] Comment on above: Performed By: #### L 100.0100 #### [facility] [address] [place], [address] Basophils/100 WBC (Bld) 1.1 % High 0-1 [facility] Comment on above: Performed By: #### L 100.0100 #### [facility] [address] [place], [address] Eosinophils/100 WBC (Bld) 1.4 % Normal 0-5 [facility] Comment on above: Performed By: #### L 100.0100 #### [facility] [address] [place], [address] Erythrocyte distribution width (RBC) [Ratio] 12.3 % Normal 11.6-14.6 [facility] Comment on above: Performed By: #### L 100.0100 #### [facility] [address] [place], [address] Hematocrit (Bld) [Volume fraction] 40.7 % Normal 40-54 [facility] Comment on above: Performed By: #### L 100.0100 #### [facility] [address] [place], [address] Hemoglobin (Bld) [Mass/Vol] 14.1 g/dL Normal 13.0-16.5 [facility] Comment on above: Performed By: #### L 100.0100 #### [facility] [address] [place], [address] IG% 0.300 Normal 0.0-0.9 [facility] Comment on above: Result Comment: IG% - Immature Granulocytes (promyelocytes, myelocytes and metamyelocytes) > 1% indicates that a LEFT SHIFT is Present. Performed By: #### L 100.0100 #### [facility] [address] [place], [address] Lymphocytes/100 WBC (Bld) 33.5 % Normal 19-41 [facility] Comment on above: Performed By: #### L 100.0100 #### [facility] [address] [place], [address] MCH (RBC) [Entitic mass] 32.9 pg High 27.0-32.0 [facility] Comment on above: Performed By: #### L 100.0100 #### [facility] [address] [place], [address] MCHC (RBC) [Mass/Vol] 34.6 g/dL Normal 32-36 [facility] Comment on above: Performed By: #### L 100.0100 #### [facility] [address] [place], [address] MCV (RBC) [Entitic vol] 95.1 fL High 80-94 [facility] Comment on above: Performed By: #### L 100.0100 #### [facility] [address] [place], [address] Monocytes/100 WBC (Bld) 10.3 % High 0-10 [facility] Comment on above: Performed By: #### L 100.0100 #### [facility] [address] [place], [address] Neutrophils/100 WBC (Bld) 53.4 % Normal 47-70 [facility] Comment on above: Performed By: #### L 100.0100 #### [facility] [address] [place], [address] Nucleated RBC (Bld) [#/Vol] 0 10*3/uL Normal 0-5 [facility] Comment on above: Performed By: #### L 100.0100 #### [facility] [address] [place], [address] Platelet mean volume (Bld) [Entitic vol] 10.6 fL Normal 6.2-12.0 [facility] Comment on above: Performed By: #### L 100.0100 #### [facility] [address] [place], [address] Platelets (Bld) [#/Vol] 258 10*3/uL Normal 150-450 [facility] Comment on above: Performed By: #### L 100.0100 #### [facility] [address] [place], [address] RBC (Bld) [#/Vol] 4.28 10*6/uL Low 4.6-6.2 [facility] Comment on above: Performed By: #### L 100.0100 #### [facility] [address] [place], [address] RDW SD 42.5 fl Normal 35.1-43.9 [facility] Comment on above: Performed By: #### L 100.0100 #### [facility] [address] [place], [address] WBC (Bld) [#/Vol] 6.5 10*3/uL Normal 4.4-11.0 [facility] Comment on above: Performed By: #### L 100.0100 #### [facility] [address] [place], [address] Eosinophil percentageOrdered By: Katie Beatty on 04-22-2025 Eosinophils/100 WBC (Bld) 1.4 % 0-5 [facility] Erythrocyte distribution wid th ratioOrdered By: Katie Beatty on 04-22-2025 Erythrocyte distribution width (RBC) [Ratio] 12.3 % 11.6-14.6 [facility] Erythrocyte distribution wid th standard deviationOrdered By: Katie Beatty on 04-22-2025 Erythrocyte distribution width (RBC) [Ratio] 42.5 fl 35.1-43.9 [facility] Hematocrit Auto (Bld) [Volum e fraction]Ordered By: Katie Beatty on 04-22-2025 Hematocrit (Bld) [Volume fraction] 40.7 % 40-54 [facility] Hemoglobin measurementOrdere d By: Katie Beatty on 04-22-2025 Hemoglobin (Bld) [Mass/Vol] 14.1 g/dL 13.0-16.5 [facility] Immature granulocytes/100 WB C Auto (Bld)Ordered By: Katie Beatty on 04-22-2025 Immature granulocytes/100 WBC (Bld) 0.300 % 0.0-0.9 [facility] Comment on above: IG% - Immature Granu locytes (promyelocytes, myelocytes and metamyelocytes) > 1% indicates that a LEFT SHIFT is Present. MCV (mean corpuscular volume ) determinationOrdered By: Katie Beatty on 04-22-2025 MCV (RBC) [Entitic vol] 95.1 fL High 80-94 [facility] Mean corpuscular hemoglobin (MCH) determinationOrdered By: Katie Beatty on 04-22-2025 MCH (RBC) [Entitic mass] 32.9 pg High 27.0-32.0 [facility] Mean corpuscular hemoglobin concentration (MCHC) determinationOrdered By: Katie Beatty 04-22-2025 MCHC (RBC) [Mass/Vol] 34.6 g/dL 32-36 [facility] Mean platelet volume determi nationOrdered By: Katie Beatty on 04-22-2025 Platelet mean volume (Bld) [Entitic vol] 10.6 fL 6.2-12.0 [facility] Monocyte percentageOrdered B y: Katie Beatty on 04-22-2025 Monocytes/100 WBC (Bld) 10.3 % High 0-10 [facility] Neutrophil percentageOrdered By: Katie Beatty on 04-22-2025 Neutrophils/100 WBC (Bld) 53.4 % 47-70 [facility] Nucleated red blood cell per centageOrdered By: Katie Beatty on 04-22-2025 Nucleated RBC/100 WBC (Bld) [Ratio] 0 % 0-5 [facility] Platelet countOrdered By: Tanisha Beatty on 04-22-2025 Platelets (Bld) [#/Vol] 258 10*3/uL 150-450 [facility] RBC Auto (Bld) [#/Vol]Ordere d By: Katie Beatty on 04-22-2025 RBC (Bld) [#/Vol] 4.28 10*6/uL Low 4.6-6.2 [facility] White blood cell (WBC) count Ordered By: Katie Beatty on 04-22-2025 WBC (Bld) [#/Vol] 6.5 10*3/uL 4.4-11.0 [facility] Final Surgical Pathology Rep santos 01-27-2025 Final Surgical Pathology Report . Pathology Reports Accession: Collected Date/Time: Received Date/Time: Pathologist: [id number] 01/25/2025 13:07 EDT 01/26/2025 08:41 EDT MD LUIS ZAMORA Final Surgical Pathology Report DIAGNOSIS: RECTUM, BIOPSY: - HYPERPLASTIC POLYP CLINICAL INFORMATION: ENCOUNTER FOR SCREENING FOR INTESTINAL INFECTIOUS DISEASES Procedure: COLONOSCOPY Preoperative diagnosis: SCREENING Postoperative diagnosis: SCREENING SPECIMEN: A RECTAL POLYP GROSS DESCRIPTION: All parts labelled with patient name and [id number] received in formalin labeled "rectal polyp" is 1 turpin-brown tissue fragment measuring 0.4 x 0.2 cm. TS-1 Ariana Hendrickson, Grossing Director Critical Care/ Dr. Dionicio Thompson, Pathologist Performed by Ariana Hendrickson MICROSCOPIC DESCRIPTION: The microscopic examination is performed, except in the case of Gross Only. Verified by Pathology Report verified by [facility] LUIS ZAMORA MD Sign out Date: 01/27/2025 15:39 Performing Lab: [facility], [address] [place] [address] Pathology Dept Disclaimer If ancillary studies were utilized, the following Laboratory Developed Test (LDT) disclaimer will apply: Under CLIA requirements, [facility] is qualified to perform high complexity testing. For all ancillary stains, positive and negative controls stain appropriately. Performance characteristics of immunohistochemical and chromogenic in-situ hybridization tests have been determined by [facility]. These tests are used for clinical purposes, They should not be regarded as investigational or for research. . Normal [facility]ATORYOrdered By: Ervin Lopez on 01-25-2025 Glucose [Mass/Vol] 68 mg/dL Low 82 - 115 mg/dL [facility] Work Phone: .Auto Diffon 11-24-2024 Basophil, Absolute 0.1 10 3/mcL Normal 0.0-0.2 [facility] Comment on above: Performed By: #### C MP, ADIFF, LIPID, CBC, ANEU, PSA, GFR #### [address] [address] Basophils/100 WBC (Bld) 0.8 % Normal 0.0-2.5 [facility] Comment on above: Performed By: #### C MP, ADIFF, LIPID, CBC, ANEU, PSA, GFR #### [address] [address] Eosinophil, Absolute 0.1 10 3/mcL Normal 0.0-0.7 [facility] Comment on above: Performed By: #### C MP, ADIFF, LIPID, CBC, ANEU, PSA, GFR #### [address] [address] Eosinophils/100 WBC (Bld) 1.2 % Normal 0.0-7.0 [facility] Comment on above: Performed By: #### C MP, ADIFF, LIPID, CBC, ANEU, PSA, GFR #### [address] [address] Lymphocyte, Absolute 2.0 10 3/mcL Normal 0.9-4.3 [facility] Comment on above: Performed By: #### C MP, ADIFF, LIPID, CBC, ANEU, PSA, GFR #### [address] [address] Lymphocytes/100 WBC (Bld) 28.0 % Normal 20.0-40.0 [facility] Comment on above: Performed By: #### C MP, ADIFF, LIPID, CBC, ANEU, PSA, GFR #### [address] [address] Monocyte, Absolute 0.6 10 3/mcL Normal 0.1-1.4 [facility] Comment on above: Performed By: #### C MP, ADIFF, LIPID, CBC, ANEU, PSA, GFR #### [address] [address] Monocytes/100 WBC (Bld) 8.2 % Normal 2.0-13.0 [facility] Comment on above: Performed By: #### C MP, ADIFF, LIPID, CBC, ANEU, PSA, GFR #### [address] [address] Neutrophils/100 WBC (Bld) 61.8 % Normal 50.0-75.0 [facility] Comment on above: Performed By: #### C MP, ADIFF, LIPID, CBC, ANEU, PSA, GFR #### [address] [address] .GFRon 11-24-2024 Estimated Glomerular Filtration Rate 64 ml/min/1.73sqm Normal [facility] Comment on above: Result Comment: Stages [...] calculate the eGFR results. Performed By: #### C MP, ADIFF, LIPID, CBC, ANEU, PSA, GFR #### [place] [address] [place], [place] [address] .NEUABSon 11-24-2024 Neutrophil, Absolute 4.4 10 3/mcL Normal 2.3-8.1 [facility] Comment on above: Performed By: #### C MP, ADIFF, LIPID, CBC, ANEU, PSA, GFR #### [address] [address] CBCon 11-24-2024 Erythrocyte distribution width (RBC) [Ratio] 13.0 % Normal 11.5-15.5 [facility] Comment on above: Performed By: #### C MP, ADIFF, LIPID, CBC, ANEU, PSA, GFR #### [address] [address] Hematocrit (Bld) [Volume fraction] 41.8 % Normal 40.0-52.0 [facility] Comment on above: Performed By: #### C MP, ADIFF, LIPID, CBC, ANEU, PSA, GFR #### [address] [address] Hgb 14.5 G/dL Normal 13.0-17.5 [facility] Comment on above: Performed By: #### C MP, ADIFF, LIPID, CBC, ANEU, PSA, GFR #### [address] [address] MCH (RBC) [Entitic mass] 33.2 pg High 27.0-33.0 [facility] Comment on above: Performed By: #### C MP, ADIFF, LIPID, CBC, ANEU, PSA, GFR #### [address] [address] MCHC 34.6 G/dL Normal 32.0-36.0 [facility] Comment on above: Performed By: #### C MP, ADIFF, LIPID, CBC, ANEU, PSA, GFR #### [address] [address] MCV (RBC) [Entitic vol] 95.8 fL Normal 81.0-100.0 [facility] Comment on above: Performed By: #### C MP, ADIFF, LIPID, CBC, ANEU, PSA, GFR #### [address] [address] Platelet 243 10 3/mcL Normal 150-450 [facility] Comment on above: Performed By: #### C MP, ADIFF, LIPID, CBC, ANEU, PSA, GFR #### [address] [address] Platelet mean volume (Bld) [Entitic vol] 8.6 fL Normal 6.4-10.5 [facility] Comment on above: Performed By: #### C MP, ADIFF, LIPID, CBC, ANEU, PSA, GFR #### [address] [address] RBC 4.36 10 6/mcL Low 4.50-6.00 [facility] Comment on above: Performed By: #### C MP, ADIFF, LIPID, CBC, ANEU, PSA, GFR #### [address] [address] WBC 7.1 10 3/mcL Normal 4.5-10.8 [facility] Comment on above: Performed By: #### C MP, ADIFF, LIPID, CBC, ANEU, PSA, GFR #### [address] [address] CMPon 11-24-2024 Albumin Level 4.1 G/dL Normal 3.4-4.8 [facility] Comment on above: Performed By: #### C MP, ADIFF, LIPID, CBC, ANEU, PSA, GFR #### [address] [address] Albumin/Globulin [Mass ratio] 1.4 {ratio} Normal 1.1-2.5 [facility] Comment on above: Performed By: #### C MP, ADIFF, LIPID, CBC, ANEU, PSA, GFR #### [address] [address] ALP [Catalytic activity/Vol] 84 U/L Normal 40-135 [facility] Comment on above: Performed By: #### C MP, ADIFF, LIPID, CBC, ANEU, PSA, GFR #### [address] [address] ALT [Catalytic activity/Vol] 23 U/L Normal 16-63 [facility] Comment on above: Performed By: #### C MP, ADIFF, LIPID, CBC, ANEU, PSA, GFR #### [address] [address] AST [Catalytic activity/Vol] 12 U/L Normal 10-40 [facility] Comment on above: Performed By: #### C MP, ADIFF, LIPID, CBC, ANEU, PSA, GFR #### [address] [address] Bili Total 0.8 mg/dL Normal 0.2-1.0 [facility] Comment on above: Result Comment: Use of this assay is not recommended for patients undergoing treatment with eltrombopag due to the potential for falsely elevated results. Performed By: #### C MP, ADIFF, LIPID, CBC, ANEU, PSA, GFR #### [place] [id number] BUN/Creatinine Ratio 17 ratio Normal 7-27 [facility] Comment on above: Performed By: #### C MP, ADIFF, LIPID, CBC, ANEU, PSA, GFR #### [address] [address] Calcium [Mass/Vol] 9.1 mg/dL Normal 8.4-10.2 [facility] Comment on above: Performed By: #### C MP, ADIFF, LIPID, CBC, ANEU, PSA, GFR #### [address] [address] Chloride [Moles/Vol] 104 mmol/L Normal 98-107 [facility] Comment on above: Performed By: #### C MP, ADIFF, LIPID, CBC, ANEU, PSA, GFR #### [address] [address] CO2 [Moles/Vol] 26 mmol/L Normal 23-31 [facility] Comment on above: Performed By: #### C MP, ADIFF, LIPID, CBC, ANEU, PSA, GFR #### [address] [place] [address] Creatinine [Mass/Vol] 1.26 mg/dL Normal 0.70-1.30 [facility] Comment on above: Result Comment: Test ing performed on Siemens Dimension EXL analyzer using a modified kinetic Maude technique. Performed By: #### C MP, ADIFF, LIPID, CBC, ANEU, PSA, GFR #### [address] [address] Electrolyte Balance 7.0 mEq/L Normal 4.0-15.0 [facility] Comment on above: Performed By: #### C MP, ADIFF, LIPID, CBC, ANEU, PSA, GFR #### [address] [address] Globulin 3.0 G/dL Normal 1.5-3.8 [facility] Comment on above: Performed By: #### C MP, ADIFF, LIPID, CBC, ANEU, PSA, GFR #### [address] [address] Glucose [Mass/Vol] 128 mg/dL High 80-115 [facility] Comment on above: Performed By: #### C MP, ADIFF, LIPID, CBC, ANEU, PSA, GFR #### [address] [address] Potassium [Moles/Vol] 4.3 mmol/L Normal 3.5-5.1 [facility] Comment on above: Performed By: #### C MP, ADIFF, LIPID, CBC, ANEU, PSA, GFR #### [address] [address] Sodium [Moles/Vol] 137 mmol/L Normal 136-145 [facility] Comment on above: Performed By: #### C MP, ADIFF, LIPID, CBC, ANEU, PSA, GFR #### [address] [address] Total Protein 7.1 G/dL Normal 6.4-8.2 [facility] Comment on above: Performed By: #### C MP, ADIFF, LIPID, CBC, ANEU, PSA, GFR #### [facility] [address] [place], [place] [address] Urea nitrogen [Mass/Vol] 22 mg/dL High 7-18 [facility] Comment on above: Performed By: #### C MP, GLENNIFF, LIPID, CBC, ANEU, PSA, GFR #### [facility] [address] [place], [place] [address] LABORATORYOrdered By: SYSTEM SYSTEM on 11-24-2024 Albumin [...] Cholesterol [Mass/Vol] 158 mg/dL Normal 0 - 2 00 mg/dL AO ADM SS Comment on above: [...] 11-24-2024 Cholesterol [Mass/Vol] 158 mg/dL Normal 0-200 [facility] Comment on above: Result Comment: Chol esterol Reference Interval: Less than 200 Desirable 200-239 Borderline high risk 240 and above High risk Performed By: #### C MP, ADIFF, LIPID, CBC, ANEU, PSA, GFR #### [address] [address] Cholesterol in HDL [Mass/Vol] 62 mg/dL High 40-60 [facility] Comment on above: Performed By: #### C MP, ADIFF, LIPID, CBC, ANEU, PSA, GFR #### [address] [address] Cholesterol in LDL [Mass/Vol] 81 mg/dL Normal 0-130 [facility] Comment on above: Performed By: #### C MP, ADIFF, LIPID, CBC, ANEU, PSA, GFR #### [address] [address] Triglyceride [Mass/Vol] 74 mg/dL Normal 0-150 [facility] Comment on above: Result Comment: Trig lyceride Reference Interval: Less than 150 Normal 150-199 Borderline high risk 200-499 High risk 500 or higher Very high risk Performed By: #### C MP, ADIFF, LIPID, CBC, ANEU, PSA, GFR #### [address] [address] PSAon 11-24-2024 Prostate Specific Antigen 1.67 ng/mL Normal 0.00-4.00 [facility] Comment on above: Performed By: #### C MP, ADIFF, LIPID, CBC, ANEU, PSA, GFR #### [address] [address] MALBRon 01-10-2024 U Creatinine 107.7 mg/dL Normal 39.0-259.0 [facility] ([place]) Comment on above: Performed By: #### M ALBR #### [address] [address] U Microalb 1139 mcg/dL Normal [facility] ([place]) Comment on above: Performed By: #### M ALBR #### [address] [address] U Ratio Alb/Cre 11 mcg/mg Normal 0-30 [facility] ([place]) Comment on above: Performed By: #### M ALBR #### [address] [address] LABORATORYOrdered By: Javad Silvestre on 01-09-2024 Albumin DL <= 20 mg/L (U) [Mass/Vol] 1139 mcg/dL Invalid Interpretation Code AO ADM SS Albumin/Creatinine DL <= 20 mg/L (U) [Mass ratio] 11 mcg/mg Normal 0 - 30 mcg/mg AO ADM SS Creatinine (U) [Mass/Vol] 107.7 mg/dL Normal 39.0 - 259.0 mg/dL AO ADM SS .Auto Diffon 10-03-2023 Basophil, Absolute 0.1 10 3/mcL Normal 0.0-0.2 [facility] ([place]) Comment on above: Performed By: #### C BC, LIPID, ADIFF, PSA, ANEU, CMP, GFR #### [address] [address] Basophils/100 WBC (Bld) 0.8 % Normal 0.0-2.5 [facility] ([place]) Comment on above: Performed By: #### C BC, LIPID, ADIFF, PSA, ANEU, CMP, GFR #### [address] [address] Eosinophil, Absolute 0.1 10 3/mcL Normal 0.0-0.4 [facility] ([place]) Comment on above: Performed By: #### C BC, LIPID, ADIFF, PSA, ANEU, CMP, GFR #### [address] [address] Eosinophils/100 WBC (Bld) 1.3 % Normal 0.0-7.0 [facility] ([place]) Comment on above: Performed By: #### C BC, LIPID, ADIFF, PSA, ANEU, CMP, GFR #### [address] [address] Lymphocyte, Absolute 2.3 10 3/mcL Normal 0.8-3.9 [facility] ([place]) Comment on above: Performed By: #### C BC, LIPID, ADIFF, PSA, ANEU, CMP, GFR #### [address] [address] Lymphocytes/100 WBC (Bld) 33.5 % Normal 10.0-50.0 [facility] ([place]) Comment on above: Performed By: #### C BC, LIPID, ADIFF, PSA, ANEU, CMP, GFR #### [address] [address] Monocyte, Absolute 0.6 10 3/mcL Normal 0.2-1.0 [facility] ([place]) Comment on above: Performed By: #### C BC, LIPID, ADIFF, PSA, ANEU, CMP, GFR #### [address] [address] Monocytes/100 WBC (Bld) 9.0 % Normal 1.7-13.0 [facility] ([place]) Comment on above: Performed By: #### C BC, LIPID, ADIFF, PSA, ANEU, CMP, GFR #### [address] [address] Neutrophils/100 WBC (Bld) 55.4 % Normal 37.0-80.0 [facility] ([place]) Comment on above: Performed By: #### C BC, LIPID, ADIFF, PSA, ANEU, CMP, GFR #### [address] [address] .GFRon 10-03-2023 GFR Non- 62 ml/min/1.73sqm Normal [facility] ([place]) Comment on above: Result Comment: GFR Population [...] LIPID, ADIFF, PSA, ANEU, CMP, GFR #### [address] [address] GFR 75 ml/min/1.73sqm Normal [facility] ([place]) Comment on above: Result Comment: GFR Population [...] LIPID, ADIFF, PSA, ANEU, CMP, GFR #### [address] [address] .NEUABSon 10-03-2023 Neutrophil, Absolute 3.8 10 3/mcL Normal 2.9-6.2 [facility] ([place]) Comment on above: Performed By: #### C BC, LIPID, ADIFF, PSA, ANEU, CMP, GFR #### [address] [address] CBCon 10-03-2023 Erythrocyte distribution width (RBC) [Ratio] 13.2 % Normal 11.5-14.5 [facility] ([place]) Comment on above: Performed By: #### C BC, LIPID, ADIFF, PSA, ANEU, CMP, GFR #### [address] [address] Hematocrit (Bld) [Volume fraction] 41.5 % Low 42.0-52.0 [facility] ([place]) Comment on above: Performed By: #### C BC, LIPID, ADIFF, PSA, ANEU, CMP, GFR #### [address] [address] Hgb 14.4 G/dL Normal 14.0-18.0 [facility] ([place]) Comment on above: Performed By: #### C BC, LIPID, ADIFF, PSA, ANEU, CMP, GFR #### [place] [id number] MCH (RBC) [Entitic mass] 33.1 pg High 27.0-31.2 [facility] ([place]) Comment on above: Performed By: #### C BC, LIPID, ADIFF, PSA, ANEU, CMP, GFR #### [place] [address] MCHC 34.8 G/dL Normal 31.8-35.4 [facility] ([place]) Comment on above: Performed By: #### C BC, LIPID, ADIFF, PSA, ANEU, CMP, GFR #### [address] [address] MCV (RBC) [Entitic vol] 95.1 fL High 80.0-94.0 [facility] ([place]) Comment on above: Performed By: #### C BC, LIPID, ADIFF, PSA, ANEU, CMP, GFR #### [address] [address] Platelet 237 10 3/mcL Normal 130-400 [facility] ([place]) Comment on above: Performed By: #### C BC, LIPID, ADIFF, PSA, ANEU, CMP, GFR #### [address] [address] Platelet mean volume (Bld) [Entitic vol] 7.9 fL Normal 7.4-10.4 [facility] ([place]) Comment on above: Performed By: #### C BC, LIPID, ADIFF, PSA, ANEU, CMP, GFR #### [place] [id number] RBC 4.37 10 6/mcL Normal 4.04-6.13 [facility] ([place]) Comment on above: Performed By: #### C BC, LIPID, ADIFF, PSA, ANEU, CMP, GFR #### [address] [address] WBC 6.9 10 3/mcL Normal 4.6-10.8 [facility] ([place] Comment on above: Performed By: #### C BC, LIPID, ADIFF, PSA, ANEU, CMP, GFR #### [address] [address] CMPon 10-03-2023 Albumin Level 3.8 G/dL Normal 3.4-4.8 [facility] ([place]) Comment on above: Performed By: #### C BC, LIPID, ADIFF, PSA, ANEU, CMP, GFR #### [address] [address] Albumin/Globulin [Mass ratio] 1.3 {ratio} Normal 1.1-2.5 [facility] ([place] Comment on above: Performed By: #### C BC, LIPID, ADIFF, PSA, ANEU, CMP, GFR #### [place] [id number] ALP [Catalytic activity/Vol] 79 U/L Normal 40-135 [facility] ([place] Comment on above: Performed By: #### C BC, LIPID, ADIFF, PSA, ANEU, CMP, GFR #### [address] [address] ALT [Catalytic activity/Vol] 29 U/L Normal 16-63 [facility] ([place] Comment on above: Performed By: #### C BC, LIPID, ADIFF, PSA, ANEU, CMP, GFR #### [address] [address] AST [Catalytic activity/Vol] 14 U/L Normal 10-40 [facility] ([place]) Comment on above: Performed By: #### C BC, LIPID, ADIFF, PSA, ANEU, CMP, GFR #### [place] [id number] Bili Total 0.9 mg/dL Normal 0.2-1.0 [facility] ([place]) Comment on above: Result Comment: Use of this assay is not recommended for patients undergoing treatment with eltrombopag due to the potential for falsely elevated results. Performed By: #### C BC, LIPID, ADIFF, PSA, ANEU, CMP, GFR #### [address] [address] BUN/Creatinine Ratio 15 ratio Normal 7-27 [facility] ([place]) Comment on above: Performed By: #### C BC, LIPID, ADIFF, PSA, ANEU, CMP, GFR #### [address] [address] Calcium [Mass/Vol] 9.0 mg/dL Normal 8.4-10.2 [facility] ([place]) Comment on above: Performed By: #### C BC, LIPID, ADIFF, PSA, ANEU, CMP, GFR #### [address] [address] Chloride [Moles/Vol] 102 mmol/L Normal 98-107 [facility] ([place] Comment on above: Performed By: #### C BC, LIPID, ADIFF, PSA, ANEU, CMP, GFR #### [address] [address] CO2 [Moles/Vol] 27 mmol/L Normal 23-31 [facility] ([place]) Comment on above: Performed By: #### C BC, LIPID, ADIFF, PSA, ANEU, CMP, GFR #### [address] [address] Creatinine [Mass/Vol] 1.19 mg/dL Normal 0.70-1.30 [facility] ([place]) Comment on above: Performed By: #### C BC, LIPID, ADIFF, PSA, ANEU, CMP, GFR #### [address] [address] Electrolyte Balance 9.0 mEq/L Normal 4.0-15.0 [facility] ([place]) Comment on above: Performed By: #### C BC, LIPID, ADIFF, PSA, ANEU, CMP, GFR #### [address] [address] Globulin 3.0 G/dL Normal [facility] ([place]) Comment on above: Performed By: #### C BC, LIPID, ADIFF, PSA, ANEU, CMP, GFR #### [address] [address] Glucose [Mass/Vol] 132 mg/dL High 80-115 [facility] ([place]) Comment on above: Performed By: #### C BC, LIPID, ADIFF, PSA, ANEU, CMP, GFR #### [address] [address] Potassium [Moles/Vol] 5.2 mmol/L High 3.5-5.1 [facility] ([place]) Comment on above: Performed By: #### C BC, LIPID, ADIFF, PSA, ANEU, CMP, GFR #### [address] [address] Sodium [Moles/Vol] 138 mmol/L Normal 136-145 [facility] ([place]) Comment on above: Performed By: #### C BC, LIPID, ADIFF, PSA, ANEU, CMP, GFR #### [address] [address] Total Protein 6.8 G/dL Normal 6.4-8.2 [facility] ([place]) Comment on above: Performed By: #### C BC, LIPID, ADIFF, PSA, ANEU, CMP, GFR #### [address] [address] Urea nitrogen [Mass/Vol] 18 mg/dL Normal 7-18 [facility] ([place]) Comment on above: Performed By: #### C BC, LIPID, ADIFF, PSA, ANEU, CMP, GFR #### [address] [address] LIPIDon 10-03-2023 Cholesterol [Mass/Vol] 190 mg/dL Normal 0-200 [facility] ([place]) Comment on above: Result Comment: Chol esterol Reference Interval: Less than 200 Desirable 200-239 Borderline high risk 240 and above High risk Performed By: #### C BC, LIPID, ADIFF, PSA, ANEU, CMP, GFR #### [address] [address] Cholesterol in HDL [Mass/Vol] 60 mg/dL Normal 40-60 [facility] ([place]) Comment on above: Performed By: #### C BC, LIPID, ADIFF, PSA, ANEU, CMP, GFR #### [address] [address] Cholesterol in LDL [Mass/Vol] 112 mg/dL Normal 0-130 [facility] ([place]) Comment on above: Performed By: #### C BC, LIPID, ADIFF, PSA, ANEU, CMP, GFR #### [place] [address] [place], [place] [address] Triglyceride [Mass/Vol] 88 mg/dL Normal 0-150 [facility] ([place]) Comment on above: Result Comment: Trig lyceride Reference Interval: Less than 150 Normal 150-199 Borderline high risk 200-499 High risk 500 or higher Very high risk Performed By: #### C BC, LIPID, ADIFF, PSA, ANEU, CMP, GFR #### [address] [address] PSAon 10-03-2023 Prostate Specific Antigen 1.72 ng/mL Normal 0.00-4.00 [facility] ([place]) Comment on above: Performed By: #### C BC, LIPID, ADIFF, PSA, ANEU, CMP, GFR #### [address] [address] XR CHEST 2 VIEWSon 3 XR CHEST [...] Date: 02/07/2023 9:56:08 PM Ordering Provider: NARA PIPER [facility] ([place]) LABORATORYOrdered By: Maria G Wolff on 12-20-2022 [...] Code AO Chemistry S LABORATORYOrdered By: Ioana Davis on 11-27-2021 Glucose [Mass/Vol] 137 mg/dL Invalid Interpretation Code 70 - 110 mg/dL [facility] Work Phone: XR CHEST 2 VIEWSon 7 XR CHEST 2 VIEWS ORIGINALClinical history: Preoperative evaluation. COMPARISON: Chest x-ray on December 18, 2016. PA and lateral radiographs of the chest were obtained. The heart is normal in size and configuration. The mediastinum and hilar structures are normal. The lungs are clear, and the vascularity is normal. The pleural surfaces, diaphragms, and bony structures are unremarkable. IMPRESSION: Normal chest. Interpreted By: Jono Saldivarreliminary Report By: Jono Saldivar MDElectronically Signed By: Jono Saldivar MD Dictated Date: 04/06/2017 7:55:13 AM Prelim Date: 04/06/2017 7:55:13 AM Sign Date: 04/06/2017 7:56:21 AM Normal [facility] Vital Signs Date Time Vital Sign Value Performing Clinician Sisi daniel 01-25-2025 13:20-0400 Diastolic Blood Pressure Non-Invasive 77 mm[Hg] ANASTASIA ABEL DO [facility] 01-25-2025 13:20-0400 Heart rate 78 /min ANASTASIA ABEL DO [facility] 01-25-2025 13:20-0400 Respiratory rate 18 /min ANASTASIA ABEL DO [facility] 01-25-2025 13:20-0400 Systolic Blood Pressure Non-Invasive 125 mm[Hg] ANASTASIA ABEL DO [facility] 01-25-2025 13:14-0400 Body temperature 97.88 [degF] ANASTASIA ABEL DO [facility] 01-25-2025 13:14-0400 Diastolic Blood Pressure Non-Invasive 74 mm[Hg] ANASTASIA ABEL DO [facility] 01-25-2025 13:14-0400 Heart rate 88 /min ANASTASIA ABEL DO [facility] 01-25-2025 13:14-0400 Respiratory rate 18 /min ANASTASIA ABEL DO [facility] 01-25-2025 13:14-0400 Systolic Blood Pressure Non-Invasive 108 mm[Hg] ANASTASIA ABEL DO [facility] 01-25-2025 13:05-0400 Diastolic Blood Pressure Non-Invasive 69 mm[Hg] ANASTASIA ABEL DO [facility] 01-25-2025 13:05-0400 Heart rate 79 /min ANASTASIA ABEL DO [facility] 01-25-2025 13:05-0400 Respiratory Rate - Anes 22 br/min ANASTASIA ABEL DO [facility] 01-25-2025 13:05-0400 Systolic Blood Pressure Non-Invasive 114 mm[Hg] ANASTASIA ABEL DO [facility] 01-25-2025 13:00-0400 Respiratory Rate - Anes 20 br/min ANASTASIA ABEL DO [facility] 01-25-2025 12:55-0400 Respiratory Rate - Anes 16 br/min ANASTASIA ABEL DO [facility] 01-25-2025 12:32-0400 Body height 172.7 cm ANASTASIA ABEL DO [facility] 01-25-2025 12:32-0400 Body weight 90 kg ANASTASIA ABEL DO [facility] 01-25-2025 12:32-0400 Body weight 30.18 kg/m2 ANASTASIA ABEL DO [facility] 01-25-2025 12:22-0400 Body height 172.7 cm ANASTASIA ABEL DO [facility] 01-25-2025 12:22-0400 Body temperature 97.52 [degF] ANASTASIA ABEL DO [facility] 01-25-2025 12:22-0400 Body weight 90 kg ANASTASIA BERNALY DO [facility] 01-25-2025 12:22-0400 Heart rate 72 /min ANASTASIA BERNALY DO [facility] 01-25-2025 12:22-0400 Respiratory rate 15 /min ANASTASAI ABEL DO [facility] 11-27-2021 13:20-0500 Diastolic Blood Pressure NBP 84 1 ESTEPHANIA HANCOCK MD [facility] 11-27-2021 13:20-0500 Heart rate 79 /min ESTEPHANIA HANCOCK MD [facility] 11-27-2021 13:20-0500 Systolic Blood Pressure NBP 127 1 ESTEPHANIA HANCOCK MD [facility] 11-27-2021 13:15-0500 Diastolic Blood Pressure NBP 84 1 ESTEPHANIA HANCOCK MD [facility] 11-27-2021 13:15-0500 Heart rate 81 /min ESTEPHANIA HANCOCK MD [facility] 11-27-2021 13:15-0500 Systolic Blood Pressure NBP 123 1 ESTEPHANIA HANCOCK MD [facility] 11-27-2021 13:06-0500 Diastolic Blood Pressure NBP 85 1 ESTEPHANIA HANCOCK MD [facility] 11-27-2021 13:06-0500 Heart rate 84 /min ESTEPHANIA HANCOCK MD [facility] 11-27-2021 13:06-0500 Systolic Blood Pressure NBP 112 1 ESTEPHANIA HANCOCK MD [facility] 11-27-2021 12:54-0500 Body temperature 97.16 [degF] ESTEPHANIA HANCOCK MD [facility] 11-27-2021 12:45-0500 Respiratory rate 22 /min ESTEPHANIA HANCOCK MD [facility] 11-27-2021 12:40-0500 Respiratory rate 25 /min ESTEPHANIA HANCOCK MD [facility] 11-27-2021 12:35-0500 Respiratory rate 17 /min ESTEPHANIA HANCOCK MD [facility] 11-27-2021 11:04-0500 Body height 172.6 cm ESTEPHANIA HANCOCK MD [facility] 11-27-2021 10:41-0500 Body height 172.6 cm ESTEPHANIA HANCOCK MD [facility] 11-27-2021 10:41-0500 Body temperature 97.88 [degF] ESTEPHANIA HANCOCK MD [facility] 11-27-2021 10:41-0500 Body weight 115.9 kg ESTEPHANIA HANCOCK MD [facility] 11-27-2021 10:41-0500 Diastolic blood pressure 76 mm[Hg] ESTEPHANIA HANCOCK MD [facility] 11-27-2021 10:41-0500 Heart rate 95 /min ESTEPHANIA HANCOCK MD [facility] 11-27-2021 10:41-0500 Systolic blood pressure 155 mm[Hg] ESTEPHANIA HANCOCK MD [facility] Encounters Encounter Date Encounter Type Care Provider Facility Start: 07-19-2025 End: 07-19-2025 ambulatory NARA BALTES [employer] Facility:[facility] Start: 07-19-2025 End: 07-19-2025 Patient encounter procedure ANGELA GOMEZ MD [facility] Start: 07-12-2025 End: 07-12-2025 ambulatory NARA BALTES [employer] Facility:[facility] Start: 07-12-2025 End: 07-12-2025 Patient encounter procedure ANGELA GOMEZ MD [facility] Start: 06-01-2025 End: 06-05-2025 ambulatory NARA BALTES [employer] Facility:[facility] Start: 06-01-2025 End: 06-05-2025 Outreach Lab NARA BALMELL [employer] [facility] Start: 04-22-2025 End: 04-22-2025 ambulatory Nara Julienmell [employer] SPECIALIST-C Work Phone: -Laboratory Start: 04-22-2025 End: 04-22-[address] Katie Beatty MD -Laboratory Work Phone: Start: 04-22-2025 End: 04-22-2025 ambulatory Nara Piper MEDICAL RECORD SPECIALIST Facility:[facility] Start: 01-25-2025 End: 01-25-2025 ambulatory NARA BALTES [employer] [facility] Start: 01-25-2025 End: 01-25-2025 Minor Procedure ANASTASIA ROMAN DO [facility] Start: 11-24-2024 End: 11-24-2024 ambulatory NARA BALTES [employer] Facility:[facility] Start: 11-24-2024 End: 11-24-2024 Patient encounter procedure NARA BALTES [employer] [facility] Start: 01-09-2024 End: 01-14-2024 ambulatory NARA BALTES [employer] Facility:[facility] Start: 01-09-2024 End: 01-13-2024 Outreach Lab NARA BALTES [employer] [facility] Start: 10-03-2023 End: 10-04-2023 ambulatory NARA BALTES [employer] Facility:[facility] Start: 02-07-2023 End: 02-08-2023 ambulatory NARA BALTES [employer] Facility:[facility] Start: 02-07-2023 End: 02-07-2023 Patient encounter procedure NARA BALTES [employer] [facility] Start: 12-20-2022 End: 12-24-2022 Outreach Lab NARA BALTES [employer] [facility] Start: 09-06-2022 End: 09-06-2022 Patient encounter procedure NARA PIPER [employer] [facility] Start: 11-27-2021 End: 11-27-2021 Minor Procedure ESTEPHANIA HANCOCK MD [facility] Start: 12-06-2020 End: 12-06-2020 Patient encounter procedure IOANA Mera EDINSON [facility] Start: 04-10-2017 End: 04-11-2017 Ambulatory [facility] Facility:[facility] Start: 04-05-2017 End: 04-06-2017 Ambulatory ANGELA HURON Facility:[facility] Start: 04-03-2017 Ambulatory [facility] Facility: [facility] Start: 03-27-2017 End: 03-28-2017 Ambulatory [facility] Facility:[facility] Procedures Date Procedure Procedure Detail Performing Clinician Start: 09-30-2016 Total knee replacement ESTEPHANIA HANCOCK MD Comment on above: L Start: 02-22-2016 Cardiac catheterization ESTEPHANIA HANCOCK MD Comment on above: Dr. Perez Start: 11-29-2015 Cardiovascular stres s testing ESTEPHANIA HANCOCK MD Comment on above: [place] Start: 10-28-2015 Hernia repair ESTEPHANIA Orourke MD [...] HANCOCK MD Extraction of wisdom tooth D IKRSTEN HANCOCK MD Insertion of pleural tube drain ESTEPHANIA HANCOCK MD Comment on above: left Lumpectomy of breast ESTEPHANIA TARANGO MD Comment on above: left Septoplasty/submucou s resecj w/wo cartilage grf ESTEPHANIA HANCOCK MD Tooth and periodonti um operation ESTEPHANIA HANCOCK MD Immunizations Immunization Date Immunization Notes Care Provider Fa [facility] 07-14-2024 influenza virus vacc ine, unspecified formulation NARA PIPER [employer] [facility] 06-21-2023 influenza virus vacc ine, unspecified formulation NARA PIPER [employer] [facility] 06-21-2023 RSV vaccine preF3, recombinant NARA PIPER [employer] [facility] 07-20-2022 influenza virus vacc ine, unspecified formulation NARA PIPER [employer] [facility] 01-10-2022 pneumococcal 20-fiordaliza nt conjugate vaccine NARA PIPER [employer] [facility] 09-20-2021 influenza virus vacc ine, unspecified formulation ESTEPHANIA HANCOCK MD [facility] 09-20-2021 SARS-CoV-2 mRNA (toshazianameran) vaccine ESTEPHANIA HANCOCK MD [facility] 12-06-2020 SARS-CoV-2 (COVID-19 ) Ad26 vaccine, recombinant ESTEPHANIA HANCOCK MD [facility] 07-15-2020 influenza virus vacc ine, unspecified formulation ESTEPHANIA HANCOCK MD [facility] 07-15-2020 pneumococcal polysaccharide vaccine, 23 valent ESTEPHANIA HANCOCK MD [facility] 07-23-2019 influenza virus vacc ine, unspecified formulation ESTEPHANIA HANCOCK MD [facility] 07-23-2019 zoster vaccine recombinant ESTEPHANIA HANCOCK MD [facility] 02-27-2019 zoster vaccine recombinant NARA PIPER [employer] [facility] 02-27-2019 zoster vaccine, live ESTEPHANIA TARANGO MD [facility] 12-13-2018 tetanus toxoid, redu malia diphtheria toxoid, and acellular pertussis vaccine, adsorbed ESTEPHANIA HANCOCK MD [facility] 06-13-2018 influenza virus vacc ine, unspecified formulation ESTEPHANIA HANCOCK MD [facility] Comment on above: Result Comment: [05/31] Quad 05-15-2017 influenza virus vacc ine, unspecified formulation ESTEPHANIA HANCOCK MD [facility] 08-06-2016 influenza virus vacc ine, unspecified formulation ESTEPHANIA HANCOCK MD [facility] 08-08-2015 influenza virus vacc ine, unspecified formulation ESTEPHANIA HANCOCK MD [facility] 08-06-2014 influenza virus vacc ine, unspecified formulation ESTEPHANIA HANCOCK MD [facility] 08-04-2013 influenza virus vacc ine, unspecified formulation ESTEPHANIA HANCOCK MD [facility] 08-04-2013 pneumococcal polysaccharide vaccine, 23 valent ESTEPHANIA HANCOCK MD [facility] 08-05-2012 influenza virus vacc ine, unspecified formulation ESTEPHANIA HANCOCK MD [facility] Payers Date Payer Category Payer Private Health Insurance [facility] [id number] 2025 Self-pay 2025 Unknown [id number] 2024 Unknown [id number] 2023 Unknown [id number] 2013 Unknown [id number] 1962 Unknown [id number] 2.16.8 [id number] 1962 Unknown [id number] 2.16.8 [id number] 1962 Unknown [id number] 2.16.8 [id number] 1962 Unknown [id number] 2.16. [id number] 1962 Unknown [id number] 2.16. [id number] 1962 Unknown [id number] 2.16. [id number] 1962 Unknown [id number] 2.16.8 [id number] 1962 Unknown [id number] 2.16.8 [id number] 1962 Unknown [id number] 2.16.84 [id number] Unknown [id number] Unknown [id number] 2.16.8 [id number] Social History Date Type Detail Facility Start: 06-15-2019 End: 06-01-2025 Ex-smoker (finding) [facility] Comment on above: Quit chew 04/06 Only smoked in high school. Quit chew 06/02/2008. Start: 1960 Sex Assigned At Male A [facility] Sexual Orientation [facility] Start: 12-03-2019 Sex Male (finding) [facility] Work Phone: Functional Status Date Assessment Result Facility 01-25-2025 Functional Status Maintained [facility] Mental Status Date Assessment Result Facility 01-25-2025 Mental Status Oriented x 4 [facility] 01-25-2025 Mental Status [facility] Clinical Notes 11-27-2021 to 07-12-2025 Note Date & Type Note Facility 07-12-2025 Note Exam Date Time Procedure Performing Provider Status 07/12/25 7:[address] Knee w/o Contrast LILLIAN Orantes MD; Auth (Verified) [id number] ORIGINAL EXAMINATION: CT OF THE RIGHT KNEE WITHOUT CONTRAST 07/12/2025 7:59 am TECHNIQUE: CT of the right knee was performed without the administration of intravenous contrast. Multiplanar reformatted images are provided for review. Automated exposure control, iterative reconstruction, and/or weight based adjustment of the mA/kV was utilized to reduce the radiation dose to as low as reasonably achievable. MA KO protocol was performed with axial images through the right hip and right ankle. COMPARISON: None. HISTORY ORDERING SYSTEM PROVIDED HISTORY: Reason for Exam: OSTEOARTHRITIS RIGHT KNEE Chronic rt knee pain, no recent injury. AS1 protocol per order FINDINGS: There is no acute fracture or dislocation. There is no suspicious lytic or blastic osseous lesion. There is no aggressive periosteal reaction. Small fat containing right inguinal hernia. Prostate gland is enlarged measuring up to 5.5 cm in transverse dimension with prostatic calcifications. Moderate right femoroacetabular osteoarthritis most marked in the superolateral joint space with subchondral sclerosis and subchondral cysts. Pubic symphysis aligned. Moderate tricompartmental osteoarthritis of the right knee most advanced in the medial compartment with asymmetric joint space narrowing, subchondral sclerosis and vacuum phenomena. There is tricompartmental spurring. Trivial knee joint effusion. Lateral patellar subluxation. Os trigonum. Chronically fragmented ossicles at the tip of the medial malleolus. There is no evidence of solid or cystic soft tissue mass. IMPRESSION: 1. Moderate tricompartmental osteoarthritis of the right knee most advanced in the medial compartment. 2. Moderate right femoroacetabular osteoarthritis. 3. Prostatomegaly. Consider correlation with PSA. Interpreted by: Dayana Meyers Preliminary Report By: Dayana Meyers Electronically signed By Dayana Meyers Dictated Date: 07/12/2025 9:48:17 AM Prelim Date: 07/12/2025 9:57:29 AM Sign Date: 07/12/2025 9:57:29 AM Ordering Provider: ANGELA GOMEZ RP [facility]04-28-2025 Hospital Discharge instructions Patient Education 01/25/2025 13:17:12 Monitored Anesthesia [...] before eating solid foods. General instructions Take cstv-pnn-lhkvmjt and prescription medicines only as told by [...] 01/06/2017 Document Revised: 12/15/2018 Document Reviewed: 01/06/2017 Social Tables Patient Education 2020 [employer]. 01/25/2025 13:17:10 Colonoscopy, Adult, Care After Colonoscopy, [...] a slower pace than normal. ?Eat soft, yctu-rd-sctvid foods. Take jjni-vaz-tfehamq or prescription medicines only as told by [...] 04/30/2005 Document Revised: 07/09/2018 Document Reviewed: 11/27/2016 Social Tables Patient Education 2020 [employer]. Follow Up Care 01/14/2025 08:14:44 With:ANASTASIA ROMAN DO, Clinical Gastroenterology Address: [address] [place] [address] [place] [address] [phone] When:Within 5 Year(s) With:[facility] Address: [address] [place] [address] [place] [phone] When: Unknown [facility] 04-28-2025 Evaluation + Plan noteExtracted from: Title:Clinical Document Author:ANASTASIA ROMAN ate:01/25/25 [employer] ADMISSION HISTORY AN D PHYSICIAL CHIEF COMPLAINT: Colorectal cancer screening, high risk HISTORY OF PRESENT ILLNESS: Personal history of colon polyps REVIEW OF SYSTEMS: Constitutional: denies weight loss Cardiovascular:denies chest pain, palpitations Respiratory:denies shortness of breath Gastrointestinal:no abd pain Musculoskeletal: no arthralgias Skin: no rashes ACTIVE PROBLEMS: (19) Arthritis (3089959) Asthma ([id number]) Chronic 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 (6206476511) CKD (chronic kidney disease), stage II (7757750925) Corneal abrasion (520855729) COVID (1843403257) Depression ([id number]) Diabetic eye exam (576668372) Eustachian tube disorder (975474126) Hypercholesteremia ([id number]) Migraine (98673649) Pneumothorax (92901536) Screening for colon cancer (667928340) Screening for diabetic peripheral neuropathy (560521507) Screening for prostate cancer (739763914) Sleep apnea (807143691) Type 2 diabetes mellitus (843429873) Type 2 diabetes mellitus with peripheral neuropathy (227735785) Well adult exam (168516184) MEDICATIONS: Active Inpt Meds: None Active PRN [...] Appointment Date:06/01/2025 07:30:00 AM Scheduled Provider:NARA PIPER [facility] Appointment Type: Wellness Annual [facility] 04-28-2025 Note Discharge Instructions Thank you for allowing [facility] [place] to assist you with your healthcare needs. The following is importantdischarge information regarding your hospital visit. What to do next Instructions From Your Doctor Repeat colonoscopy 5 years Scheduled Follow-Up Appointments Appointment Type When With Where Contact Information Status Wellness Annual 06/01/2025 07:30 AM EDT NARA PIPER [facility] Physicians [address] [phone] Confirmed Follow Up Appointments Follow Up with ANASTASIA ROMAN DO, Clinical Gastroenterology When:In 5 years Where:[address] [place] [address] [place] [phone] Follow Up with NARA IPPER APRN-ASSISTANT PLANT CONTROLLER Where:[address] [facility] [place] [phone] The Following Activity and Diet Have Been [...] as provided by your GI provider at [place]. Unchanged sertraline (sertraline 100 mg oral tablet) [...] before eating solid foods. General instructions Take kmjp-osb-wirbisf and prescription medicines only as told by [...] 01/06/2017 Document Revised: 12/15/2018 Document Reviewed: 01/06/2017 Social Tables Patient Education 2020 EARTHTORY. Colonoscopy, Adult, Care After This sheet gives [...] slower pace than normal. ? Eat soft, fnet-cb-jksvuh foods. Take zijj-iht-hxswcyz or prescription medicines only as told by [...] 04/30/2005 Document Revised: 07/09/2018 Document Reviewed: 11/27/2016 Elsevier Patient Education 2020 Social Tables Inc. Additional Information VACCINATE! IT SAVES LIVES! Members of the community who have not yet received the COVID-19 vaccine and would like to receive it can visit one of [facility] vaccine clinics. There are many vaccine clinic locations within the [facility]. For locations and available times, please visit [email or web address] It is important to note that some COVID mobile vaccine clinics are held outdoors and may be canceled in rainy or stormy conditions. To learn more about pediatric vaccinations (ages 5-11), we invite you to visit the [employer] webpage. [email or web address]/[email or web address] [email or web address] learn more about the COVID-19 vaccine, we invite you to visit the CDC website for a list of frequently asked questions.https://www.cdc.gov/coronavirus/2019-ncov/vaccines/faq.html [facility] Patient Portal Access Instructions: Stay connected with your healthcare team and access your personal medical information anytime with the [facility] Patient Portal. Please follow the directions below to create your [facility] account: 1.Access the email account you provided upon registration to the hospital/physician office.2.Look for an invitation email from [facility].3.Open the email and access the invitation link: AcceptInvitation to [facility].4.Fill in the required de la fuente to create your account. To access your account, visit [employer]. Click the blue button labeled "Access Patient Portal" and then log in with the username and password that you created in the steps above. You will be able to view your test results, lab results, a summary of your visits, upcoming appointments and more. There is also a convenient messaging option where you can send secure messages to your p tanishavider. In addition, you will have the ability to download any documents or summaries to your computer and/or send the information securely to a physician. Remember that your healthcare information is confidential, so carefully consider who you will allowto register on the [facility] Portal for access to your information. You can also access the [facility] Patient Portal on the [place] [facility] janee. Simply click on "Patient Portal" and then log into your account. If you would like to receive a full copy of your medical records, please contact the [facility] Medical Records Department by calling [phone], Saturday through Saturday between 8 a.m. and [...] Call your local pharmacy or go to [email or web address]/3B9Be1l to find one close to you.3.Make use of household items: Use cat litter or old coffee grounds to dispose medications if other options arenot available. Mix your drugs with these household products, seal them in an airtight container andthrow it into the garbage. Call [facility]: [phone] to be sure your drugs can be [...] am aware that I should contactmy doctor. 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: Date/Time: Relationship to Patient: Witness Name/Signature: Date/Time: [facility]04-28-2025 Anesthesiology Consult note Patient: DIONICIO FRASER Age: 64 years Sex: Male : 1960 Associated Diagnoses: None Author: SON LAUREN APRN-HAT MAKER Assessment Postanesthesia assessment Vitals: Vital signs from [...] by SON LAUREN on 01/25/2025 01:[address]28-2025 Note Indication for Surgery Colorectal cancer screening, [...] ANASTASIA ROMAN DO on 01/25/2025 01:[address]28-2025 Anesthesiology Consult note Patient: DIONICIO FRASER Age: 64 years Sex: Male : 1960 Associated Diagnoses: None Author: SON LAUREN APRN-ANGELITA Preoperative Information Time of last food or [...] as provided by your GI provider at [place]., 1 EA, 0 Refill(s) Singulair 10 mg [...] Problem list: Medical Arthritis / SNOMED CT 2703066 / Confirmed Asthma / SNOMED CT [id number] / Confirmed Chronic 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 / SNOMED CT 1173340054 / Confirmed CKD (chronic kidney disease), stage II / SNOMED CT 8407024704 / Confirmed Corneal abrasion / SNOMED CT 807091581 / Confirmed COVID / SNOMED CT 0793294568 / Confirmed Depression / SNOMED CT [id number] / Confirmed Eustachian tube disorder / SNOMED CT 126484447 / Confirmed Hypercholesteremia / SNOMED CT 88820E1G-21N7-5K95-P56C-43K3Y0J78O84 / Confirmed Migraine / SNOMED CT 08300962 / Confirmed Well adult exam / SNOMED CT 972616552 / Confirmed Screening for colon cancer / SNOMED CT 771690393 / Confirmed Screening for prostate cancer / SNOMED CT 903510552 / Confirmed Screening for diabetic peripheral neuropathy / SNOMED CT 018669644 / Confirmed Diabetic eye exam / SNOMED CT 905766165 / Confirmed Pneumothorax / SNOMED CT 86385668 / Confirmed Sleep apnea / SNOMED CT 672375960 / Confirmed Type 2 diabetes mellitus with peripheral neuropathy / SNOMED CT 309401230 / Confirmed Type 2 diabetes mellitus / SNOMED CT 792928564 / Confirmed Canceled: Diabetes mellitus / SNOMED CT 990434946 Canceled: Type 2 diabetes mellitus / SNOMED CT 205853405, Active Problems (19) Arthritis Asthma Chronic kidney [...] exam Histories Past Medical History: Active Depression ([id number]) Pneumothorax (19701940) Comments: 09/07/2014 EST 10:11 JENNIFER Gonzales left Sleep apnea (147885571) Arthritis (2666720) Family History: Patient was adopted. Asthma Daughter Son Depression Son Procedure history: Total knee replacement, L (0346004240) in 2017 at 57 Years. Comments: 06/15/2019 6:58 Ninoska Peterson LPN Cardiac catheterization ([id number]) on 02/22/2016 at 55 Years. Comments: 06/15/2019 6:59 Ninoska Peterson LPN, Dr. Cardiovascular stress testing (243048733) on 11/29/2015 at 55 Years. Comments: 06/15/2019 7:03 Ninoska Peterson LPN Daya Hernia repair, umbilical (24680681) on 10/28/2015 at 55 Years. Comments: 06/15/2019 7:01 Ninoska Peterson LPN Umbilical w/mesh-Dr. Hancock Pulmonary function test (12235501) on 06/15/2011 at 51 Years. Comments: 06/15/2019 7:04 Ninoska Peterson LPN Mod/Severe Obs Vent Impairment Breast biopsy ([id number]) on 07/04/2009 at 49 Years. Comments: 10/06/2020 16:38 Ninoska Gann LPN L breast Mammogram ([id number]) on 06/21/2009 at 49 Years. Comments: 06/15/2019 7:06 Ninoska Peterson LPN, probable gynecomastia Ultrasound, L breast (833374512) on 06/21/2009 at 49 Years. Comments: 06/15/2019 7:06 Ninoska Peterson LPN probable gynecomastia Arthroscopy of knee (156484913). Comments: 09/07/2014 10:06 JENNIFER GONAZLES bilateral Septoplasty or submucous resection, with or without cartilage scoring, contouring or replacement with graft (17750). Lumpectomy of breast (1943712746). Comments: 09/07/2014 10:06 JENNIFER GONZALES left Insertion of chest tube (9716860468). Comments: 09/07/2014 10:07 JENNIFER GONZALES left Teeth operation (615929654). Extraction of wisdom tooth (160866261). Cleft palate and cleft lip ([id number]-[id number]-I45V9B25IUX6). Social History: Social & Psychosocial Habits Alcohol 01/13/2025 Use: Never Employment/School 01/13/2025 Status: Employed Description: [employer] Substance Abuse 01/13/2025 Use: Never Tobacco 01/13/2025 Tobacco Use: Former smoker, quit more Comment: Only smoked in high school. Quit chew 06/02/2008. 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 Nutrition/Health 01/13/2025 Type of diet: Regular [...] Signs (last 24 hrs) Last Charted Temp [place]25.4 DegC (JAN 25 12:22) Heart Rate Yjrctipfg67 bpm (JAN 25 13:00) OLP340 mmHg (JAN 25 12:55) DBP62 mmHg (JAN 25 12:55) BMI30.18 (JAN 25 12:32) Measurements from flowsheet : Measurements 01/25/2025 12:32 EDT Height 172.7 cm Admission Weight 90 kg [place] Body Weight 68.38 kg BSA Admission 2.04 Body Mass Index 30.18 kg/m2 01/25/2025 12:22 EDT Height 172.7 cm Height in inches 68 inch(es) Admission Weight 90 kg Weight Lbs 198 lb [place] Body Weight 68.38 kg Admission Body Mass [...] % % 01/25/2025 12:59 EDT SN - [place] - Medication simethicone 40 mg/0.6 mL Liquid 30mL SN - [place] - Route of Administration Local SN - [place] - By (Single) SN - [place] - By (Single) SN - [place] - Time Administered 01/25/2025 12:58 01/25/2025 12:55 [...] Nurse SN - CAt - Role Performed Home Health Care Social Worker SN - CAt - Role Performed HAT MAKER SN - CAt - Role Performed Primary Surgeon 01/25/2025 12:40 EDT Sodium Chloride 0.9% Begin Bag 1,000 mL mL 01/25/2025 12:38 EDT Respirations Unlabored All Lobes Breath Sounds Clear Cough None Abdomen Description Non-distended Skin Description [place] Skin Temperature Warm Skin Integrity Intact Skin [...] Allergies Yes Anesthesia Extension Set Applied Yes Clinical Trials Nurse On Yes Colon Prep Results Good Consent [...] EDT Designated Person #1 We May Share PHI Designated Person #1 We May Share PHI Designated Person #1 Relationship Spouse Height 172.7 cm Admission Weight 90 kg [place] Body Weight 68.38 kg BSA Admission 2.04 [...] evident Teaching Method Explanation Preferred Spoken Language Tanzanian Preferred Written Language Tanzanian Patient's Current Physicians Patient's Current Physicians Discharge [...] Weight 90 kg Weight Lbs 198 lb [place] Body Weight 68.38 kg Admission Body Mass [...] Orientation Oriented x 4 01/25/2025 12:21 EDT Banks History and Physical . Assessment and Plan [place] Society of Anesthesiologists (ASA) physical status classification: Class II. Anesthetic Preoperative Plan Premedication: intravenous. Anesthetic technique: MAC. Induction: intravenously. Maintenance airway: Mask. Risks discussed: nausea, vomiting, headache, sore throat, dental injury, hypotension, allergic reaction, serious complications. Informed consent: signed by patient. Digitally Signed by LEONIDAS SON Jeri VEGA on 01/25/2025 01:10 PM [facility]04-28-2025 Note LAWTELL ADMISSION HISTORY AND PHYSICIAL CHIEF COMPLAINT: Colorectal cancer screening, high risk HISTORY OF PRESENT ILLNESS: Personal history of colon polyps REVIEW OF SYSTEMS: Constitutional: denies weight loss Cardiovascular:denies chest pain, palpitations Respiratory:denies shortness of breath Gastrointestinal:no abd pain Musculoskeletal: no arthralgias Skin: no rashes ACTIVE PROBLEMS: (19) Arthritis (2986935) Asthma ([id number]) Chronic 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 (1375467092) CKD (chronic kidney disease), stage II (2539809898) Corneal abrasion (618143838) COVID (0683606089) Depression ([id number]) Diabetic eye exam (975552308) Eustachian tube disorder (363645234) Hypercholesteremia (67586P0N-68X0-1Q34-A87P-48K7G8G43D72) Migraine (33797652) Pneumothorax (41944872) Screening for colon cancer (656661717) Screening for diabetic peripheral neuropathy (941372765) Screening for prostate cancer (495294282) Sleep apnea (674741290) Type 2 diabetes mellitus (830099115) Type 2 diabetes mellitus with peripheral neuropathy (336375146) Well adult exam (684620143) MEDICATIONS: Active Inpt Meds: None Active PRN [...] ANASTASIA ROMAN DO on 01/25/2025 12:21 PM [facility]05-11-2023 Note ORIGINAL EXAMINATION: TWO XRAY VIEWS [...] Date: 02/07/2023 9:56:08 PM Ordering Provider: NARA [facility]05-11-2023 Note ORIGINAL EXAMINATION: TWO XRAY [...] Sign Date: 02/07/2023 9:56:08 PM Ordering Provider: [facility]02-28-2022 Hospital Discharge instructions Patient Education 11/27/2021 13:04:58 Colonoscopy, Adult, Care After, Ymti-fq-Ehbr Colonoscopy, Adult, Care After This sheet gives [...] are soft and easy to digest. Take nrdn-kuq-uhwatbz or prescription medicines only as told by [...] 10/19/2011 Document Revised: 07/17/2018 Document Reviewed: 06/10/2017 Social Tables Patient Education 2020 EARTHTORY. 11/27/2021 13:04:45 Monitored Anesthesia Care, Care After [...] before eating solid foods. General instructions Take whkb-adn-xlashex and prescription medicines only as told by [...] 01/06/2017 Document Revised: 12/15/2018 Document Reviewed: 01/06/2017 Social Tables Patient Education 2020 EARTHTORY. 11/27/2021 13:04:25 Colon Biopsy, Care After Colon [...] a slower pace than normal. ?Eat soft, lwbb-kx-ipwdov foods. ?Rest often. Take shvg-bux-ohvxzyy or prescription medicines only as told by [...] 02/25/2018 Document Revised: 08/29/2018 Document Reviewed: 02/25/2018 Social Tables Patient Education 2020 EARTHTORY. Follow Up Care 10/16/2021 15:01:48 With:ESTEPHANIA HANCOCK MD, Surgery Address: [phone] When: Unknown Comments:CALL THE OFFICE TO MAKE A 2 WEEK FOLLOW UP APPOINTMENT TO DISCUSS THE RESULTS OF THE 3 POLYPS. CALLDR KARISSA WITH ANY QUESTIONS. TO GO THE EMERGENCY ROOM WITH ANY URGENT CONCERNS. [facility] Evaluation + Plan note Future Appointments Appointment Date:03/06/2022 07:30:00 AM Scheduled Provider:NARA PIPER [facility] Appoint[facility] Type:PC OV [facility] Evaluation + Plan note Future Appointments Appointment Date:09/13/2022 11:00:00 AM Scheduled Provider:NARA PIPER [facility] Appointment Type:PC OV Follow Up [facility] Evaluation + Plan note Future Appointments Appointment Date:03/28/2023 04:30:00 PM Scheduled Provider:NARA PIPER [facility] Appointment Type:PC OV [facility] Evaluation + Plan note Future Appointments Appointment Date:04/09/2024 04:30:00 PM Scheduled Provider:NARA PIPER Location:[facility] Appointment Type:PC OV [facility] Evaluation + Plan note Future Appointments Appointment Date:12/01/2024 07:30:00 AM Scheduled Provider:NARA PIPER Location:[facility] Appointment Type:PC Wellness Annual [facility] Evaluation + Plan note Future Appointments Appointment Date:08/24/2025 07:30:00 AM Scheduled Provider:NARA PIPER Location:[facility] Appointment Type:PC OV Pre Op Future Scheduled Tests Laboratory* Prostate Specific Antigen 11/29/25 * Complete Blood Count 11/29/25 * Lipid Profile 11/29/25 * Complete Metabolic Panel 11/29/25 [facility] Evaluation noteNo assessment information available [facility] Work Phone: Hospital course Narrative No data available for this section [facility] Hospital Discharge instructions No data available for this section [facility] Progress note No data available for this section [facility] Reason for referral (narrative)No reason for referral information availableK[facility] Work Phone: Summary Purpose Family History No Family History [...] ized section and content) DATE CREATED AUTHOR 03/26/2018 [facility] DATE CREATED AUTHOR AUTHOR'S ORGANIZ ATION 12/14/2020 [facility] DATE CREATED AUTHOR AUTHOR'S ORGANIZ ATION 01/14/2024 [facility] ([place]) DATE CREATED AUTHOR AUTHOR'S ORGANIZ ATION 04/29/2025 [facility] DATE CREATED AUTHOR AUTHOR'S ORGANIZ ATION 07/23/2025 [facility] Care Team (unrecognized sect ion and content) Care Team Personnel Name: NARA PIPER APRN-[facility] Position: P4 Advanced Practice Nurse Member Role: Primary Care Physician Address: Address: [address] [facility] [place], [place] [address] Name: LESLEY BAZAN MD Position: [facility] Physician Member Role: Neurologist Address: Address: [address] [place] [address] [facility], [place] [address] Name: Arsen Waddell Member Role: Candy Mixer Care Team Related Persons Name: AVE FRASER Address: [place] [address] [place], [place] [phone] Patient Care team informatio n (unrecognized section and content) Team Status: Active Member Role/Relationship Status Dates Dr. Katie Engle MD Family Provider Active Nara Piper MEDICAL RECORD SPECIALIST, MEDICAL RECORD SPECIALIST-C Primary Care Provider Active Team Status: Inactive Member Role/Relationship Status Dates Nara Piper MEDICAL RECORD SPECIALIST, MEDICAL RECORD SPECIALIST-C Primary Care Provider Active Start: April 22, 2025 End: April 22, 2025 Dr. Katie Beatty MD Attending Provider Active Start: April 22, 2025 End: April 22, 2025 Dr. Katie Beatty MD Referring Provider Active Start: April 22, 2025 End: April 22, 2025 Goals (unrecognized section and content) Goals may be documented in a n alternate section FOR RECORDS PERTAINING TO PATIENTS WHO ARE [...] BE BASED ON THE PRIMARY CLINICAL RECORDS. [facility] [employer] [facility]. provides no warranty or guarantee of the accuracy or completeness of information in this document.
== END | disposition home or self-care (01) ==
LOC: LABSPEC 15:19
PROVIDERS: PCP Nurse Practitioner Primary Care; Referring Provider Orthopaedic Surgery; Visit Provider Orthopaedic Surgery
DX: M17.11 Unilateral primary osteoarthritis, right knee (principal)
CPT/HCPCS: 88304; 88311